=== PATIENT | female | born 1985 | race Caucasian/White ===

== ENCOUNTER → 2017-01-06 | Emergency (ER) | payer SELFPAY ==
[~2017-01-06] MED LIST: CEPHALEXIN MONOHYDRATE 250 MG CAPSULE (FP) ONE; CEPHALEXIN MONOHYDRATE 500 MG CAPSULE (UD) PO ONE; PHENAZOPYRIDINE HCL 100 MG TABLET (FP) ONE; PHENAZOPYRIDINE HCL 100 MG TABLET (FP) PO ONE
[2017-01-06 23:16] VITALS: BP 134/84; PULSE 100; TEMP 97.4; BMI 25.3
--- NOTE | 2017-01-06 23:21 | PDOC ---
History of Present Illness - History of Present Illness Initial Comments: 01/06/17 23:30 Patient is a 31 year old female with no significant medical hx who is presenting to the ED with several days of pain with urination. The patient states that its very uncomfortable for her to empty her bladder. She reports some associated yellow discharge. Denies abdominal pain, nausea, vomiting, or hematuria. The patient states that she's been with her boyfriend for the past two years. Denies chronic medications, past medical hx, and past surgeries. Social Hx: Occasional alcohol and tobacco use. LNMP: 11/26/16 <Jackeline Jacome - Last Filed: 01/06/17 23:30> <Jj Solomon - Last Filed: 01/07/17 00:50> - General Chief Complaint: Urinary Problem Stated Complaint: URINARY PROBLEM Time Seen by Provider: 01/06/17 23:20 Past History <Jackeline Jacome - Last Filed: 01/06/17 23:30> - Past Medical History Suicide Attempt (Hx): No - Reproductive History (#): 1 Para: 0 Cervical CA: No Dysfunctional Uterine Bleeding: No Ectopic : No Endometrial CA: No Polycystic Ovaries: No Therapeutic (s) & number: Yes Tubal Ligation: No Spontaneous : 0 - Immunization History Immunization Up to Date: Yes - Psycho/Social/Smoking Cessation Hx Anxiety: No Suicidal Ideation: No Smoking Status: Yes Smoking History: Never smoked Have you smoked in the past 12 months: No Number of Cigarettes Smoked Daily: 3 Information on smoking cessation initiated: No 'Breaking Loose' booklet given: 05/27/15 Hx Alcohol Use: No Drug/Substance Use Hx: No Substance Use Type: None <Jj Solomon - Last Filed: 01/07/17 00:50> - Past Medical History Allergies/Adverse Reactions: Allergies Allergy/AdvReac Type Severity Reaction Status Date / Time latex Allergy Mild Hives Verified 01/06/17 23:13 No Known Drug Allergies Allergy Verified 01/06/17 23:13 SEAFOOD Allergy Mild Hives Uncoded 01/06/17 23:13 Home Medications: Ambulatory Orders Cephalexin [Keflex] 500 mg PO QID #40 capsule 01/07/17 Phenazopyridine HCl [Pyridium] 200 mg PO TID #9 tablet 03/24/17 Review of Systems - Review of Systems Comments:: 01/06/17 23:33 GENERAL/CONSTITUTIONAL: No fever or chills. No weakness. HEAD, EYES, EARS, NOSE AND THROAT: No change in vision. No ear pain or discharge. No sore throat. CARDIOVASCULAR: No chest pain or shortness of breath. RESPIRATORY: No cough, wheezing, or hemoptysis. GASTROINTESTINAL: No nausea, vomiting, diarrhea or constipation. GENITOURINARY: Dysuria, vaginal discharge. No frequency. MUSCULOSKELETAL: No joint or muscle swelling or pain. No neck or back pain. SKIN: No rash NEUROLOGIC: No headache, vertigo, loss of consciousness, or change in strength/ sensation. <Jackeline Jacome - Last Filed: 01/06/17 23:30> *Physical Exam - Vital Signs Last Vital Signs Temp Pulse Resp BP Pulse Ox 97.4 F L 100 H 14 134/84 100 01/06/17 23:13 01/06/17 23:13 01/06/17 23:13 01/06/17 23:13 01/06/17 23:13 - Physical Exam Comments: 01/06/17 23:34 GENERAL: Awake, alert, and fully oriented, in no acute distress HEAD: No signs of trauma EYES: PERRLA, EOMI, sclera anicteric, conjunctiva clear ENT: Auricles normal inspection, hearing grossly normal, nares patent, oropharynx clear without exudates. Moist mucosa NECK: Normal ROM, supple, no lymphadenopathy, JVD, or masses LUNGS: Breath sounds equal, clear to auscultation bilaterally. No wheezes, and no crackles HEART: Regular rate and rhythm, normal S1 and S2, no murmurs, rubs or gallops ABDOMEN: Soft, nontender, normoactive bowel sounds. No guarding, no rebound. No masses EXTREMITIES: Normal range of motion, no edema. No clubbing or cyanosis. No cords, erythema, or tenderness NEUROLOGICAL: Cranial nerves II through XII grossly intact. Normal speech, normal gait SKIN: Warm, Dry, normal turgor, no rashes or lesions noted. ENDOCRINE: No increased thirst. No abnormal weight change. HEMATOLOGIC/LYMPHATIC: No anemia, easy bleeding, or history of blood clots. ALLERGIC/IMMUNOLOGIC: No hives or skin allergy. <Jackeline Jacome - Last Filed: 01/06/17 23:30> - Vital Signs Last Vital Signs Temp Pulse Resp BP Pulse Ox 97.4 F L 100 H 14 134/84 100 01/06/17 23:13 01/06/17 23:13 01/06/17 23:13 01/06/17 23:13 01/06/17 23:13 <Jj Solomon - Last Filed: 01/07/17 00:50> *DC/Admit/Observation/Transfer - Attestations Scribe Attestion: 01/06/17 23:34 Documentation prepared by Jackeline Jacome, acting as hospitalist medical director for Jj Solomon MD. <Jackeline Jacome - Last Filed: 01/06/17 23:30> - Discharge Dispostion Admit: No - Attestations Physician Attestion: 01/06/17 23:21 I, Dr. Jj Solomon, attest that this document has been prepared under my direction and personally reviewed by me in its entirety. I further attest, that it accurately reflects all work, treatment, procedures and medical decision -making performed by me. <Jj Solomon - Last Filed: 01/07/17 00:50> Diagnosis at time of Disposition: Urinary tract infection Qualifiers: Urinary tract infection type: acute cystitis Hematuria presence: without hematuria Qualified Code(s): N30.00 - Acute cystitis without hematuria - Discharge Dispostion Disposition: HOME Condition at time of disposition: Good - Prescriptions Prescriptions: Cephalexin [Keflex] 500 mg PO QID #40 capsule Phenazopyridine HCl [Pyridium] 200 mg PO TID #9 tablet - Patient Instructions Printed Discharge Instructions: DI for Urinary Tract Infection (UTI) Additional Instructions: Blanca- Sorry this is so uncomfortable. Hopefully you will feel alot better in a day or two. Drink 5 twenty ounce bottles of water daily while taking the antibiotic. Return to us if worse. See your regular doctor next week. Best- Dr. Jj Solomon [PS stop the penicillin- the keflex willl take care of your teeth as well.] - Post Discharge Activity Work/School Note: Back to Work
[2017-01-07] LABS: URINE APPEARANCE CLEAR; URINE BILIRUBIN NEGATIVE (NEGATIVE); URINE BLOOD NEGATIVE (NEGATIVE); URINE COLOR LTYELLOW; URINE GLUCOSE (UA) NEGATIVE (NEGATIVE); URINE KETONE NEGATIVE (NEGATIVE); URINE NITRITE NEGATIVE (NEGATIVE); URINE PROTEIN NEGATIVE (NEGATIVE); URINE UROBILINOGEN NEGATIVE E.U./dl (0.2-1.0)
[2017-01-07 00:03] LABS: URINE LEUK ESTERASE 3+ (NEGATIVE)
[2017-01-07 00:11] LABS: URINE BACTERIA RARE /hpf (NONE SEEN); URINE MUCUS RARE; URINE RBC 5 /hpf (0-3); URINE WBC 92 /hpf (3-5)
== END | disposition home or self-care (01) ==
LOC: JER 22:59
DX: N30.00 Acute cystitis without hematuria (principal)
CPT/HCPCS: 36415; 81003; 81015; 84703; 87086; 87491; 87591; 99281-25

== ENCOUNTER 2017-06-09 05:01 | Emergency (ER) | payer SELFPAY ==
[2017-06-09 06:07] VITALS: BP 116/77; PULSE 82; BMI 24.3
[2017-06-09] MEDS ORDERED: KETOROLAC TROMETHAMINE 30 MG/1 ML VIAL IM ONE (06:26)
[2017-06-09] MEDS ORDERED: CLINDAMYCIN HCL 300 MG CAPSULE PO ONE (06:26)
--- NOTE | 2017-06-09 06:27 | PDOC ---
*Physical Exam - Vital Signs Last Vital Signs Temp Pulse Resp BP Pulse Ox 82 14 116/77 99 06/09/17 05:46 06/09/17 05:46 06/09/17 05:46 06/09/17 05:46 Medical Decision Making - Medical Decision Making 06/09/17 06:26 agree with care from coal deliverer Laith *DC/Admit/Observation/Transfer Diagnosis at time of Disposition: Pain due to dental caries - Prescriptions Prescriptions: Clindamycin [Cleocin -] 300 mg PO Q8H #30 capsule Oxycodone HCl/Acetaminophen [Endocet 7.5-325 mg Tablet] 1 each PO Q4H PRN #24 tablet MDD 6 tabs PRN Reason: Severe Pain Ketorolac Tromethamine [Toradol] 10 mg PO TID PRN #21 tablet PRN Reason: Mild Pain - Patient Instructions Printed Discharge Instructions: DI for Dental Pain Additional Instructions: Take medications as prescribed. Do not drive, drink alcohol, or operate heavy machinery while taking Endocet. Follow up with your dentist. Have fun at [employer]!! Print Language: VINCENTIAN
--- NOTE | 2017-06-09 06:32 | PDOC ---
History of Present Illness - General Chief Complaint: Toothache Stated Complaint: TOOTHACHE Time Seen by Provider: 06/09/17 06:23 History Source: Patient Exam Limitations: No Limitations - History of Present Illness Initial Comments: 06/09/17 06:27 32yo Female patient presents to ED c/o dental pain, which began last night. Patient states she broke her tooth 1 week ago, and has not follow up with dental. She states pain is sudden onset, traveling to side of face, ear and causing headache. She denies fever, cough, congestion, CP, diff breathing or any other complaints at this time. LNMP: May 20. Timing/Duration: getting worse Severity: moderate Modifying Factors: worse with: cold therapy, eating, immobilization, medication , movement, rest, other Associated Symptoms: denies: denies symptoms, chest pain, cough, diaphoresis, fever/chills, headaches, loss of appetite, malaise, nausea/vomiting, rash, seizure, shortness of breath, syncope, weakness, other Past History - Travel Traveled outside of the country in the last 30 days: No Close contact w/someone who was outside of country & ill: No - Past Medical History Allergies/Adverse Reactions: Allergies Allergy/AdvReac Type Severity Reaction Status Date / Time latex Allergy Mild Hives Verified 06/09/17 05:46 No Known Drug Allergies Allergy Verified 06/09/17 05:46 SEAFOOD Allergy Mild Hives Uncoded 06/09/17 05:46 Home Medications: Ambulatory Orders Clindamycin [Cleocin -] 300 mg PO Q8H #30 capsule 06/09/17 Ketorolac Tromethamine [Toradol] 10 mg PO TID PRN #21 tablet 06/09/17 Oxycodone HCl/Acetaminophen [Endocet 7.5-325 mg Tablet] 1 each PO Q4H PRN #24 tablet MDD 6 tabs 06/09/17 Suicide Attempt (Hx): No - Reproductive History (#): 1 Para: 0 Cervical CA: No Dysfunctional Uterine Bleeding: No Ectopic : No Endometrial CA: No Polycystic Ovaries: No Therapeutic (s) & number: Yes Tubal Ligation: No Spontaneous : 0 - Immunization History Immunization Up to Date: Yes - Psycho/Social/Smoking Cessation Hx Anxiety: No Suicidal Ideation: No Smoking Status: Yes Smoking History: Current every day smoker Have you smoked in the past 12 months: No Number of Cigarettes Smoked Daily: 5 Information on smoking cessation initiated: No 'Breaking Loose' booklet given: 05/27/15 Hx Alcohol Use: No Drug/Substance Use Hx: No Substance Use Type: None Review of Systems - Review of Systems Able to Perform ROS?: Yes Is the patient limited Croatian proficient: No HEENTM: Yes: Dental Problems All Other Systems: Reviewed and Negative *Physical Exam - Vital Signs Last Vital Signs Temp Pulse Resp BP Pulse Ox 82 14 116/77 99 06/09/17 05:46 06/09/17 05:46 06/09/17 05:46 06/09/17 05:46 - Physical Exam General Appearance: Yes: Nourished, Appropriately Dressed, Mild Distress. No: Apparent Distress, Moderate Distress, Severe Distress HEENT: positive: EOMI, SHAHRIAR, Normal ENT Inspection, Normal Voice, Symmetrical, TMs Normal, Pharynx Normal, Other (Tooth #20 with broken enamel, decay. No nerve root exposure noted. Mild gum line inflammation.) Neck: positive: Trachea midline, Normal Thyroid, Supple. negative: Lymphadenopathy (R), Lymphadenopathy (L), Rigidity, Tender lateral Respiratory/Chest: positive: Lungs Clear, Normal Breath Sounds. negative: Chest Tender, Respiratory Distress, Accessory Muscle Use, Labored Respiration, Rapid RR, Rhonchi, Stridor, Wheezing Cardiovascular: positive: Regular Rhythm, Regular Rate Extremity: positive: Normal Capillary Refill, Normal Inspection, Normal Range of Motion. 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 NML intact, Fully Oriented, Alert, Normal Mood/ Affect, Normal Response, Motor Strength 5/5 *DC/Admit/Observation/Transfer Diagnosis at time of Disposition: Pain due to dental caries - Discharge Dispostion Disposition: HOME Condition at time of disposition: Stable Admit: No - Prescriptions Prescriptions: Clindamycin [Cleocin -] 300 mg PO Q8H #30 capsule Oxycodone HCl/Acetaminophen [Endocet 7.5-325 mg Tablet] 1 each PO Q4H PRN #24 tablet MDD 6 tabs PRN Reason: Severe Pain Ketorolac Tromethamine [Toradol] 10 mg PO TID PRN #21 tablet PRN Reason: Mild Pain - Patient Instructions Printed Discharge Instructions: DI for Dental Pain Additional Instructions: Take medications as prescribed. Do not drive, drink alcohol, or operate heavy machinery while taking Endocet. Follow up with your dentist. Have fun at [employer]!! Print Language: SOUTH KOREAN
[2017-06-09] MEDS ORDERED: CLINDAMYCIN HCL 150 MG CAPSULE (FP) ONE (07:12)
[2017-06-09] MEDS ORDERED: KETOROLAC TROMETHAMINE 30 MG/1 ML VIAL ONE (07:12)
== END 2017-06-09 07:25 | disposition home or self-care (01) ==
LOC: JER 05:01
PROC: 3E0233Z Introduction of Anti-inflammatory into Muscle, Percutaneous Approach (ICD-10-PCS; principal; 2017-06-09)
DX: K02.9 Dental caries, unspecified (principal)
CPT/HCPCS: 99282-25

== ENCOUNTER 2017-10-12 18:37 | Emergency (ER) | payer BC ==
--- NOTE | 2017-10-12 19:17 | PDOC ---
Rapid Medical Evaluation Time Seen by Provider: 10/12/17 19:17 Medical Evaluation: Allergies Allergy/AdvReac Type Severity Reaction Status Date / Time latex Allergy Mild Hives Verified 06/09/17 05:46 No Known Drug Allergies Allergy Verified 06/09/17 05:46 SEAFOOD Allergy Mild Hives Uncoded 06/09/17 05:46 10/12/17 19:17 I have performed a brief-in person evaluation of this patient. The patient presents with a chief complaint of: sore throat Pertinent physical exam findings: Tonsils erythema I have ordered the following: rapid strep The patient will proceed to the ED for further evaulation.
[2017-10-12 19:20] VITALS: BP 126/78; PULSE 98; TEMP 99.2; BMI 26.0
--- NOTE | 2017-10-12 19:35 | PDOC ---
History of Present Illness - General Chief Complaint: Sore Throat Stated Complaint: PAIN Time Seen by Provider: 10/12/17 19:17 History Source: Patient Exam Limitations: No Limitations - History of Present Illness Initial Comments: 10/12/17 19:31 Patient here with complaints of fevers Tmax 102.4 yesterday, headache, runny nose and sore throat pain. States works for [employer] in multiple people are sick with multiple problems including strep and influenza. Is uncertain as to status, but has some nauseousness and vomited once today. Timing/Duration: unsure, 24 hours Severity: mild, moderate Associated Symptoms: reports: denies symptoms, cough, fever/chills, headaches, loss of appetite, malaise, nausea/vomiting Past History - Travel Traveled outside of the country in the last 30 days: No Close contact w/someone who was outside of country & ill: No - Past Medical History Allergies/Adverse Reactions: Allergies Allergy/AdvReac Type Severity Reaction Status Date / Time latex Allergy Mild Hives Verified 10/12/17 19:17 No Known Drug Allergies Allergy Verified 10/12/17 19:17 SEAFOOD Allergy Mild Hives Uncoded 06/09/17 05:46 Home Medications: Ambulatory Orders Azithromycin [Zithromax -] 250 mg PO UTDICT #6 tab 10/12/17 COPD: No Other medical history: Pt denies - Reproductive History (#): 1 Para: 0 Cervical CA: No Dysfunctional Uterine Bleeding: No Ectopic : No Endometrial CA: No Polycystic Ovaries: No Therapeutic (s) & number: Yes Tubal Ligation: No Spontaneous : 0 - Immunization History Immunization Up to Date: Yes - Suicide/Smoking/Psychosocial Hx Smoking Status: Yes Smoking History: Current every day smoker Have you smoked in the past 12 months: Yes Number of Cigarettes Smoked Daily: 3 Information on smoking cessation initiated: No 'Breaking Loose' booklet given: 05/27/15 Hx Alcohol Use: No Drug/Substance Use Hx: No Substance Use Type: None Review of Systems - Review of Systems Able to Perform ROS?: Yes Is the patient limited Citizen Of [place] proficient: Yes Constitutional: Yes: Symptoms Reported, See HPI, Chills, Fever, Malaise HEENTM: Yes: Symptoms Reported, See HPI, Nose Congestion, Throat Pain, Difficulty Swallowing Respiratory: Yes: Symptoms reported, See HPI, Cough, Shortness of Breath, Wheezing Cardiac (ROS): No: Symptoms Reported ABD/GI: Yes: Symptoms Reported, See HPI, Nausea, Vomiting. No: Constipated, Diarrhea Integumentary: Yes: See HPI. No: Symptoms Reported, Bruising Neurological: Yes: Symptoms reported, See HPI, Headache All Other Systems: Reviewed and Negative *Physical Exam - Vital Signs Last Vital Signs Temp Pulse Resp BP Pulse Ox 99.2 F 98 H 18 126/78 99 10/12/17 19:18 10/12/17 19:18 10/12/17 19:18 10/12/17 19:18 10/12/17 19:18 - Physical Exam General Appearance: Yes: Nourished, Appropriately Dressed, Apparent Distress, Mild Distress, Moderate Distress HEENT: positive: SHAHRIAR (glassy), TMs Normal (congested but landmarks easily visualized), Pharyngeal Erythema (no exudate noted but beefy red), Nasal Congestion, Rhinorrhea, Sinus Tenderness. negative: Pharynx Normal Neck: positive: Supple, Lymphadenopathy (R), Lymphadenopathy (L). negative: Tender Respiratory/Chest: positive: Lungs Clear, Normal Breath Sounds. negative: Rhonchi, Wheezing Gastrointestinal/Abdominal: positive: Normal Bowel Sounds, Soft. 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 Avoid contact with others until fevers and cough resolved as this is very contagious Lots of handwashing and good hygiene Continue [id number] medications for symptomatic relief Tylenol or Motrin for fever and pain Take all of Tamiflu as directed: 1 tab every 12 hours for 5 days Followup with private physician in one to 2 days as needed or if worsening Return to emergency department for worsened symptoms, fevers, dehydration Influenza takes between 5 and 7 days for resolution To not participate in any activity, work, or school until fevers and cough are gone for at least one day - Post Discharge Activity Forms/Work/School Notes: Back to Work
== END 2017-10-12 20:43 | disposition home or self-care (01) ==
LOC: JERFT 18:37
DX: J02.0 Streptococcal pharyngitis (principal); B95.0 Streptococcus, group A, as the cause of diseases classified elsewhere; F17.210 Nicotine dependence, cigarettes, uncomplicated
CPT/HCPCS: 84703; 87070; 87077; 87430; 99281-25

== ENCOUNTER 2018-02-23 07:24 | Day surgery (SDC) | payer BC ==
[2018-02-23] MEDS ORDERED: ACETAMINOPHEN 325 MG TABLET (FP) PO ONE (10:00)
[2018-02-23] MEDS ORDERED: DIPHENHYDRAMINE 50 MG in SODIUM CHLORIDE 50 ML IVPB ONE (10:00)
[2018-02-23] MEDS ORDERED: FERRIC CARBOXYMALTOSE 750 MG in SODIUM CHLORIDE 250 ML IVPB ONE (10:15)
[2018-02-23 17:18] VITALS: BP 124/81; PULSE 85; TEMP 98.2
== END 2018-02-23 18:00 | disposition home or self-care (01) ==
LOC: JONCNONCHE 07:24 → J7W 16:20 → JONCNONCHE 18:00
PROVIDERS: ATTEND Internal Medicine Hematology & Oncology
PROC: 3E033GC Introduction of Other Therapeutic Substance into Peripheral Vein, Percutaneous Approach (ICD-10-PCS; principal; 2018-02-23)
DX: D50.9 Iron deficiency anemia, unspecified (principal); D51.0 Vitamin B12 deficiency anemia due to intrinsic factor deficiency
CPT/HCPCS: 96365; 96375; J1439

== ENCOUNTER 2018-03-02 07:29 | Day surgery (SDC) | payer BC ==
[2018-03-02] MEDS ORDERED: DIPHENHYDRAMINE 50 MG in SODIUM CHLORIDE 50 ML IVPB ONE (12:00)
[2018-03-02] MEDS ORDERED: ACETAMINOPHEN 325 MG TABLET (FP) PO ONE (12:00)
[2018-03-02] MEDS ORDERED: FERRIC CARBOXYMALTOSE 750 MG in SODIUM CHLORIDE 250 ML IVPB ONE (12:30)
[2018-03-02 17:25] VITALS: TEMP 98.2
[2018-03-02 18:43] VITALS: BP 103/65; PULSE 75
== END 2018-03-02 18:44 | disposition home or self-care (01) ==
LOC: JONCNONCHE 07:29 → J7W 16:19 → JONCNONCHE 18:44
PROVIDERS: ATTEND Internal Medicine Hematology & Oncology
PROC: 3E033GC Introduction of Other Therapeutic Substance into Peripheral Vein, Percutaneous Approach (ICD-10-PCS; principal; 2018-03-02)
DX: D50.9 Iron deficiency anemia, unspecified (principal)
CPT/HCPCS: 96365; J1439

== ENCOUNTER 2018-03-06 18:45 | Emergency (ER) | payer BC ==
--- NOTE | 2018-03-06 19:17 | PDOC ---
Rapid Medical Evaluation Time Seen by Provider: 03/06/18 19:17 Medical Evaluation: Allergies Allergy/AdvReac Type Severity Reaction Status Date / Time latex Allergy Mild Hives Verified 10/12/17 19:17 No Known Drug Allergies Allergy Verified 10/12/17 19:17 SEAFOOD Allergy Mild Hives Uncoded 06/09/17 05:46 03/06/18 19:18 Healthy 33 year old female with about 2 weeks of small abscess after shaving pubic hair, is concerned because continues to drain pus daily. No fevers/chills or other systemic symptoms. To for further evaluation.
[2018-03-06 19:20] VITALS: BP 118/68; PULSE 72; TEMP 97.9; BMI 27.3
--- NOTE | 2018-03-06 21:29 | PDOC ---
History of Present Illness - General Chief Complaint: Wound Stated Complaint: REDNESS TO AFFECTED AREA Time Seen by Provider: 03/06/18 19:17 - History of Present Illness Initial Comments: 33-year-old healthy female free of any medical issues presents for evaluation of a painful nodule on the left side of her pubic area after shaving about 2 weeks ago. She states the he has been draining on its own she comes for further evaluation and treatment options. 03/06/18 21:25 Past History - Past Medical History Allergies/Adverse Reactions: Allergies Allergy/AdvReac Type Severity Reaction Status Date / Time latex Allergy Mild Hives Verified 03/06/18 19:18 No Known Drug Allergies Allergy Verified 03/06/18 19:18 SEAFOOD Allergy Mild Hives Uncoded 03/06/18 19:18 Home Medications: Ambulatory Orders Iron,Carbonyl [Iron Chews] 15 mg PO DAILY 03/06/18 Anemia: Yes (fe ++ IV treatments) COPD: No - Reproductive History (#): 1 Para: 0 Cervical CA: No Dysfunctional Uterine Bleeding: No Ectopic : No Endometrial CA: No Polycystic Ovaries: No Therapeutic (s) & number: Yes Tubal Ligation: No Spontaneous : 0 - Immunization History Immunization Up to Date: Yes - Suicide/Smoking/Psychosocial Hx Smoking Status: Yes Smoking History: Current every day smoker Have you smoked in the past 12 months: Yes Number of Cigarettes Smoked Daily: 3 Information on smoking cessation initiated: No 'Breaking Loose' booklet given: 05/27/15 Hx Alcohol Use: No Drug/Substance Use Hx: No Substance Use Type: None Review of Systems - Review of Systems Comments:: GENERAL/CONSTITUTIONAL: [No fever or chills. No weakness. No weight change.] HEAD, EYES, EARS, NOSE AND THROAT: [No change in vision. No ear pain or discharge. No sore throat.] CARDIOVASCULAR: [No chest pain or shortness of breath.] RESPIRATORY: [No cough, wheezing, or hemoptysis.] GASTROINTESTINAL: [No nausea, vomiting, diarrhea or constipation. No rectal bleeding.] GENITOURINARY: [No dysuria, frequency, or change in urination.] MUSCULOSKELETAL: [No joint or muscle swelling or pain. No neck or back pain.] SKIN AND BREASTS: [No rash or easy bruising. Tender painful area about the left mons pubis.] NEUROLOGIC: [No headache, vertigo, loss of consciousness, or loss of sensation.] PSYCHIATRIC: [No depression or anxiety.] ENDOCRINE: [No increased thirst. No abnormal weight change.] HEMATOLOGIC/LYMPHATIC: [No anemia, easy bleeding, or history of blood clots.] ALLERGIC/IMMUNOLOGIC: [No hives or skin allergy. No latex allergy.] 03/06/18 21:26 *Physical Exam - Vital Signs Last Vital Signs Temp Pulse Resp BP Pulse Ox 97.9 F 72 16 118/68 100 03/06/18 19:19 03/06/18 19:19 03/06/18 19:19 03/06/18 19:19 03/06/18 19:19 - Physical Exam Comments: There is a small subcentimeter firm tender area about the left mons pubis but normal surrounding skin color and temperature mild induration no focal fluctuance or sensitivity. 03/06/18 21:26 Moderate Sedation - Procedure Monitoring Vital Signs: Vital Signs Temp Pulse Resp BP Pulse Ox 97.9 F 72 16 118/68 100 03/06/18 19:19 03/06/18 19:19 03/06/18 19:19 03/06/18 19:19 03/06/18 19:19 Medical Decision Making - Medical Decision Making Likely a resolving folliculitis or superficial abscess there is nothing fluctuant to drain I will have her follow-up with her process operator. 03/06/18 21:26 *DC/Admit/Observation/Transfer Diagnosis at time of Disposition: Folliculitis - Discharge Dispostion Disposition: HOME Condition at time of disposition: Stable Decision to Admit order: No - Referrals Referrals: Henri Schmitt MD [Staff Physician] - - Patient Instructions Printed Discharge Instructions: Folliculitis, DI for Folliculitis Additional Instructions: Follow-up with her process operator 1-2 days for further evaluation and treatment options. In the meantime if her symptoms worsen or go unresolved prior to follow -up return to the emergency room. He may treat this with warm compresses multiple times a day if area becomes increasingly tender and painful or starts to drain come back to the emergency room for further evaluation and treatment and possible incision and drainage. - Post Discharge Activity
== END 2018-03-06 21:32 | disposition home or self-care (01) ==
LOC: JERFT 18:45
DX: L73.8 Other specified follicular disorders (principal); D50.8 Other iron deficiency anemias; F17.210 Nicotine dependence, cigarettes, uncomplicated
CPT/HCPCS: 99281-25

== ENCOUNTER 2018-08-03 22:29 | Emergency (ER) | payer BC ==
[2018-08-03 22:33] VITALS: BP 138/92; PULSE 96; TEMP 97.7; BMI 27.3
--- NOTE | 2018-08-03 23:49 | PDOC ---
History of Present Illness - General History Source: Patient Exam Limitations: No Limitations - History of Present Illness Initial Comments: 08/03/18 23:53 The patient is a 33 year old female with a significant past medical history of fibroids who presents to the ED with 2 days of vaginal bleeding. Patient reports light vaginal bleeding that started yesterday. She states her symptoms progressively worsened tonight and her bleeding got heavier and she developed large blood clots. Patient also reports lower abdominal cramping and lightheadedness associated with present symptoms. Patient states she typically gets heavy periods that are irregular, but states tonight is worst than her typical periods. Porfirio fever or chills. Denies nausea, vomiting, or diarrhea. Denies any other symptoms. <Torey Norman - Last Filed: 08/03/18 23:53> <Kristel Vieyra - Last Filed: 08/04/18 01:49> - General Chief Complaint: Vaginal Bleeding Stated Complaint: VAGINAL BLEEDING Past History <Torey Norman - Last Filed: 08/03/18 23:53> - Past Medical History Anemia: Yes (fe ++ IV treatments) COPD: No Other medical history: FIBROIDS - Reproductive History (#): 1 Para: 0 Cervical CA: No Dysfunctional Uterine Bleeding: No Ectopic : No Endometrial CA: No Polycystic Ovaries: No Therapeutic (s) & number: Yes Tubal Ligation: No Spontaneous : 0 - Immunization History Immunization Up to Date: Yes - Suicide/Smoking/Psychosocial Hx Smoking Status: Yes Smoking History: Never smoked Have you smoked in the past 12 months: Yes Number of Cigarettes Smoked Daily: 3 Information on smoking cessation initiated: No 'Breaking Loose' booklet given: 05/27/15 Hx Alcohol Use: No Drug/Substance Use Hx: No Substance Use Type: None <Kristel Vieyra - Last Filed: 08/04/18 01:49> - Past Medical History Allergies/Adverse Reactions: Allergies Allergy/AdvReac Type Severity Reaction Status Date / Time latex Allergy Mild Hives Verified 08/03/18 22:33 No Known Drug Allergies Allergy Verified 08/03/18 22:33 SEAFOOD Allergy Mild Hives Uncoded 08/03/18 22:33 Home Medications: Ambulatory Orders Iron,Carbonyl [Iron Chews] 15 mg PO DAILY 03/06/18 Amoxicillin/Potassium Clav [Augmentin 500-125 Tablet] 1 each PO BID #10 tablet 06/06/18 Hydrocodone/Acetaminophen [Vicodin 5-300 mg Tablet] 1 each PO Q8H PRN #12 tablet MDD 3 06/06/18 Review of Systems - Review of Systems Constitutional: No: Chills, Diaphoresis HEENTM: No: Eye Pain Respiratory: No: Cough, Orthopnea ABD/GI: No: See HPI : No: Burning, Dysuria Musculoskeletal: No: Back Pain, Gout Integumentary: No: Bruising, Change in Color Neurological: No: Headache, Numbness Hematologic/Lymphatic: Yes: Anemia All Other Systems: Reviewed and Negative <Kristel Vieyra - Last Filed: 08/04/18 01:49> *Physical Exam - Vital Signs Last Vital Signs Temp Pulse Resp BP Pulse Ox 97.7 F 96 H 18 138/92 100 08/03/18 22:30 08/03/18 22:30 08/03/18 22:30 08/03/18 22:30 08/03/18 22:30 - Physical Exam Comments: 08/03/18 23:53 GENERAL: Awake, alert, and fully oriented, in no acute distress HEAD: No signs of trauma EYES: PERRLA, EOMI, sclera anicteric, conjunctiva clear ENT: Auricles normal inspection, hearing grossly normal, nares patent, oropharynx clear without exudates. Moist mucosa NECK: Normal ROM, supple, no lymphadenopathy, JVD, or masses LUNGS: Breath sounds equal, clear to auscultation bilaterally. No wheezes, and no crackles HEART: Regular rate and rhythm, normal S1 and S2, no murmurs, rubs or gallops ABDOMEN: Soft, nontender, normoactive bowel sounds. No guarding, no rebound. No masses PELVIC: + there is pooling in the vaginal vault. Os is closed. Palpable posterior fibroid. EXTREMITIES: Normal range of motion, no edema. No clubbing or cyanosis. No cords, erythema, or tenderness NEUROLOGICAL: Cranial nerves II through XII grossly intact. Normal speech, normal gait SKIN: Warm, Dry, normal turgor, no rashes or lesions noted. <Torey Norman - Last Filed: 08/03/18 23:53> - Vital Signs Last Vital Signs Temp Pulse Resp BP Pulse Ox 97.7 F 96 H 18 138/92 100 08/03/18 22:30 08/03/18 22:30 08/03/18 22:30 08/03/18 22:30 08/03/18 22:30 <Kristel Vieyra - Last Filed: 08/04/18 01:49> ED Treatment Course - LABORATORY CBC & Chemistry Diagram: 08/04/18 00:50 08/04/18 00:50 <Kristel Vieyra - Last Filed: 08/04/18 01:49> Medical Decision Making - Medical Decision Making 08/03/18 23:42 33 yo F with h/o fibroids here with c/o vaginal bleeding. states has h/o heavy periods. usually regular, last 3 - 4 days, but very heavy. today started bleeding, had clots. started 1 hr ago. denies ab pain no n/v no cp no sob. follows with dr. polanco who states she will be scheduled for a myomectomy. differential anemia, dysfunctional bleeding. and/ or ectopic. plan labs had recet tvus 1 month ago. ucg <Kristel Vieyra - Last Filed: 08/04/18 01:49> *DC/Admit/Observation/Transfer - Attestations Scribe Attestion: 08/03/18 23:53 Documentation prepared by Torey Norman, acting as coroner/medical examiner for Kristel Vieyra MD. <Torey Norman - Last Filed: 08/03/18 23:53> - Discharge Dispostion Decision to Admit order: No <Kristel Vieyra - Last Filed: 08/04/18 01:49> Diagnosis at time of Disposition: Vaginal bleeding - Referrals Referrals: Deion Nielsen [Primary Care Provider] - Ayaan Polanco MD [Staff Physician] - - Patient Instructions Printed Discharge Instructions: DI for Vaginal Bleeding, Uterine Fibroids Additional Instructions: you should follow up with dr. falk, call tomorrow to schedule. return for feeling dizzy, worsening pain or any concerns. you can take ibuprofen 400 mg every 8 hrs as needed for pain. - Post Discharge Activity
[2018-08-04 01:40] LABS: BASO % 0.8 % (0-2.0); HEMATOCRIT 38.8 % (32.4-45.2); HEMOGLOBIN 12.9 GM/dL (10.7-15.3); MCHC 33.2 g/dl (32.0-36.0); MEAN CELL VOLUME 87.4 fl (80-96); MEAN PLT VOLUME 8.6 fl (7.5-11.1); MONO % 4.4 % (3.8-10.2); NEUT % 74.8 % (42.8-82.8); PLATELET COUNT 392 K/MM3 (134-434); RBC 4.44 M/mm3 (3.60-5.2); WHITE BLOOD COUNT 10.4 K/mm3 (4.0-10.0)
[2018-08-04 02:05] LABS: URINE APPEARANCE CLEAR; URINE BILIRUBIN NEGATIVE (<2.0 mg/dL); URINE COLOR LTYELLOW; URINE GLUCOSE (UA) NEGATIVE (NEGATIVE); URINE KETONE NEGATIVE (NEGATIVE); URINE LEUK ESTERASE NEGATIVE (NEGATIVE); URINE NITRITE NEGATIVE (NEGATIVE); URINE PROTEIN NEGATIVE (NEGATIVE); URINE UROBILINOGEN NEGATIVE mg/dL (0.2-1.0)
[2018-08-04 02:07] LABS: HCG,QUALITATIVE URINE Negative
[2018-08-04 02:22] LABS: ALBUMIN 3.8 g/dl (3.4-5.0); ALK PHOS 64 U/L (45-117); ANION GAP 6 MMOL/L (8-16); BILIRUBIN,TOTAL 0.3 mg/dL (0.2-1); BLOOD UREA NITROGEN 14 mg/dL (7-18); CALCIUM 9.4 mg/dL (8.5-10.1); CHLORIDE 106 mmol/L (98-107); CO2 28 mmol/L (21-32); CREATININE 0.9 mg/dL (0.55-1.3); GLUCOSE,RANDOM 99 mg/dL (74-106); POTASSIUM 4.5 mmol/L (3.5-5.1); SGOT/AST 13 U/L (15-37); SGPT/ALT 16 U/L (13-61); SODIUM 140 mmol/L (136-145); TOT PROT 7.8 g/dl (6.4-8.2)
== END 2018-08-04 03:24 | disposition home or self-care (01) ==
LOC: JER 22:29
DX: D25.9 Leiomyoma of uterus, unspecified (principal); D50.9 Iron deficiency anemia, unspecified
CPT/HCPCS: 36415; 80053; 81003; 84702; 84703; 85025; 99282-25

== ENCOUNTER 2018-10-03 05:09 | Inpatient (IN) | payer BC ==
[2018-09-28 17:53] VITALS: BMI 26.4
--- NOTE | 2018-10-03 07:06 | HP ---
Past Medical History - Primary Care Physician PCP:: Ayaan Yang - Admission Chief Complaint: menometrorrhagia, fibroid uterus, anemia, infertility History of Present Illness: 33 yo f with x of irregular , heavy menses with severe dysmenorrhia and anemia with large fibroid uterus admitted for abdominal myomectomy with chromotubation and allnecessary procedures , aware risks of myomectomy, hemorrhage, infection, anesthesia rsks, post op complications, infection, infertility,possible hysterecomy discussed with patient. History Source: Patient Limitations to Obtaining History: No Limitations - Past Medical History Heme/Onc: Yes: Anemia - Past Surgical History Hx Myomectomy: No Hx Transabdominal Cerclage: No - Smoking History Smoking history: Current every day smoker Have you smoked in the past 12 months: Yes Aproximately how many cigarettes per day: 5 - Alcohol/Substance Use Hx Alcohol Use: Yes (occas) - Social History History of Recent Travel: No Home Medications - Allergies Allergies/Adverse Reactions: Allergies Allergy/AdvReac Type Severity Reaction Status Date / Time latex Allergy Mild "itchy and Verified 09/28/18 17:53 hives" No Known Drug Allergies Allergy Verified 09/28/18 17:53 SEAFOOD Allergy Mild "airway Uncoded 09/28/18 17:53 closes up" - Home Medications Home Medications: Ambulatory Orders Iron 18 mg PO BID 09/28/18 Naproxen Sodium [Aleve] 220 mg PO PRN PRN 09/28/18 Review of Systems - Review of Systems Constitutional: reports: Malaise, Weakness Eyes: reports: No Symptoms HENT: reports: No Symptoms Cardiovascular: reports: No Symptoms Respiratory: reports: No Symptoms Gastrointestinal: reports: Abdominal Pain, Bloating Genitourinary: reports: Menses, Pain, Vaginal Bleeding Breasts: reports: No Symptoms Reported Musculoskeletal: reports: No Symptoms Integumentary: reports: No Symptoms Neurological: reports: No Symptoms Endocrine: reports: No Symptoms Hematology/Lymphatic: reports: No Symptoms Psychiatric: reports: No Symptoms Pain Intensity: 6 Physical Exam-BLOCK CUBER Constitutional: Yes: Well Nourished, No Distress, Calm Eyes: Yes: WNL, Conjunctiva Clear, EOM Intact HENT: Yes: WNL, Atraumatic, Normocephalic Neck: Yes: WNL, Supple, Trachea Midline Cardiovascular: Yes: WNL, Regular Rate and Rhythm Respiratory: Yes: WNL, Regular, CTA Bilaterally Gastrointestinal: Yes: WNL ...Rectal Exam: Yes: WNL Renal/: Yes: WNL Pelvis: Yes: WNL External Genitalia: Yes: Normal Vaginal Exam: Yes: Normal Cervix: Yes: Normal Uterus: Yes: Enlarged, Firm, Lumpy, Mass, Tender Adnexa: Not Palpable: Left, Right Breast(s): Yes: WNL Musculoskeletal: Yes: WNL Extremities: Yes: WNL Edema: No Integumentary: Yes: WNL Neurological: Yes: WNL, Alert, Oriented ...Motor Strength: WNL Psychiatric: Yes: WNL, Alert, Oriented Problem List - Problem (1) Menometrorrhagia Code(s): N92.1 - EXCESSIVE AND FREQUENT MENSTRUATION WITH IRREGULAR CYCLE (2) Dysmenorrhea Code(s): N94.6 - DYSMENORRHEA, UNSPECIFIED (3) Intramural and submucous leiomyoma of uterus Code(s): D25.1 - INTRAMURAL LEIOMYOMA OF UTERUS; D25.0 - SUBMUCOUS LEIOMYOMA OF UTERUS (4) Infertility Code(s): [id number] - Assessment/Plan abdominal myomectomy, chromotubation and all necessary procedures
[2018-10-03] MEDS ORDERED: VASOPRESSIN 20 UNITS/ML VIAL IV ONE (07:52)
[2018-10-03] MEDS ORDERED: DEXAMETHASONE SOD PHOSPHATE/PF 10 MG/ML SDV ONE (08:59)
[2018-10-03] MEDS ORDERED: ROPIVACAINE HCL 0.5% 30ML VIAL ONE (09:00)
[2018-10-03] MEDS ORDERED: DESFLURANE GAS 240 ML BOTTLE IH ONE (09:52)
[2018-10-03] MEDS ORDERED: MIDAZOLAM HCL 2 MG/2 ML SINGLE DOSE VIAL ONE (09:57)
[2018-10-03] MEDS ORDERED: ACETAMINOPHEN 325 MG TABLET (FP) ONE (10:01)
[2018-10-03] MEDS ORDERED: IBUPROFEN 400 MG TABLET (FP) PO ONE (10:01)
[2018-10-03] MEDS ORDERED: ROCURONIUM BROMIDE 50 MG/5 ML VIAL ONE ×3 (10:19→12:45)
[2018-10-03] MEDS ORDERED: PROPOFOL 20 ML ONE (10:19)
[2018-10-03] MEDS ORDERED: fentaNYL CITRATE 250 MCG/5 ML VIAL ONE ×2 (10:20→13:04)
[2018-10-03] MEDS ORDERED: ceFAZolin 2 GRAM PREMIX BAG IVPB ONE (10:35)
[2018-10-03] MEDS ORDERED: ceFAZolin SODIUM 1 GM VIAL ONE ×4 (10:41→15:11)
[2018-10-03] MEDS ORDERED: KETOROLAC TROMETHAMINE 30 MG/1 ML VIAL ONE (10:42)
[2018-10-03] MEDS ORDERED: DEXAMETHASONE SOD PHOSPHATE 4 MG/1 ML VIAL ONE (10:42)
[2018-10-03] MEDS ORDERED: SODIUM CHLORIDE 0.9% P/F 10 ML VIAL IJ ONE (12:38)
[2018-10-03] MEDS ORDERED: ceFAZolin SODIUM 1 GM VIAL IVPB ONE (12:41)
[2018-10-03] MEDS ORDERED: GLYCOPYRROLATE 0.2 MG/1 ML VIAL ONE ×2 (13:05)
[2018-10-03] MEDS ORDERED: NEOSTIGMINE METHYLSULFATE 0.5 MG/ML - 10 ML MDV ONE (13:05)
[2018-10-03] MEDS: HYDROmorphone HCl 2 MG/ML VIAL ONE ×4 (13:35→14:30)
[2018-10-03] MEDS ORDERED: PROMETHAZINE HCL 25 MG/1 ML VIAL IVPUSH PRN (13:39)
[2018-10-03] MEDS ORDERED: DEXAMETHASONE SOD PHOSPHATE 4 MG/1 ML VIAL IVPUSH PRN (13:39)
[2018-10-03] MEDS ORDERED: IBUPROFEN 800 MG/8 ML IJ IVPB PRN (13:44)
[2018-10-03] MEDS ORDERED: IBUPROFEN 600 MG TABLET (FP) PO PRN (13:44)
[2018-10-03] MEDS ORDERED: ONDANSETRON 4 MG/2 ML VIAL IVPUSH PRN (13:44)
[2018-10-03] MEDS ORDERED: HYDROmorphone *PCA* 10MG/50ML DISP.SYRIN PCA SCH (13:45)
[2018-10-03] MEDS: ELECTROLYTE-148 SOLN 1,000 ML IV SCH (15:09)
[2018-10-03] MEDS: CEFAZOLIN 2 GM/D5W 2 GM/50 ML ML IVPB SCH ×2 (15:15→20:59)
[2018-10-03] MEDS: LACTATED RINGERS SOLUTION 1,000 ML IV SCH (18:45)
[2018-10-03] MEDS: oxyCODONE HCL 5 MG TABLET PO PRN (21:18)
[2018-10-04] MEDS: LACTATED RINGERS SOLUTION 1,000 ML IV SCH ×2 (01:05→18:08)
[2018-10-04] MEDS: oxyCODONE HCL 5 MG TABLET PO PRN (01:47)
[2018-10-04] MEDS: ONDANSETRON 4 MG/2 ML VIAL IVPUSH PRN ×3 (01:47→10:33)
[2018-10-04] MEDS: PROMETHAZINE HCL 25 MG/1 ML VIAL IVPB PRN (03:32)
[2018-10-04 06:51] LABS: HEMATOCRIT 27.1 % (32.4-45.2); HEMOGLOBIN 9.4 GM/dL (10.7-15.3); MCH 27.3 pg (25.7-33.7); MCHC 34.6 g/dl (32.0-36.0); PLATELET COUNT 354 K/MM3 (134-434); RBC 3.43 M/mm3 (3.60-5.2); RDW 14.3 % (11.6-15.6)
[2018-10-04 07:41] LABS: ANION GAP 9 MMOL/L (8-16); BLOOD UREA NITROGEN 8 mg/dL (7-18); CHLORIDE 103 mmol/L (98-107); CO2 25 mmol/L (21-32); CREATININE 0.7 mg/dL (0.55-1.3); GLUCOSE,RANDOM 99 mg/dL (74-106); POTASSIUM 3.9 mmol/L (3.5-5.1); SODIUM 137 mmol/L (136-145)
--- NOTE | 2018-10-04 07:51 | OP ---
DATE OF OPERATION: 10/03/2018 PREOPERATIVE DIAGNOSIS: Menometrorrhagia, dysmenorrhea, pelvic pain, and fibroid uterus. POSTOPERATIVE DIAGNOSIS: Menometrorrhagia, dysmenorrhea, pelvic pain, and fibroid uterus. PROCEDURE: Abdominal myomectomy and chromotubation. SURGEON: Ayaan Yang MD NETWORK SUPPORT ADMINISTRATOR: Artie Damico MD ANESTHESIA: General. ANESTHESIOLOGIST: George Joe MD ESTIMATED BLOOD LOSS: 300 mL. OPERATION: The patient was taken to the operating room, had adequate general anesthesia in dorsal lithotomy position. Examination under anesthesia revealed external genitalia to be normal. Vagina was normal. Cervix was clean, no gross lesion. Uterus was enlarged, approximately 14 weeks size, anteverted. Adnexa, no masses were palpable. Then, with a weighted speculum in the vagina, anterior lip of the cervix was grasped with a single-tooth tenaculum. Cervix was slightly dilated. Then, HUMI catheter was inserted intothe uterine cavity and inflated. Vanessa was inserted, and the patient was placed in dorsal supine position. A Pfannenstiel abdominal skin incision was made. Abdominal wall was cut layer by layer, until peritoneum was exposed and incised. Upon entering the abdominal cavity, bowels were packed away, upper abdomen was checked, was normal. There was a large uterus, which was incarcerated into the pelvic area. Both ovaries appeared to be normal. There was a large fibroid at the fundal area. There was a smaller fibroid at the posterior cervical area. Then, fundal area of the uterus was injected with vasopressin, and then, with a cautery, serosa was cauterized, and then, the capsule of myoma was entered and undermined, and fibroid was dissected bluntly and with cautery and Metzenbaum scissors, and fibroid was resected from the fundal part of the uterus. During the process, endometrium was entered. At this time, the endometrial cavity was repaired with 3-0 Vicryl continuous sutures, and then, uterine muscles were brought together with interrupted suture of 0 Vicryl in 2 layers. Then, serosa was repaired with baseball 2-0 Vicryl continuous suture. Then, most of the uterus was consistent with adenomyosis, and the cervical myoma was low into the cervical area, very difficult to access. Therefore, attempt was not made to remove the cervical fibroid. Chromotubation was done. Both tubes were patent. No other active bleeding was seen. Pelvic cavity was several times irrigated. All the lap pad, sponge, and instrument counts were correct. Peritoneum was closed with 0 Vicryl continuous suture. Muscles were brought together with interrupted suture of 0 Vicryl. Fascia was closed with 0 Vicryl continuous suture, subcutaneous fat with interrupted suture of 0 Vicryl, and the skin was closed with 4-0 Biosyn subcuticular continuous suture. Patient tolerated the procedure well, left the OR in good condition. Richard [id number]
--- NOTE | 2018-10-04 08:17 | PN ---
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
[2018-10-04] MEDS ORDERED: BISACODYL 5 MG TABLET.DR (FP) PO PRN (10:02)
[2018-10-04] MEDS ORDERED: oxyCODONE HCL 5 MG TABLET PO PRN (10:04)
[2018-10-04] MEDS ORDERED: ACETAMINOPHEN 325 MG TABLET (FP) PO PRN (10:08)
--- NOTE | 2018-10-04 10:11 | PN ---
Progress Note (short form) - Note Progress Note: POD 1 DOING WELL, HAS MILD LOW ABDOMINAL DISCOMFORT, PLAZA CLEAR URINE, NO ACTIVE VAGINAL BLEEDING CBC, BMP 10/04/18 06:30 10/04/18 06:30 Last Vital Signs Temp Pulse Resp BP Pulse Ox 99.4 F 95 H 18 119/70 98 10/04/18 06:00 10/04/18 09:58 10/04/18 09:58 10/04/18 09:58 10/04/18 09:00 ABDOMEN SOFT, NO DISTENSION, NO CVA MILD INCISIONAL TENDERNESS INCISION DRY, CLEAN NO CALF TENDERNESS , NO EDEMA IMPRESSION pod 1 AFEBRILE, DOING WELL PLAN AMBULATE, ADVANCE DIET, PAIN MANAGEMENT Problem List - Problems (1) Menometrorrhagia Code(s): N92.1 - EXCESSIVE AND FREQUENT MENSTRUATION WITH IRREGULAR CYCLE (2) Dysmenorrhea Code(s): N94.6 - DYSMENORRHEA, UNSPECIFIED (3) Intramural and submucous leiomyoma of uterus Code(s): D25.1 - INTRAMURAL LEIOMYOMA OF UTERUS; D25.0 - SUBMUCOUS LEIOMYOMA OF UTERUS (4) Infertility Code(s): [id number] -
--- NOTE | 2018-10-04 17:37 | PATH ---
Surgical Pathology Report Patient Name: JERSON BENTON Med. Rec. #: [id number] /Age/Gender: 1985 (Age: 33) / F Account: [id number] Location: [address] [place] [address]/[facility] Taken: 10/03/2018 Received: 10/03/2018 Reported: 10/04/2018 Physicians: Ayaan Yang M.D. Specimen(s) Received FIBROID Clinical History Fibroid uterus, excessive and frequent menstruation Final Diagnosis FIBROID, MYOMECTOMY: ADENOMYOSIS. Electronically Signed Anna Barnett M.D. Gross Description Received in formalin labeled "fibroid," is a 42 g aggregate of 2 goode-pink, irregular portions of tissue measuring 6.3 x 3.5 x 2.0 cm and 6.8 x 2.8 x 2.8 cm. Sectioning reveals goode-pink fibrous tissue. Hoop Maker Helper Machine sections are submitted in 5 cassettes as follows: 1-2-smaller portion of tissue; 3-5-larger portion of tissue. /10/03/2018 [facility]10/03/2018
[2018-10-04 18:30] LABS: URINE APPEARANCE CLEAR; URINE BILIRUBIN NEGATIVE (<2.0 mg/dL); URINE COLOR LTYELLOW; URINE GLUCOSE (UA) NEGATIVE (NEGATIVE); URINE KETONE NEGATIVE (NEGATIVE); URINE LEUK ESTERASE 3+ (NEGATIVE); URINE NITRITE NEGATIVE (NEGATIVE); URINE PROTEIN 1+ (NEGATIVE); URINE UROBILINOGEN NEGATIVE mg/dL (0.2-1.0)
[2018-10-04 18:31] LABS: EPI CELLS RARE /HPF (FEW); URINE MUCUS RARE
[2018-10-04] MEDS: ELECTROLYTE-148 SOLN 1,000 ML IV SCH (20:28)
[2018-10-05] MEDS: LACTATED RINGERS SOLUTION 1,000 ML IV SCH ×2 (02:55→14:31)
[2018-10-05] MEDS: ONDANSETRON 4 MG/2 ML VIAL IVPUSH PRN ×2 (03:59→15:55)
--- NOTE | 2018-10-05 09:18 | PN ---
Progress Note (short form) - Note Progress Note: ANESTHESIOLOGY POST-OP CHECK 33F s/p abdominal myomectomy under general anesthesia, POD #1. C/o dizziness and N/V. Pain 8/10 and tolerable. N/V alleviated with meds. 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 D/C'd yesterday Vital Signs Temperature 99.5 F 10/05/18 08:49 Pulse Rate 114 H 10/05/18 08:49 Respiratory Rate 20 10/05/18 08:49 Blood Pressure 132/82 10/05/18 08:49 O2 Sat by Pulse Oximetry (%) 96 10/04/18 21:00 Active Medications Acetaminophen (Tylenol -) 650 mg PO Q6H PRN PRN Reason: PAIN LEVEL 1-5 Bisacodyl (Dulcolax -) 10 mg PO DAILY PRN PRN Reason: CONSTIPATION Dexamethasone Sodium Phosphate (Decadron Injection -) 4 mg IVPUSH ONCE PRN PRN Reason: NAUSEA AND/OR VOMITING Last Admin: 10/05/18 08:10 Dose: 4 mg Fentanyl (Sublimaze Injection -) 50 mcg IVPUSH [id number] PRN PRN Reason: PAIN-PACU ORDER X 4 DOSES ONLY Lactated Ringer's (Lactated Ringers Solution) 1,000 mls @ 75 mls/hr IV [facility] Last Admin: 10/05/18 02:55 Dose: 75 mls/hr Parenteral Electrolytes (Plasma-Lyte 148 -) 1,000 mls @ 125 mls/hr IV [facility] Last Admin: 10/04/18 20:28 Dose: Not Given Ibuprofen (Motrin -) 600 mg PO Q6H PRN PRN Reason: FEVER Last Admin: 10/04/18 20:27 Dose: 600 mg Ibuprofen (Caldolor Injection -) 800 mg IVPB Q6H PRN PRN Reason: Fever - If PO not effective. Ondansetron HCl (Zofran Injection) 4 mg IVPUSH Q4H PRN PRN Reason: NAUSEA AND/OR VOMITING Last Admin: 10/05/18 03:59 Dose: 4 mg Ondansetron HCl (Zofran Injection) 4 mg IVPUSH Q6H PRN PRN Reason: NAUSEA Oxycodone HCl (Roxicodone -) 5 mg PO Q4H PRN PRN Reason: PAIN LEVEL 1-5 Last Admin: 10/03/18 21:18 Dose: 5 mg Oxycodone HCl (Roxicodone -) 10 mg PO Q6H PRN PRN Reason: PAIN LEVEL 6-10 Promethazine HCl (Phenergan Injection -) 12.5 mg IVPUSH Q6H PRN PRN Reason: NAUSEA-FOR RESCUE AFTER 15 MIN Last Admin: 10/05/18 04:46 Dose: 12.5 mg Promethazine HCl (Phenergan Injection -) 12.5 mg IVPB Q6H PRN PRN Reason: NAUSEA AND/OR VOMITING Last Admin: 10/04/18 03:32 Dose: 12.5 mg Simethicone (Mylicon -) 80 mg PO Q4H PRN PRN Reason: GAS Gen: Awake, alert, NAD No apparent anesthesia complications. 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
[2018-10-05] MEDS: ELECTROLYTE-148 SOLN 1,000 ML IV SCH (14:32)
[2018-10-05] MEDS: DEXTROSE 5%-LACTATED RINGERS 1,000 ML IV SCH (15:36)
[2018-10-05] MEDS: PANTOPRAZOLE SODIUM 80 MG in SODIUM CHLORIDE 100 ML IVPB SCH (15:59)
[2018-10-05 16:32] LABS: BASO % 0.3 % (0-2.0); HEMATOCRIT 26.4 % (32.4-45.2); HEMOGLOBIN 8.9 GM/dL (10.7-15.3); LYMPH % 3.8 % (8-40); MCH 26.8 pg (25.7-33.7); MCHC 33.9 g/dl (32.0-36.0); MEAN CELL VOLUME 78.9 fl (80-96); MEAN PLT VOLUME 9.2 fl (7.5-11.1); MONO % 3.3 % (3.8-10.2); NEUT % 92.6 % (42.8-82.8); PLATELET COUNT 358 K/MM3 (134-434); RBC 3.34 M/mm3 (3.60-5.2); RDW 14.2 % (11.6-15.6); WHITE BLOOD COUNT 18.9 K/mm3 (4.0-10.0)
[2018-10-05 16:53] LABS: ALBUMIN 2.8 g/dl (3.4-5.0); ALK PHOS 56 U/L (45-117); ANION GAP 8 MMOL/L (8-16); BILIRUBIN,TOTAL 0.3 mg/dL (0.2-1); BLOOD UREA NITROGEN 5 mg/dL (7-18); CALCIUM 8.7 mg/dL (8.5-10.1); CHLORIDE 104 mmol/L (98-107); CO2 25 mmol/L (21-32); CREATININE 0.6 mg/dL (0.55-1.3); GLUCOSE,RANDOM 101 mg/dL (74-106); SGOT/AST 65 U/L (15-37); SGPT/ALT 18 U/L (13-61); SODIUM 138 mmol/L (136-145); TOT PROT 6.6 g/dl (6.4-8.2)
[2018-10-05 17:02] LABS: ANISOCYTOSIS 2+; MACROCYTOSIS 2+; OVALOCYTE 1+
[2018-10-05 17:03] LABS: PLATELET ESTIMATE ADEQUATE
[2018-10-05] MEDS: CLINDAMYCIN 900 MG PREMIX IVPB 900 MG/50 ML BAG IVPB SCH (18:20)
--- NOTE | 2018-10-05 18:23 | PN ---
Progress Note (short form) - Note Progress Note: was doing well ,till this afternoon ,has nausea , vomited twice, no diarrhea, passing small amount of gas CBC, BMP 10/05/18 15:45 10/05/18 15:45 Last Vital Signs Temp Pulse Resp BP Pulse Ox 99.5 F 114 H 20 132/82 96 10/05/18 08:49 10/05/18 08:49 10/05/18 08:49 10/05/18 08:49 10/05/18 09:00 abdomen soft, no distension, no rebound or guarding BS present no vaginal bleeding, no calf tenderness impression low grade temp, elevated wbc , tachy cardia, r/o infection inview of extensive myomectomy , will start on iv antibiotics after blood culture done nauesa , possible related to narcotic, post anesthesia , gastritis will give zofran, protonix observation, iv hydration Problem List - Problems (1) Menometrorrhagia Code(s): N92.1 - EXCESSIVE AND FREQUENT MENSTRUATION WITH IRREGULAR CYCLE (2) Dysmenorrhea Code(s): N94.6 - DYSMENORRHEA, UNSPECIFIED (3) Intramural and submucous leiomyoma of uterus Code(s): D25.1 - INTRAMURAL LEIOMYOMA OF UTERUS; D25.0 - SUBMUCOUS LEIOMYOMA OF UTERUS (4) Infertility Code(s): [id number] -
[2018-10-05] MEDS ORDERED: PT OWN MED DRAWER 7, Y5N ONE (18:49)
[2018-10-05] MEDS: GENTAMICIN 80 MG PREMIXED IVPB 80 MG/100 ML BAG IVPB SCH (18:52)
[2018-10-05] MEDS: PROMETHAZINE HCL 25 MG/1 ML VIAL IVPB PRN (23:52)
[2018-10-06] MEDS ORDERED: PT OWN MED DRAWER 7, Y5N ONE ×4 (01:03→18:13)
[2018-10-06] MEDS: GENTAMICIN 80 MG PREMIXED IVPB 80 MG/100 ML BAG IVPB SCH ×3 (01:10→18:32)
[2018-10-06] MEDS: CLINDAMYCIN 900 MG PREMIX IVPB 900 MG/50 ML BAG IVPB SCH ×3 (01:11→18:22)
[2018-10-06] MEDS: PANTOPRAZOLE SODIUM 80 MG in SODIUM CHLORIDE 100 ML IVPB SCH ×4 (01:15→13:25)
[2018-10-06] MEDS: DEXTROSE 5%-LACTATED RINGERS 1,000 ML IV SCH ×3 (08:18→16:22)
[2018-10-06 08:22] LABS: BASO % 0.4 % (0-2.0); EOS % 0.1 % (0-4.5); HEMATOCRIT 27.9 % (32.4-45.2); HEMOGLOBIN 8.9 GM/dL (10.7-15.3); LYMPH % 6.2 % (8-40); MCH 25.1 pg (25.7-33.7); MCHC 31.8 g/dl (32.0-36.0); MEAN PLT VOLUME 8.5 fl (7.5-11.1); MONO % 8.8 % (3.8-10.2); NEUT % 84.5 % (42.8-82.8); PLATELET COUNT 353 K/MM3 (134-434); RBC 3.53 M/mm3 (3.60-5.2); RDW 14.1 % (11.6-15.6); WHITE BLOOD COUNT 15.4 K/mm3 (4.0-10.0)
[2018-10-06 09:08] LABS: ANION GAP 9 MMOL/L (8-16); BLOOD UREA NITROGEN 7 mg/dL (7-18); CALCIUM 8.8 mg/dL (8.5-10.1); CHLORIDE 103 mmol/L (98-107); CO2 26 mmol/L (21-32); CREATININE 0.6 mg/dL (0.55-1.3); GLUCOSE,RANDOM 109 mg/dL (74-106); SODIUM 138 mmol/L (136-145)
[2018-10-06] MEDS: SIMETHICONE 80 MG TAB.CHEW (FP) PO PRN ×2 (09:39→15:02)
[2018-10-06] MEDS: ONDANSETRON 4 MG/2 ML VIAL IVPUSH PRN (09:39)
--- NOTE | 2018-10-06 10:46 | PN ---
Progress Note (short form) - Note Progress Note: pod 3 , still has nausea , but better than yesterday, one vomited twice last night , has no pain, afebrile, does not appear toxic CBC, BMP 10/06/18 07:30 10/06/18 07:30 Last Vital Signs Temp Pulse Resp BP Pulse Ox 99.2 F 91 H 20 130/78 98 10/06/18 08:54 10/06/18 08:54 10/06/18 08:54 10/06/18 08:54 10/05/18 21:00 abdomen soft, no distension, non tender , mild incisional tenderness incision dry, clean no vaginal; bleeding or discharge urine 10,000 colony count impression , today doing better , WBC decreased , afebrile plan cont iv antibiotics , antiemetic meds , iv hydration revaluate , Problem List - Problems (1) Menometrorrhagia Code(s): N92.1 - EXCESSIVE AND FREQUENT MENSTRUATION WITH IRREGULAR CYCLE (2) Dysmenorrhea Code(s): N94.6 - DYSMENORRHEA, UNSPECIFIED (3) Intramural and submucous leiomyoma of uterus Code(s): D25.1 - INTRAMURAL LEIOMYOMA OF UTERUS; D25.0 - SUBMUCOUS LEIOMYOMA OF UTERUS (4) Infertility Code(s): [id number] -
[2018-10-06] MEDS ORDERED: BISACODYL 10 MG SUPP.RECT RC PRN (14:10)
[2018-10-06] MEDS: ONDANSETRON 4 MG/2 ML VIAL IVPB PRN (16:22)
[2018-10-06] MEDS: LACTATED RINGERS SOLUTION 1,000 ML IV SCH (16:24)
[2018-10-06] MEDS: ELECTROLYTE-148 SOLN 1,000 ML IV SCH (16:25)
--- NOTE | 2018-10-06 17:29 | CON.GI ---
Consult Consult Specialty:: GI: For Dr. Vinson who resumes coverage 10/07 Referred by:: Dr. Arriola Reason for Consultation:: nausea / vomiting - History of Present Illness Chief Complaint: Nausea / vomiting History of Present Illness: 33F w/ h/o menorrhagia who underwent fibroidectomy Wednesday 10/03, now with persistent nausea and vomiting over the last 2 days. AXR today questioned possible small bowel obstruction vs. ileus. She was using BUSINESS ASSISTANT pump post op. She denies any GI symptomatology prior to procedure. She has not had a bowel movement since admission. She denies melena, rectal bleeding, change in bowel habits prior to admission. She was given suppository laxative without result today. - History Source History Provided By: Patient, Family Member (mother present at bedside) - Past Medical History Reproductive: Yes: Fibroids (with menorrhagia) ...LMP: 09/26/18 ...: No Heme/Onc: Yes: Anemia - Past Surgical History Additional Surgical History: Liposuction, breast augmentation, fibroidectomy - Alcohol/Substance Use Hx Alcohol Use: Yes (occasional) History of Substance Use: reports: None - Smoking History Smoking history: Current every day smoker Have you smoked in the past 12 months: Yes Aproximately how many cigarettes per day: 5 - Social History Usual Living Arrangement: With Parent Occupation: Works for [employer] of : [employer] [employer] History of Recent Travel: No Home Medications - Allergies Allergies/Adverse Reactions: Allergies Allergy/AdvReac Type Severity Reaction Status Date / Time latex Allergy Mild "itchy and Verified 10/03/18 08:43 hives" No Known Drug Allergies Allergy Verified 10/03/18 08:43 SEAFOOD Allergy Mild "airway Uncoded 10/03/18 08:43 closes up" - Home Medications Home Medications: Ambulatory Orders Iron 18 mg PO BID 09/28/18 Naproxen Sodium [Aleve] 220 mg PO PRN PRN 09/28/18 Ibuprofen [Motrin -] 600 mg PO QID #28 tablet 10/04/18 Family Disease History - Family Disease History Family Disease History: Other: Father (Alive, healthy), Mother (Alive, HTN), Brother (1, healthy) Other Family History: No children, no family h/o colon cancer. Review of Systems - Review of Systems Constitutional: denies: Chills, Fever Cardiovascular: denies: Chest Pain Respiratory: denies: SOB Gastrointestinal: reports: Abdominal Pain, Nausea, Vomiting (bilious vomiting) Physical Exam-GI Vital Signs: Vital Signs Temperature 99.2 F 10/06/18 15:21 Pulse Rate 99 H 10/06/18 15:21 Respiratory Rate 20 10/06/18 15:21 Blood Pressure 139/83 10/06/18 15:21 O2 Sat by Pulse Oximetry (%) 98 10/06/18 09:00 Constitutional: Yes: Calm Eyes: No: Sclera Icterus Cardiovascular: Yes: Tachycardia. No: Murmur Respiratory: Yes: CTA Bilaterally Gastrointestinal Inspection: Yes: Distention (midly protuberant), Scars (fresh horizontal surgical scar in pelvis. mild TTP. no discharge or induration), Other (decorative umbilical ring scar) ...Auscultate: Yes: Hypoactive Bowel Sounds ...Palpate: Yes: Tenderness (TTP mid, upper abdomen) ...Percussion: Yes: Tympanitic (mild tympany, mid abdomen) Edema: No (No LE edema) Neurological: Yes: Alert, Oriented Labs: CBC, BMP 10/06/18 07:30 10/06/18 07:30 Hepatic Panel Total Bilirubin 0.3 mg/dL (0.2-1) 10/05/18 15:45 AST 65 U/L (15-37) H 10/05/18 15:45 ALT 18 U/L (13-61) 10/05/18 15:45 Alkaline Phosphatase 56 U/L (45-117) 10/05/18 15:45 Albumin 2.8 g/dl (3.4-5.0) L 10/05/18 15:45 Problem List - Problems (1) Vomiting Assessment/Plan: Bilious vomiting post op: post op / opiod induced ileus vs. SBO: 18Fr. Ross sump NGT placed at bedside through right nare. While placing, copious bilious vomiting occurred. Air chin auscualated in LUQ and NGT tethered to the nose at 50cm guilherme. It was left on med wall suction. Patient tolerated procedure well. Advise: CXR ordered to confirm NGT position NGT to low wall suction CT scan of the abdomen/pelvis Consider surgical evaluation Avoid opiate analgesia Discussed Case with Dr. Arriola Code(s): R11.10 - VOMITING, UNSPECIFIED
[2018-10-06] MEDS: DEXTROSE 5%-0.45% SALINE 1,000 ML IV SCH (19:18)
[2018-10-07] MEDS: GENTAMICIN 80 MG PREMIXED IVPB 80 MG/100 ML BAG IVPB SCH (01:40)
[2018-10-07] MEDS: CLINDAMYCIN 900 MG PREMIX IVPB 900 MG/50 ML BAG IVPB SCH (01:40)
[2018-10-07 07:53] LABS: BASO % 0.3 % (0-2.0); EOS % 1.5 % (0-4.5); HEMOGLOBIN 8.7 GM/dL (10.7-15.3); LYMPH % 12.3 % (8-40); MCH 25.7 pg (25.7-33.7); MCHC 32.4 g/dl (32.0-36.0); MEAN CELL VOLUME 79.2 fl (80-96); MEAN PLT VOLUME 8.2 fl (7.5-11.1); MONO % 11.5 % (3.8-10.2); NEUT % 74.4 % (42.8-82.8); PLATELET COUNT 381 K/MM3 (134-434); RBC 3.41 M/mm3 (3.60-5.2); RDW 14.5 % (11.6-15.6); WHITE BLOOD COUNT 8.4 K/mm3 (4.0-10.0)
[2018-10-07 08:23] LABS: ALBUMIN 2.6 g/dl (3.4-5.0); ALK PHOS 47 U/L (45-117); ANION GAP 8 MMOL/L (8-16); BILIRUBIN,TOTAL 0.5 mg/dL (0.2-1); BLOOD UREA NITROGEN 5 mg/dL (7-18); CALCIUM 8.6 mg/dL (8.5-10.1); CHLORIDE 103 mmol/L (98-107); CO2 26 mmol/L (21-32); CREATININE 0.6 mg/dL (0.55-1.3); GLUCOSE,RANDOM 115 mg/dL (74-106); POTASSIUM 3.6 mmol/L (3.5-5.1); SGOT/AST 26 U/L (15-37); SGPT/ALT 16 U/L (13-61); SODIUM 137 mmol/L (136-145); TOT PROT 6.5 g/dl (6.4-8.2)
--- NOTE | 2018-10-07 16:06 | PN ---
GI Progress Note Subjective: GI Note: CT scan reveals significant small bowel distension and Blanca tells me that she vomited up a large amount of the CT contrast. There is no transition point until the cecum so cannot distinguish between SBO and ileus. She had a very small amount of stool pass last night but none today. She does not want to eat as she is afraid she will vomit again - Objective Vital Signs: Vital Signs Temperature 98.4 F 10/07/18 06:00 Pulse Rate 87 10/07/18 06:00 Respiratory Rate 18 10/07/18 06:00 Blood Pressure 134/81 10/07/18 06:00 O2 Sat by Pulse Oximetry (%) 98 10/07/18 09:00 Laboratory Tests 10/07/18 07:15 WBC 8.4 Hgb 8.7 L Constitutional: No Distress Gastrointestinal Inspection: Yes: Distention ...Auscultate: Yes: Hypoactive Bowel Sounds ...Palpate: Yes: Soft, Other (perincisional tenderness ( as would be expected)) Labs: CBC, BMP 10/07/18 07:15 10/07/18 07:15 Problem List - Problems (1) Ileus following gastrointestinal surgery Assessment/Plan: Suspect ileus rather than SBO so will leave NG clamped overnight. Encouraged patient to ambulate as much as she can. Code(s): K91.30 - POSTPROC INTESTINAL OBST, UNSP TO PARTIAL VERSUS COMPLETE (2) Small bowel obstruction Code(s): K56.609 - UNSP INTESTNL OBST, UNSP TO PARTIAL VERSUS COMPLETE OBST (3) Vomiting Code(s): R11.10 - VOMITING, UNSPECIFIED (4) Abdominal pain in female patient Code(s): R10.9 - UNSPECIFIED ABDOMINAL PAIN
--- NOTE | 2018-10-07 21:46 | PN ---
Progress Note (SOAP) - Subjective History of Present Illness: Patient without complaints. NG tube in place, now clamped. Last emesis was after PO contrast. Reports passing flatus, no recent BM. Had 3 cups of water within the past hour. Scant VB. Good pain control - Current Medications Current Medications: Active Medications Acetaminophen (Tylenol -) 650 mg PO Q6H PRN PRN Reason: PAIN LEVEL 1-5 Bisacodyl (Dulcolax -) 10 mg PO DAILY PRN PRN Reason: CONSTIPATION Last Admin: 10/06/18 11:04 Dose: 10 mg Bisacodyl (Dulcolax Suppository -) 10 mg RC PRN PRN PRN Reason: CONSTIPATION Last Admin: 10/06/18 15:02 Dose: 10 mg Dexamethasone Sodium Phosphate (Decadron Injection -) 4 mg IVPUSH ONCE PRN PRN Reason: NAUSEA AND/OR VOMITING Last Admin: 10/05/18 08:10 Dose: 4 mg Dextrose/Sodium Chloride (D5-1/2ns -) 1,000 mls @ 125 mls/hr IV ASDIR SHERICE Last Admin: 10/06/18 19:18 Dose: 125 mls/hr Ibuprofen (Motrin -) 600 mg PO Q6H PRN PRN Reason: FEVER Last Admin: 10/04/18 20:27 Dose: 600 mg Ibuprofen (Caldolor Injection -) 800 mg IVPB Q6H PRN PRN Reason: Fever - If PO not effective. Ondansetron HCl (Zofran Injection) 8 mg IVPB Q6H PRN PRN Reason: NAUSEA Last Admin: 10/06/18 16:22 Dose: 8 mg Simethicone (Mylicon -) 80 mg PO Q4H PRN PRN Reason: GAS Last Admin: 10/06/18 15:02 Dose: 80 mg - Objective Vital Signs: Vital Signs Temperature 98.6 F 10/07/18 20:45 Pulse Rate 89 10/07/18 20:45 Respiratory Rate 19 10/07/18 20:45 Blood Pressure 117/81 10/07/18 20:45 O2 Sat by Pulse Oximetry (%) 98 10/07/18 09:00 Constitutional: Yes: No Distress, Calm HENT: Yes: WNL Neck: Yes: WNL Cardiovascular: Yes: Regular Rate and Rhythm Respiratory: Yes: Regular, CTA Bilaterally Gastrointestinal: Yes: Soft, Hypoactive Bowel Sounds Musculoskeletal: Yes: WNL Extremities: Yes: WNL Peripheral Pulses WNL: No Edema: No Wound/Incision: Yes: Clean/Dry, Well Approximated, Sutures Intact Neurological: Yes: Alert, Oriented ...Motor Strength: Yes: WNL Psychiatric: Yes: Alert, Oriented Labs Lab Results: CBC, BMP 10/07/18 07:15 10/07/18 07:15 Assessment/Plan 33 yo POD #4 s/p myomectomy, with postop ileus 1. Appreciate GI input, will continue to follow recommendations 2. Encouarged incentive spirometer 3. Adequate pain control 4. WBC improved, afebrile, on antibiotics 5. Encouraged ambulation 6. Will continue to monitor
--- NOTE | 2018-10-08 07:50 | PN ---
Progress Note (SOAP) - Subjective History of Present Illness: No acute events overnight. NG tube in place, now clamped. good pain control BM this AM, tolerated water overnight Denies nausea or vomiting, reports diminished appetite. - Current Medications Current Medications: Active Medications Acetaminophen (Tylenol -) 650 mg PO Q6H PRN PRN Reason: PAIN LEVEL 1-5 Bisacodyl (Dulcolax -) 10 mg PO DAILY PRN PRN Reason: CONSTIPATION Last Admin: 10/06/18 11:04 Dose: 10 mg Bisacodyl (Dulcolax Suppository -) 10 mg RC PRN PRN PRN Reason: CONSTIPATION Last Admin: 10/06/18 15:02 Dose: 10 mg Dexamethasone Sodium Phosphate (Decadron Injection -) 4 mg IVPUSH ONCE PRN PRN Reason: NAUSEA AND/OR VOMITING Last Admin: 10/05/18 08:10 Dose: 4 mg Dextrose/Sodium Chloride (D5-1/2ns -) 1,000 mls @ 125 mls/hr IV ASDIR SHERICE Last Admin: 10/06/18 19:18 Dose: 125 mls/hr Ibuprofen (Motrin -) 600 mg PO Q6H PRN PRN Reason: FEVER Last Admin: 10/04/18 20:27 Dose: 600 mg Ibuprofen (Caldolor Injection -) 800 mg IVPB Q6H PRN PRN Reason: Fever - If PO not effective. Ondansetron HCl (Zofran Injection) 8 mg IVPB Q6H PRN PRN Reason: NAUSEA Last Admin: 10/06/18 16:22 Dose: 8 mg Simethicone (Mylicon -) 80 mg PO Q4H PRN PRN Reason: GAS Last Admin: 10/06/18 15:02 Dose: 80 mg - Objective Vital Signs: Vital Signs Temperature 98.7 F 10/08/18 05:39 Pulse Rate 80 10/08/18 05:39 Respiratory Rate 18 10/08/18 05:39 Blood Pressure 120/66 10/08/18 05:39 O2 Sat by Pulse Oximetry (%) 98 10/07/18 21:00 Constitutional: Yes: Well Nourished, No Distress, Calm Cardiovascular: Yes: Regular Rate and Rhythm Respiratory: Yes: Regular, CTA Bilaterally Gastrointestinal: Yes: Normal Bowel Sounds, Soft, Tenderness (mild incisional) Musculoskeletal: Yes: WNL Extremities: Yes: WNL Peripheral Pulses WNL: Yes Edema: No Wound/Incision: Yes: Clean/Dry, Well Approximated, Sutures Intact, Steri Strips Neurological: Yes: WNL ...Motor Strength: Yes: WNL Psychiatric: Yes: Alert, Oriented Labs Lab Results: CBC, BMP 10/07/18 07:15 10/07/18 07:15 Assessment/Plan 33 yo POD #5 s/p myomectomy, with postop ileus 1. Appreciate GI input, will continue to follow recommendations 2. No signs of postoperative infection, WBC trending downward, afebrile 3. Encouraged ambulation, incentive spirometer 4. Discharge planning pending return of normal GI function and adequate pain control.
--- NOTE | 2018-10-08 11:14 | PN ---
GI Progress Note Subjective: GI NOte: Was ambulating in hallway expressing that she feels much better and would like NG removed. No nausea or vomiting. Had another small BM last night . - Objective Vital Signs: Vital Signs Temperature 97.8 F 10/08/18 09:15 Pulse Rate 106 H 10/08/18 09:15 Respiratory Rate 18 10/08/18 09:15 Blood Pressure 130/80 10/08/18 09:15 O2 Sat by Pulse Oximetry (%) 98 10/08/18 09:15 Constitutional: Calm Gastrointestinal Inspection: Yes: Distention (less distended) ...Auscultate: Yes: Hypoactive Bowel Sounds (but better than yesterday,) ...Palpate: Yes: Soft, Other (nontender) Labs: CBC, BMP 10/07/18 07:15 10/07/18 07:15 Assessment/Plan Resolving ileus NG removed Trial of clear liquids Problem List - Problems (1) Ileus following gastrointestinal surgery Assessment/Plan: Resolving ileus rather than SBO. NG removed. Will try clear liquids. Encouraged patient to ambulate as much as she can. Code(s): K91.30 - POSTPROC INTESTINAL OBST, UNSP TO PARTIAL VERSUS COMPLETE (2) Small bowel obstruction Code(s): K56.609 - UNSP INTESTNL OBST, UNSP TO PARTIAL VERSUS COMPLETE OBST (3) Vomiting Code(s): R11.10 - VOMITING, UNSPECIFIED (4) Abdominal pain in female patient Code(s): R10.9 - UNSPECIFIED ABDOMINAL PAIN
[2018-10-09] MEDS: ONDANSETRON 4 MG/2 ML VIAL IVPB PRN (05:58)
[2018-10-09] MEDS: DEXTROSE 5%-0.45% SALINE 1,000 ML IV SCH ×2 (06:01→23:13)
[2018-10-09] MEDS: PANTOPRAZOLE 40 MG TABLET (FP) PO SCH (09:34)
[2018-10-09] MEDS ORDERED: METOCLOPRAMIDE HCL INJECTION 10 MG/2 ML VIAL IVPUSH PRN (17:30)
--- NOTE | 2018-10-09 17:38 | PN ---
GI Progress Note Subjective: GI NOte: Still feels bloated and afraid to yet but has not vomited and wants to try food from home. No BM today. FUA looks more like ileus than SBO today - Objective Vital Signs: Vital Signs Temperature 98.7 F 10/09/18 06:00 Pulse Rate 87 10/09/18 06:00 Respiratory Rate 18 10/09/18 06:00 Blood Pressure 114/84 10/09/18 06:00 O2 Sat by Pulse Oximetry (%) 98 10/08/18 21:00 Laboratory Tests 10/07/18 07:15 WBC 8.4 Hgb 8.7 L Hct 27.0 L Constitutional: Anxious Gastrointestinal Inspection: Yes: Distention (mild) ...Auscultate: Yes: Hypoactive Bowel Sounds ...Palpate: Yes: Soft, Other (nontender) Labs: CBC, BMP 10/07/18 07:15 10/07/18 07:15 Assessment/Plan Resolving ileus Encouraged to do clear liquids tonight Will give Miralax Reglan and try soft diet in the AM. If tolerated then can D/C Problem List - Problems (1) Ileus following gastrointestinal surgery Code(s): K91.30 - POSTPROC INTESTINAL OBST, UNSP TO PARTIAL VERSUS COMPLETE (2) Small bowel obstruction Code(s): K56.609 - UNSP INTESTNL OBST, UNSP TO PARTIAL VERSUS COMPLETE OBST (3) Vomiting Code(s): R11.10 - VOMITING, UNSPECIFIED (4) Abdominal pain in female patient Code(s): R10.9 - UNSPECIFIED ABDOMINAL PAIN
[2018-10-09] MEDS: POLYETHYLENE GLYCOL 3350 119 GM BTL PO SCH (21:31)
[2018-10-10] MEDS: POLYETHYLENE GLYCOL 3350 119 GM BTL PO SCH ×3 (05:55→21:33)
[2018-10-10] MEDS: PANTOPRAZOLE 40 MG TABLET (FP) PO SCH (10:09)
[2018-10-10] MEDS: DEXTROSE 5%-0.45% SALINE 1,000 ML IV SCH (10:09)
--- NOTE | 2018-10-10 10:23 | PN ---
GI Progress Note Subjective: GI NOte: Vomited this AM. NO BM. Did not attempt soft breakfast. Radiologist read the last FUA as cannot exclude partial SBO. Discussed the case with Dr Yang who will consult a general surgeon - Objective Vital Signs: Vital Signs Temperature 98.1 F 10/10/18 06:00 Pulse Rate 74 10/10/18 06:00 Respiratory Rate 20 10/10/18 06:00 Blood Pressure 112/64 10/10/18 06:00 O2 Sat by Pulse Oximetry (%) 96 10/09/18 21:00 CBC, BMP 10/07/18 07:15 10/07/18 07:15 Constitutional: Anxious Gastrointestinal Inspection: Yes: Distention (mild) ...Auscultate: Yes: Normoactive Bowel Sounds ...Palpate: Yes: Soft, Other (nontender) Labs: CBC, BMP 10/07/18 07:15 10/07/18 07:15 Assessment/Plan SBO vs ileus Repeat FUA Encouraged to try a soft diet Continue Miralax and Reglan General surgery consult Problem List - Problems (1) Ileus following gastrointestinal surgery Code(s): K91.30 - POSTPROC INTESTINAL OBST, UNSP TO PARTIAL VERSUS COMPLETE (2) Small bowel obstruction Code(s): K56.609 - UNSP INTESTNL OBST, UNSP TO PARTIAL VERSUS COMPLETE OBST (3) Vomiting Code(s): R11.10 - VOMITING, UNSPECIFIED (4) Abdominal pain in female patient Code(s): R10.9 - UNSPECIFIED ABDOMINAL PAIN
[2018-10-10 11:00] LABS: BASO % 0.6 % (0-2.0); EOS % 1.8 % (0-4.5); HEMATOCRIT 27.4 % (32.4-45.2); HEMOGLOBIN 9.4 GM/dL (10.7-15.3); LYMPH % 15.6 % (8-40); MCH 26.5 pg (25.7-33.7); MCHC 34.3 g/dl (32.0-36.0); MEAN CELL VOLUME 77.1 fl (80-96); MEAN PLT VOLUME 7.8 fl (7.5-11.1); MONO % 7.5 % (3.8-10.2); NEUT % 74.5 % (42.8-82.8); PLATELET COUNT 562 K/MM3 (134-434); RBC 3.55 M/mm3 (3.60-5.2); RDW 14.9 % (11.6-15.6); WHITE BLOOD COUNT 8.8 K/mm3 (4.0-10.0)
[2018-10-10 11:15] LABS: INR 1.16 (0.83-1.09); PROTHROMBIN TIME (PATIENT) 13.7 SEC (9.7-13.0)
[2018-10-10 11:29] LABS: ALK PHOS 76 U/L (45-117); ANION GAP 8 MMOL/L (8-16); BILIRUBIN,TOTAL 0.6 mg/dL (0.2-1); BLOOD UREA NITROGEN 5 mg/dL (7-18); CALCIUM 8.6 mg/dL (8.5-10.1); CHLORIDE 104 mmol/L (98-107); CO2 27 mmol/L (21-32); CREATININE 0.7 mg/dL (0.55-1.3); GLUCOSE,RANDOM 106 mg/dL (74-106); POTASSIUM 3.9 mmol/L (3.5-5.1); SGOT/AST 53 U/L (15-37); SGPT/ALT 67 U/L (13-61); SODIUM 139 mmol/L (136-145)
--- NOTE | 2018-10-10 12:49 | PN ---
Progress Note (short form) - Note Progress Note: pod 7 s/p abdominal myomectomy , post op illeus , r/o partial small bowel obstruction passed gas yesterday, not passing today, has no appetite Last Vital Signs Temp Pulse Resp BP Pulse Ox 98.1 F 74 20 112/64 96 10/10/18 06:00 10/10/18 06:00 10/10/18 06:00 10/10/18 06:00 10/09/18 21:00 Last Vital Signs Temp Pulse Resp BP Pulse Ox 98.1 F 74 20 112/64 96 10/10/18 06:00 10/10/18 06:00 10/10/18 06:00 10/10/18 06:00 10/09/18 21:00 CBC, BMP 10/10/18 10:50 10/10/18 10:50 abdomen soft, mild distension, no rebound or guarding , BS hypoactive incision dry.clean, healing well, no vaginal bleeding or discharge no calf tenderness pod 7 , r/o partial small bowel obstruction, , gi consult appritated will ask for surgical consult cont ambulation Problem List - Problems (1) Menometrorrhagia Code(s): N92.1 - EXCESSIVE AND FREQUENT MENSTRUATION WITH IRREGULAR CYCLE (2) Dysmenorrhea Code(s): N94.6 - DYSMENORRHEA, UNSPECIFIED (3) Intramural and submucous leiomyoma of uterus Code(s): D25.1 - INTRAMURAL LEIOMYOMA OF UTERUS; D25.0 - SUBMUCOUS LEIOMYOMA OF UTERUS (4) Infertility Code(s): [id number] -
[2018-10-10] MEDS: ONDANSETRON 4 MG/2 ML VIAL IVPB PRN (14:16)
[2018-10-11] MEDS: POLYETHYLENE GLYCOL 3350 119 GM BTL PO SCH ×4 (06:23→21:33)
--- NOTE | 2018-10-11 10:42 | PN ---
GI Progress Note Subjective: GI NOte: When I came up to see Blanca she was attempting some soft food that her mother brought in. NO vomiting overnight and she did finally have a good BM. I told her however that he FUA looks like mechanical SBO today. Surgical consultation is pending - Objective Vital Signs: Vital Signs Temperature 98.4 F 10/10/18 20:28 Pulse Rate 77 10/10/18 20:28 Respiratory Rate 20 10/10/18 20:28 Blood Pressure 135/79 10/10/18 20:28 O2 Sat by Pulse Oximetry (%) 96 10/10/18 21:00 Laboratory Tests 10/05/18 10/07/18 10/10/18 15:45 07:15 10:50 WBC 8.8 Hgb 9.4 L Potassium Total Bilirubin AST 65 H 26 ALT 18 16 Alkaline Phosphatase 56 C-Reactive Protein 10/10/18 10/11/18 10:50 07:30 WBC Hgb Potassium 3.9 Total Bilirubin 0.6 AST 53 H ALT 67 H Alkaline Phosphatase 76 C-Reactive Protein 1.5 H Constitutional: Calm ...Auscultate: Yes: Hyperactive Bowel Sounds ...Palpate: Yes: Soft, Other (nontender) Labs: CBC, BMP 10/10/18 10:50 10/10/18 10:50 INR, PTT INR 1.16 (0.83-1.09) H 10/10/18 10:50 Assessment/Plan Partial SBO Repeat FUA in AM Await general surgery consult Reinsert NG is vomiting ensues Problem List - Problems (1) Ileus following gastrointestinal surgery Assessment/Plan: FUA and bowel sounds are consistent with partial SBO. Await surgical consultation. If vomiting ensues will have NG reinserted. Code(s): K91.30 - POSTPROC INTESTINAL OBST, UNSP TO PARTIAL VERSUS COMPLETE (2) Small bowel obstruction Code(s): K56.609 - UNSP INTESTNL OBST, UNSP TO PARTIAL VERSUS COMPLETE OBST (3) Vomiting Code(s): R11.10 - VOMITING, UNSPECIFIED (4) Abdominal pain in female patient Code(s): R10.9 - UNSPECIFIED ABDOMINAL PAIN
[2018-10-11] MEDS: PANTOPRAZOLE 40 MG TABLET (FP) PO SCH (10:48)
--- NOTE | 2018-10-11 11:55 | PN ---
Progress Note (short form) - Note Progress Note: states had BM last night , tolerated diet , no n/v this am CBC, BMP 10/10/18 10:50 10/10/18 10:50 Last Vital Signs Temp Pulse Resp BP Pulse Ox 98.4 F 77 20 135/79 96 10/10/18 20:28 10/10/18 20:28 10/10/18 20:28 10/10/18 20:28 10/10/18 21:00 abdomen soft, mild distension , tympanic , no rebound incision dry clean FUA , possible partial SBO plan surgical consult ambulate . Problem List - Problems (1) Menometrorrhagia Code(s): N92.1 - EXCESSIVE AND FREQUENT MENSTRUATION WITH IRREGULAR CYCLE (2) Dysmenorrhea Code(s): N94.6 - DYSMENORRHEA, UNSPECIFIED (3) Intramural and submucous leiomyoma of uterus Code(s): D25.1 - INTRAMURAL LEIOMYOMA OF UTERUS; D25.0 - SUBMUCOUS LEIOMYOMA OF UTERUS (4) Infertility Code(s): [id number] -
[2018-10-11] MEDS: DEXTROSE 5%-0.45% SALINE 1,000 ML IV SCH ×2 (18:34→21:33)
[2018-10-12] MEDS: POLYETHYLENE GLYCOL 3350 119 GM BTL PO SCH ×3 (06:24→21:16)
[2018-10-12] MEDS: PANTOPRAZOLE 40 MG TABLET (FP) PO SCH (09:17)
[2018-10-12] MEDS: DEXTROSE 5%-0.45% SALINE 1,000 ML IV SCH (09:17)
--- NOTE | 2018-10-12 09:50 | CONSULT ---
Consult Consult Specialty:: Surgery Reason for Consultation:: Ileus versus bowel obstruction s/p myomectomy - History of Present Illness History of Present Illness: 33 female s/p myomectomy 10/03/18 Developed nausea/vomiting afterwards Multiple AXRs and a CT A/P demonstrated ileus versus small bowel obstruction; no transition point Given laxatives Treated with NG tube- removed previously Seen by GI Had several BMs yesterday/today Tolerated some diet Currently minimal pain No further nausea/vomiting - History Source History Provided By: Patient Limitations to Obtaining History: No Limitations - Past Medical History ...LMP: 09/26/18 ...: No - Past Surgical History Additional Surgical History: Liposuction, breast augmentation, fibroidectomy . Myomectomy 10/03/18 - Alcohol/Substance Use Hx Alcohol Use: Yes (occasional) History of Substance Use: reports: None - Smoking History Smoking history: Current every day smoker Have you smoked in the past 12 months: Yes Aproximately how many cigarettes per day: 5 - Social History Usual Living Arrangement: With Parent Occupation: Works for [employer] History of Recent Travel: No Home Medications - Allergies Allergies/Adverse Reactions: Allergies Allergy/AdvReac Type Severity Reaction Status Date / Time latex Allergy Mild "itchy and Verified 10/03/18 08:43 hives" No Known Drug Allergies Allergy Verified 10/03/18 08:43 SEAFOOD Allergy Mild "airway Uncoded 10/03/18 08:43 closes up" - Home Medications Home Medications: Ambulatory Orders Iron 18 mg PO BID 09/28/18 Naproxen Sodium [Aleve] 220 mg PO PRN PRN 09/28/18 Ibuprofen [Motrin -] 600 mg PO QID #28 tablet 10/04/18 Family Disease History - Family Disease History Family Disease History: Other: Father (Alive, healthy), Mother (Alive, HTN), Brother (1, healthy) Other Family History: No children, no family h/o colon cancer. Review of Systems - Review of Systems Constitutional: denies: Chills, Fever Neck: reports: No Symptoms Cardiovascular: reports: No Symptoms Respiratory: reports: No Symptoms Gastrointestinal: reports: Constipation, Nausea, Vomiting. denies: Abdominal Pain Neurological: reports: No Symptoms Pain Intensity: 2 Physical Exam Vital Signs: Vital Signs Temperature 98.3 F 10/12/18 06:31 Pulse Rate 72 10/12/18 06:31 Respiratory Rate 20 10/12/18 06:31 Blood Pressure 109/62 10/12/18 06:31 O2 Sat by Pulse Oximetry (%) 97 10/11/18 21:00 Constitutional: Yes: Calm HENT: Yes: WNL Neck: Yes: WNL Cardiovascular: Yes: Regular Rate and Rhythm Respiratory: Yes: CTA Bilaterally Gastrointestinal: Yes: Soft. No: Distention, Tenderness, Tenderness, Rebound Neurological: Yes: Alert, Oriented Labs: CBC, BMP 10/10/18 10:50 10/10/18 10:50 Imaging - Results X-ray: Report Reviewed, Image Reviewed Cat Scan: Report Reviewed, Image Reviewed Problem List - Problems (1) Ileus following gastrointestinal surgery Code(s): K91.30 - POSTPROC INTESTINAL OBST, UNSP TO PARTIAL VERSUS COMPLETE (2) Small bowel obstruction Code(s): K56.609 - UNSP INTESTNL OBST, UNSP TO PARTIAL VERSUS COMPLETE OBST Assessment/Plan Ileus versus small bowel obstruction s/p myomectomy 10/03/18 Tolerating some diet PO Had several BMs Continue soft diet Consider enema Serial abdominal exams If continues to tolerate diet, can discharge home Follow up in office If develops recurrent nausea/vomiting/bloating, would repeat CT A/P with PO gastrograffin [phone]
--- NOTE | 2018-10-12 12:27 | PN ---
GI Progress Note Subjective: For Dr. Vinson No acute events No abdominal pain States feeling well Had BM yesterday - Objective Vital Signs: Vital Signs Temperature 98.3 F 10/12/18 06:31 Pulse Rate 72 10/12/18 06:31 Respiratory Rate 20 10/12/18 06:31 Blood Pressure 109/62 10/12/18 06:31 O2 Sat by Pulse Oximetry (%) 95 10/12/18 09:00 Constitutional: Calm Eyes: No: Sclera Icterus Cardiovascular: Yes: Regular Rate and Rhythm Respiratory: Yes: CTA Bilaterally Gastrointestinal Inspection: No: Distention ...Auscultate: Yes: Normoactive Bowel Sounds ...Palpate: Yes: Soft. No: Tenderness ...Percussion: Yes: Tympanitic (Improved from previous exams) Edema: No (No LE edema) Labs: CBC, BMP 10/10/18 10:50 10/10/18 10:50 INR, PTT INR 1.16 (0.83-1.09) H 10/10/18 10:50 Problem List - Problems (1) Vomiting Assessment/Plan: Seen by surgery Clinically much improved: ? prolonged ileus vs. SBO secondary to inflammatory changes following myomectomy. On diet now. If unable to tolerate, NPO, IV hydration, surgical follow-up Code(s): R11.10 - VOMITING, UNSPECIFIED
--- NOTE | 2018-10-12 17:50 | PN ---
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, feeling well, tolerating diet CBC, BMP 10/10/18 10:50 10/10/18 10:50 Last Vital Signs Temp Pulse Resp BP Pulse Ox 98.3 F 72 20 109/62 95 10/12/18 06:31 10/12/18 06:31 10/12/18 06:31 10/12/18 06:31 10/12/18 09:00 abdomen soft, no distension, BS present incision dry, healing well impression had bm, passing gas plan regular diet, if tolorate regular diet , d/c home in am Problem List - Problems (1) Menometrorrhagia Code(s): N92.1 - EXCESSIVE AND FREQUENT MENSTRUATION WITH IRREGULAR CYCLE (2) Dysmenorrhea Code(s): N94.6 - DYSMENORRHEA, UNSPECIFIED (3) Intramural and submucous leiomyoma of uterus Code(s): D25.1 - INTRAMURAL LEIOMYOMA OF UTERUS; D25.0 - SUBMUCOUS LEIOMYOMA OF UTERUS (4) Infertility Code(s): [id number] -
[2018-10-13] MEDS: POLYETHYLENE GLYCOL 3350 119 GM BTL PO SCH (06:09)
--- NOTE | 2018-10-13 07:59 | PN ---
Progress Note (short form) - Note Progress Note: no c/o passing gas , able to tolera regular diet, no N?V Last Vital Signs Temp Pulse Resp BP Pulse Ox 98.2 F 75 75 H CBC, BMP 10/10/18 10:50 10/10/18 10:50 CBC, BMP 10/10/18 10:50 10/10/18 10:50 ab 108/60 95 10/13/18 05:55 10/13/18 05:55 10/13/18 05:55 10/13/18 05:55 10/12/18 21:00 abdomen soft, no distension, no cva normal BS no calf pain no vaginal bleeding plan d/c home, with instruction, follow up office1 week Problem List - Problems (1) Menometrorrhagia Code(s): N92.1 - EXCESSIVE AND FREQUENT MENSTRUATION WITH IRREGULAR CYCLE (2) Dysmenorrhea Code(s): N94.6 - DYSMENORRHEA, UNSPECIFIED (3) Intramural and submucous leiomyoma of uterus Code(s): D25.1 - INTRAMURAL LEIOMYOMA OF UTERUS; D25.0 - SUBMUCOUS LEIOMYOMA OF UTERUS (4) Infertility Code(s): [id number] -
--- NOTE | 2018-10-13 08:02 | DS ---
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 Vital Signs: Vital Signs Temperature 98.2 F 10/13/18 05:55 Pulse Rate 75 10/13/18 05:55 Respiratory Rate 75 H 10/13/18 05:55 Blood Pressure 108/60 10/13/18 05:55 O2 Sat by Pulse Oximetry (%) 95 10/12/18 21:00 Constitutional: Yes: Well Nourished, No Distress, Calm Eyes: Yes: WNL, Conjunctiva Clear, EOM Intact HENT: Yes: WNL, Atraumatic, Normocephalic Neck: Yes: WNL, Supple, Trachea Midline Cardiovascular: Yes: WNL, Regular Rate and Rhythm Respiratory: Yes: WNL, Regular, CTA Bilaterally Gastrointestinal: Yes: WNL ...Rectal Exam: Yes: WNL Renal/: Yes: WNL Breast(s): Yes: WNL Musculoskeletal: Yes: WNL Extremities: Yes: WNL Edema: No Integumentary: Yes: WNL Wound/Incision: Yes: Clean/Dry, Well Approximated, Sutures Intact Neurological: Yes: WNL, Alert, Oriented ...Motor Strength: WNL Psychiatric: Yes: WNL, Alert, Oriented Labs: CBC, BMP 10/10/18 10:50 10/10/18 10:50 Discharge Summary Reason For Visit: FIBROIDS UTERUS, EXCESSIVE AND FREQUENT MENSTRUAL Current Active Problems Dysmenorrhea (Acute) Ileus following gastrointestinal surgery (Acute) Infertility (Acute) Intramural and submucous leiomyoma of uterus (Acute) Menometrorrhagia (Acute) Small bowel obstruction (Acute) Vomiting (Acute) Procedures: Principal: abdominal myomectomy Other Procedures: chromotubation Hospital Course: post op illius, possible partial bowel obstruction, resolved spontaneously Condition: Good - Instructions Diet, Activity, Other Instructions: regular diet , no intercourse , follow up office 2 weeks. if nausea, vomitting , call MD Referrals: Ayaan Yang MD [Staff Physician] - - Home Medications Comprehensive Discharge Medication List: Ambulatory Orders Iron 18 mg PO BID 09/28/18 Naproxen Sodium [Aleve] 220 mg PO PRN PRN 09/28/18 Ibuprofen [Motrin -] 600 mg PO QID #28 tablet 10/04/18
[2018-10-13 09:05] VITALS: BP 121/73; PULSE 82; TEMP 97.9
--- NOTE | 2018-10-13 09:51 | PN ---
Progress Note (short form) - Note Progress Note: 33yo F s/p open myomectomy with subsequent ileus vs partial sbo. Pt seen and examined at bedside. Pt state that abd pain has resolved, denies n/v, fever, chills. Pt tolerating PO soft diet. Pt had BM yesterday and passing flatus. Last Vital Signs Temp Pulse Resp BP Pulse Ox 97.9 F 82 96 H 121/73 98 10/13/18 09:04 10/13/18 09:04 10/13/18 09:04 10/13/18 09:04 10/13/18 08:56 CBC, BMP 10/10/18 10:50 10/10/18 10:50 PE: Gen: A&O x3 Resp: breathing comfortably Abd: soft, nontender, nondistended, incision is clean with no erythema or discharge. Ext: no edema <Nguyễn Powell - Last Filed: 10/13/18 09:46> - Note Progress Note: Agree Continue diet as tolerated Follow up in office in 1-2 weeks <Chetan Cisneros - Last Filed: 10/13/18 18:34> Problem List - Problems (1) Ileus following gastrointestinal surgery Assessment/Plan: Plan -pt appears to be doing well and ileus is resolved, is cleared from surgery for discharge. -please follow up with Dr. Cisneros as outpatient [phone] Please contact surgery team if any changes. Code(s): K91.30 - POSTPROC INTESTINAL OBST, UNSP TO PARTIAL VERSUS COMPLETE <Nguyễn Powell - Last Filed: 10/13/18 09:46> - Problems (1) Ileus following gastrointestinal surgery Code(s): K91.30 - POSTPROC INTESTINAL OBST, UNSP TO PARTIAL VERSUS COMPLETE (2) Small bowel obstruction Code(s): K56.609 - UNSP INTESTNL OBST, UNSP TO PARTIAL VERSUS COMPLETE OBST <Chetan Cisneros - Last Filed: 10/13/18 18:34>
[2018-10-13] MEDS: PANTOPRAZOLE 40 MG TABLET (FP) PO SCH (09:59)
== END 2018-10-13 14:25 | disposition home or self-care (01) | DRG 742 ==
LOC: JSAMEDAYSX 05:09 → J6S 15:40
PROVIDERS: ADMIT Obstetrics & Gynecology; ATTEND Obstetrics & Gynecology
PROC: 3E1P38Z Irrigation of Female Reproductive using Irrigating Substance, Percutaneous Approach (ICD-10-PCS; 2018-10-03)
PROC: 0UB90ZZ Excision of Uterus, Open Approach (ICD-10-PCS; principal; 2018-10-03 09:00)
DX: D25.9 Leiomyoma of uterus, unspecified (principal); K91.30 Postprocedural intestinal obstruction, unspecified as to partial versus complete; N92.1 Excessive and frequent menstruation with irregular cycle; D64.9 Anemia, unspecified; N97.9 Female infertility, unspecified; F17.210 Nicotine dependence, cigarettes, uncomplicated; N94.6 Dysmenorrhea, unspecified; D25.0 Submucous leiomyoma of uterus; Y83.8 Other surgical procedures as the cause of abnormal reaction of the patient, or of later complication, without mention of misadventure at the time of the procedure; R11.10 Vomiting, unspecified; R10.9 Unspecified abdominal pain
CPT/HCPCS: 36415; 71045-TC-FY; 74018-TC-FY; 74019-TC-FY; 74021-TC-FY; 74177-TC; 80048; 80053; 81003; 81015; 84703; 85025; 85027; 85610; 86140; 86850; 86900; 86901; 87081; 87086; 88305-TC; 94010; 94760

== ENCOUNTER 2018-11-03 09:21 | Emergency (ER) | payer BC ==
--- NOTE | 2018-11-03 09:53 | PDOC ---
History of Present Illness - General Stated Complaint: WEAKNESS, DIZZY Time Seen by Provider: 11/03/18 09:40 History Source: Patient Exam Limitations: No Limitations - History of Present Illness Initial Comments: 11/03/18 09:42 [id number] with h/o menometrorrhagia now s/p open myomectomy with subsequent ileus VS partial SBO (admitted in September here at [facility]) who p/w weakness, dizziness, malaise, decreased appetite, nausea, NBNB vomiting x2, watery diarrhea x2, and head-to-toe body aches worsening for the past ~5 days. 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 She has not eaten anything in the past 2 days, has not drank many fluids. Denies taking any medication for her symptoms this morning. Past History - Past Medical History Allergies/Adverse Reactions: Allergies Allergy/AdvReac Type Severity Reaction Status Date / Time latex Allergy Mild "itchy and Verified 11/03/18 09:45 hives" No Known Drug Allergies Allergy Verified 11/03/18 09:45 SEAFOOD Allergy Mild "airway Uncoded 11/03/18 09:45 closes up" Home Medications: Ambulatory Orders traMADol HCL [Ultram -] 50 mg PO BID PRN 4 Days #8 tablet MDD 2 tabs 11/03/18 Anemia: Yes Asthma: No Cancer: No Cardiac Disorders: No CVA: No COPD: No CHF: No Dementia: No Diabetes: No GI Disorders: No Disorders: No HTN: No Hypercholesterolemia: No Liver Disease: No Seizures: No Thyroid Disease: No - Reproductive History (#): 1 Para: 0 Cervical CA: No Dysfunctional Uterine Bleeding: No Ectopic : No Endometrial CA: No Polycystic Ovaries: No Therapeutic (s) & number: Yes Tubal Ligation: No Spontaneous : 0 - Immunization History Immunization Up to Date: Yes - Suicide/Smoking/Psychosocial Hx Smoking Status: Yes Smoking History: Current every day smoker Have you smoked in the past 12 months: Yes Number of Cigarettes Smoked Daily: 5 'Breaking Loose' booklet given: 09/28/18 Hx Alcohol Use: Yes (occasional) Drug/Substance Use Hx: No Substance Use Type: Alcohol Hx Substance Use Treatment: No Review of Systems - Review of Systems Able to Perform ROS?: Yes Comments:: 11/03/18 09:55 GEN: malaise, generalized weakness, no fever, chills, or weight change HEENT: no ear pain, sore throat, vision change, or eye pain CV: lightheadedness, no chest pain, palpitations, syncope, or edema RESP: no cough, wheezing, or SOB GI: no abdominal discomfort, nausea, vomiting, diarrhea, no constipation, or white/black/bloody stool : no dysuria, hematuria, incontinence, retention, or discharge MSK: no neck/back pain, muscle weakness/pain, or joint swelling/pain NEURO: no headache, seizure, vertigo, numbness, tingling, or focal weakness PSYCH: no substance use, no behavior change SKIN: no jaundice, no rash ROS otherwise negative except as noted in HPI *Physical Exam - Physical Exam Comments: 11/03/18 10:02 GENERAL: tired but nontoxic-appearing, normal skin color/no pallor, A/Ox4, no distress, answers questions appropriately HEENT: PERRLA, EOMI, moist mucous membranes NECK/BACK: no midline ttp, no spinal stepoff or deformity, no hematoma, full ROM , neck supple CARDIOVASCULAR: regular rate/rhythm, normal S1S2, no MGR, strong peripheral pulses, capillary refill <2 seconds, extremities wwp, no edema LUNGS/RESPIRATORY: no respiratory distress, CTAB GI/ABDOMEN: symmetric [id number], normoactive BS, soft, mild RLQ ttp, no peritoneal signs, no midline pulsatile masses : no CVA tenderness EXTREMITIES: no muscle atrophy, no acute deformity SKIN: LTCS scar healing very well CDI, skin otherwise warm and dry, no pallor, no jaundice, no rash, no bruising, no skin breakdown, no cuts, no lesions NEUROLOGICAL: GCS 15, CN II-XII grossly intact, 5/5 strength proximally and distally, no facial droop ED Treatment Course - LABORATORY CBC & Chemistry Diagram: 11/03/18 10:01 11/03/18 10:01 Medical Decision Making - Medical Decision Making Adult female Pt p/w RLQ pain. Initial Vital Signs Temp Pulse Resp BP Pulse Ox 97.5 F L 90 20 128/75 100 11/03/18 09:42 11/03/18 09:42 11/03/18 09:42 11/03/18 09:42 11/03/18 09:42 Exam: As noted in Physical Exam section. DDX IBNLT: influenza, viral syndrome, PNA, UTI/pyelonephritis, postop seroma vs abscess, renal colic, ovarian torsion, ovarian cyst/rupture, ectopic , PID, TOA, endometritis, salpingitis, oophoritis, Kdzn-Hend-Wxfhkv syndrome (if involving liver capsule ACS, AAA/AD, malignancy, hernia, cholecystitis, pancreatitis, gastritis, PUD, appendicitis, diverticulitis wwo abscess or perforation, colitis, regional ileitis (Crohns disease), SBO, bowel ischemia, bowel perforation, constipation, musculoskeletal, primary dysmenorrhea, endometriosis, fibroids, etc. W/U ordered: Labs as noted below TX ordered: IVF, Katerina Spoke with Dr. Yang to let him know the patient is in the ED. Will update him later with any abnormal results. Laboratory Tests 11/03/18 11/03/18 11/03/18 10:01 10:01 10:01 WBC 12.1 H RBC 4.17 Hgb 9.7 L Hct 29.7 L MCV 71.2 L MCH 23.4 L D MCHC 32.8 RDW 18.0 H Plt Count 366 D MPV 8.1 Absolute Neuts (auto) 10.4 H Neutrophils % 86.1 H Lymphocytes % 6.5 L D Monocytes % 6.6 Eosinophils % 0.4 Basophils % 0.4 Nucleated RBC % 0 Sodium 138 Potassium 3.8 Chloride 105 Carbon Dioxide 27 Anion Gap 5 L BUN 7 Creatinine 0.7 Creat Clearance w eGFR > 60 Random Glucose 84 Calcium 9.1 Total Bilirubin 0.3 AST 14 L ALT 14 Alkaline Phosphatase 79 Total Protein 7.8 Albumin 3.7 Urine Color Urine Appearance Urine pH Ur Specific [place] Urine Protein Urine Glucose (UA) Urine Ketones Urine Blood Urine Nitrite Urine Bilirubin Urine Urobilinogen Ur Leukocyte Esterase Urine WBC (Auto) Urine RBC (Auto) Ur Epithelial Cells Urine Mucus Urine Yeast Urine HCG, Qual Influenza A (Rapid) Negative Influenza B (Rapid) Negative 11/03/18 10:18 WBC RBC Hgb Hct MCV MCH MCHC RDW Plt Count MPV Absolute Neuts (auto) Neutrophils % Lymphocytes % Monocytes % Eosinophils % Basophils % Nucleated RBC % Sodium Potassium Chloride Carbon Dioxide Anion Gap BUN Creatinine Creat Clearance w eGFR Random Glucose Calcium Total Bilirubin AST ALT Alkaline Phosphatase Total Protein Albumin Urine Color Yellow Urine Appearance Slcloudy Urine pH 8.0 Ur Specific [place] 1.014 Urine Protein 1+ H Urine Glucose (UA) Negative Urine Ketones Negative Urine Blood 3+ H Urine Nitrite Negative Urine Bilirubin Negative Urine Urobilinogen Negative Ur Leukocyte Esterase Negative Urine WBC (Auto) 22 Urine RBC (Auto) 323 Ur Epithelial Cells Rare Urine Mucus Rare Urine Yeast Few Urine HCG, Qual Negative Influenza A (Rapid) Influenza B (Rapid) 11/03/18 11:29 Patient still painful, still feels ill, RLQ ttp. I have placed order for CT A/P with IV contrast. CT/ABDOMEN PELVIS CT WITH CONTR HISTORY PROVIDED: Abdominal pain. Sequential axial images were obtained from the domes of the diaphragms through the symphysis pubis following the administration of intravenous contrast material. The lung bases are clear. The patient is S/P bilateral breast implants. The liver, spleen, pancreas, adrenal glands and kidneys demonstrate no significant abnormalities. Small gallstones are identified within the gallbladder. There is no evidence of intra-abdominal or retroperitoneal lymphadenopathy or fluid collections. There is no evidence of pneumoperitoneum, bowel obstruction or intra-abdominal abscess. There is no CT evidence of acute appendicitis or diverticulitis. Examination of the pelvis demonstrates an enlarged uterus with heterogeneous masses consistent with leiomyomata. Cystic changes are noted within the right adnexa. There is a moderate amount of free fluid within the cul -de-sac. This appearance suggests recent ovarian cyst rupture. Clinical correlation is advised. There is no evidence of acute bony pathology. IMPRESSION : 1. Cholelithiasis. 2. Enlarged fibroid uterus. 3. Cystic changes right ovary. 4. Free pelvic fluid suggesting recent ovarian cyst rupture. 5. No additional evidence of acute pathology within the abdomen or pelvis. Please see above discussion. 11/03/18 14:39 Patient still feeling generally weak, lightheaded, nauseated. I have placed an order for 2nd liter NS, 4 mg Zofran IVPUSH. Patient will be ED Obs'ed as she does not feel she will be able to manage at home at this time. Vital Signs Temperature 98.2 F 11/03/18 15:23 Pulse Rate 89 11/03/18 15:23 Respiratory Rate 18 11/03/18 15:23 Blood Pressure 119/79 11/03/18 15:23 O2 Sat by Pulse Oximetry (%) 100 11/03/18 15:23 11/03/18 15:53 At the time of evaluation by Travis malin, the patient was complaining of increased pain and also was crying. Call is placed to Dr. Yang to discuss plan for admission. 11/03/18 16:53 I have spoken with Dr. Meza; will see her in clinic on Tuesday, on board with dispo plan. The patient is given PO tramadol, E-Rx sent for Tramadol. Vital Signs Temperature 98.2 F 11/03/18 16:59 Pulse Rate 72 11/03/18 16:59 Respiratory Rate 16 11/03/18 16:59 Blood Pressure 114/76 11/03/18 16:59 O2 Sat by Pulse Oximetry (%) 100 11/03/18 16:59 This patient has gotten significant relief of symptoms while in the ED. On last reassessment, vitals are wnl, pain is reasonably controlled, and exam is benign. Workup is not concerning for emergency-level pathology at this time. This patient is appropriate for discharge with close outpatient follow up. They are comfortable with this plan and will follow up with RF TEST TECHNICIAN on Tuesday. Specific return precautions are discussed and they will come back to the ER if necessary. *DC/Admit/Observation/Transfer Diagnosis at time of Disposition: Lightheaded, Generalized weakness, Ruptured ovarian cyst Vomiting Qualifiers: Vomiting type: unspecified Vomiting Intractability: non-intractable Nausea presence: with nausea Qualified Code(s): R11.2 - Nausea with vomiting, unspecified - Discharge Dispostion Disposition: HOME Condition at time of disposition: Stable Decision to Admit order: No - Prescriptions Prescriptions: traMADol HCL [Ultram -] 50 mg PO BID PRN 4 Days #8 tablet MDD 2 tabs PRN Reason: Pain - Referrals Referrals: Ayaan Yang MD [Staff Physician] - - Patient Instructions Printed Discharge Instructions: DI for Vomiting -- Adult Additional Instructions: You were seen in the ER for vomiting, lightheadedness, generalized weakness, and a few weeks of abdominal pain since your surgery. We did an exam, labs, and imaging studies. Your white blood cell count was a bit elevated and your pain persisted after IV Tylenol, so we decided to do a CT scan. The scan showed some ovarian cysts and some fluid in the pelvis, which probably represents a ruptured ovarian cyst (which is very common). After our assessment, we do not believe you are having a medical emergency at this time, and we believe you are safe to go home. Take Tylenol 1,000 mg once every 6 hours as needed. If you need additional pain medication beyond this, take the tramadol prescription pain medication that we are sending to your pharmacy. Please follow up with your RF TEST TECHNICIAN doctor or one of his partners on Tuesday. Call their clinic early on Tuesday, tell them you were seen in the ER, and tell them you need a follow-up. If you have any new or worsening symptoms, especially worsening pain , inability to keep down liquids, or other concerning symptoms, please come back to the ER at any time (24 hours a day). If you are having severe or life threatening symptoms, or symptoms that make it unsafe to drive or have someone drive you, please call 911. - Post Discharge Activity
[2018-11-03 09:54] VITALS: BMI 24.9
[2018-11-03] MEDS ORDERED: SODIUM CHLORIDE 0.9% 500 ML INFUS.BAG IV ONE ×2 (09:54→14:35)
[2018-11-03] MEDS ORDERED: ACETAMINOPHEN 1000 MG/100 ML VIAL (NON FORMULARY) IVPB ONE (09:54)
[2018-11-03] MEDS ORDERED: ACETAMINOPHEN INJECTION 100 ML IVPB ONE (10:20)
[2018-11-03 10:32] LABS: BASO % 0.4 % (0-2.0); EOS % 0.4 % (0-4.5); HEMATOCRIT 29.7 % (32.4-45.2); HEMOGLOBIN 9.7 GM/dL (10.7-15.3); LYMPH % 6.5 % (8-40); MCH 23.4 pg (25.7-33.7); MCHC 32.8 g/dl (32.0-36.0); MEAN CELL VOLUME 71.2 fl (80-96); MEAN PLT VOLUME 8.1 fl (7.5-11.1); MONO % 6.6 % (3.8-10.2); NEUT % 86.1 % (42.8-82.8); PLATELET COUNT 366 K/MM3 (134-434); RBC 4.17 M/mm3 (3.60-5.2); WHITE BLOOD COUNT 12.1 K/mm3 (4.0-10.0)
[2018-11-03 10:36] LABS: HCG,QUALITATIVE URINE Negative
[2018-11-03 11:00] LABS: URINE APPEARANCE SLCLOUDY; URINE BILIRUBIN NEGATIVE (<2.0 mg/dL); URINE COLOR YELLOW; URINE GLUCOSE (UA) NEGATIVE (NEGATIVE); URINE KETONE NEGATIVE (NEGATIVE); URINE LEUK ESTERASE NEGATIVE (NEGATIVE); URINE NITRITE NEGATIVE (NEGATIVE); URINE PROTEIN 1+ (NEGATIVE); URINE UROBILINOGEN NEGATIVE mg/dL (0.2-1.0)
[2018-11-03 11:01] LABS: ALBUMIN 3.7 g/dl (3.4-5.0); ALK PHOS 79 U/L (45-117); ANION GAP 5 MMOL/L (8-16); BILIRUBIN,TOTAL 0.3 mg/dL (0.2-1); BLOOD UREA NITROGEN 7 mg/dL (7-18); CALCIUM 9.1 mg/dL (8.5-10.1); CHLORIDE 105 mmol/L (98-107); CO2 27 mmol/L (21-32); CREATININE 0.7 mg/dL (0.55-1.3); GLUCOSE,RANDOM 84 mg/dL (74-106); POTASSIUM 3.8 mmol/L (3.5-5.1); SGOT/AST 14 U/L (15-37); SGPT/ALT 14 U/L (13-61); SODIUM 138 mmol/L (136-145); TOT PROT 7.8 g/dl (6.4-8.2)
[2018-11-03 11:04] LABS: EPI CELLS RARE /HPF (FEW); URINE MUCUS RARE; YEAST FEW
--- NOTE | 2018-11-03 13:26 | PDOC ---
Attending Attestation - Medical Decision Making 11/03/18 16:05 Dr. Matias was paged at this time. 11/03/18 16:30 Dr. Yang paged a second time. 11/03/18 16:41 Dr. Meza returned the call and spoke to Dr. Calvin. Documentation prepared by Albina Carcamo, acting as chief medical technologist for Jason Dawkins MD <Albina Carcamo - Last Filed: 11/03/18 16:41> - Resident Resident Name: Heather Calvin - ED Attending Attestation I have performed the following: I have examined & evaluated the patient, The case was reviewed & discussed with the resident, I agree w/resident's findings & plan, Exceptions are as noted - HPI HPI: 11/03/18 13:22 33yo F hx fibroids s/p mymectomy 09/2018 c/b partial SBO presents to the ED with 1 week of weakness, lightheadness, anorexia, nausea, vomiting and diarrhea. This morning, pt was noted to be pale per her coworker prompting them to call 911. Pt denies fevers, but admits to chills. States she has been eating and drinking less for 5 days as she hasn't felt up to eating. No treatments tried. Pt has not seen her PMD. Denies abd pain, distention, constipation. Denies room spinning dizziness, focal weakness/numbness, stiff neck, CP/SOB, LE edema, urinary frequency dysuria, urgency. - Physicial Exam PE: 11/03/18 13:27 agree with resident exam - Medical Decision Making 11/03/18 13:27 33yo F with recent myomectomy presents to the ED with weakness, N/V/D, chills. Vitals wnl. Exam with suprapubic ttp, otherwise pt is non toxic appearing. Plan for labs, UA, UPT, CTAP, symptom control, IVF, reassess. 11/03/18 17:48 Work up revealing of ruptured ovarian cyst with moderate free fluid in cul de sac. 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 I answered all of the patient's questions. The patient was satisfied with the care received and felt comfortable with the discharge plan and treatment plan. The patient will call their primary care physician within 24 hours to arrange follow-up and will return to the Emergency Department with any new, persistent or worsening symptoms. <Jason Dawkins - Last Filed: 11/03/18 17:52>
[2018-11-03] MEDS ORDERED: ONDANSETRON 4 MG/2 ML VIAL IVPUSH ONE (14:35)
[2018-11-03] MEDS ORDERED: ONDANSETRON 4 MG/2 ML VIAL ONE (14:39)
[2018-11-03 15:24] VITALS: TEMP 98.2
--- NOTE | 2018-11-03 15:32 | PN ---
Teaching Attending Note Name of Resident: Saray Toure ATTENDING PHYSICIAN STATEMENT I saw and evaluated the patient. I reviewed the resident's note and discussed the case with the resident. I agree with the resident's findings and plan as documented. SUBJECTIVE: Patient is a 33yo Female with Pmhx of fibroids s/p mymectomy 09/2018 presents to the ED with 1 week of weakness, lightheadness, anorexia, nausea, vomiting and diarrhea. OBJECTIVE: Vital Signs Temperature 98.2 F 11/03/18 15:23 Pulse Rate 89 11/03/18 15:23 Respiratory Rate 18 11/03/18 15:23 Blood Pressure 119/79 11/03/18 15:23 O2 Sat by Pulse Oximetry (%) 100 11/03/18 15:23 GENERAL: A/Ox4, no distress, answers questions appropriately HEENT: PERRLA, EOMI, moist mucous membranes NECK/BACK: no hematoma, full ROM, neck supple CARDIOVASCULAR: RRR, normal S1S2, no edema LUNGS/RESPIRATORY: no respiratory distress, CTAB GI/ABDOMEN: positive BS, soft, no midline pulsatile masses EXTREMITIES: no muscle atrophy, no acute deformity SKIN: warm and dry, no pallor, no jaundice, no rash. NEUROLOGICAL: CN II-XII grossly intact, 5/5 strength upper and lower CBCD WBC 12.1 K/mm3 (4.0-10.0) H 11/03/18 10:01 RBC 4.17 M/mm3 (3.60-5.2) 11/03/18 10:01 Hgb 9.7 GM/dL (10.7-15.3) L 11/03/18 10:01 Hct 29.7 % (32.4-45.2) L 11/03/18 10:01 MCV 71.2 fl (80-96) L 11/03/18 10:01 MCHC 32.8 g/dl (32.0-36.0) 11/03/18 10:01 RDW 18.0 % (11.6-15.6) H 11/03/18 10:01 Plt Count 366 K/MM3 (134-434) D 11/03/18 10:01 MPV 8.1 fl (7.5-11.1) 11/03/18 10:01 CMP Sodium 138 mmol/L (136-145) 11/03/18 10:01 Potassium 3.8 mmol/L (3.5-5.1) 11/03/18 10:01 Chloride 105 mmol/L (98-107) 11/03/18 10:01 Carbon Dioxide 27 mmol/L (21-32) 11/03/18 10:01 Anion Gap 5 MMOL/L (8-16) L 11/03/18 10:01 BUN 7 mg/dL (7-18) 11/03/18 10:01 Creatinine 0.7 mg/dL (0.55-1.3) 11/03/18 10:01 Creat Clearance w eGFR > 60 (>60) 11/03/18 10:01 Random Glucose 84 mg/dL (74-106) 11/03/18 10:01 Calcium 9.1 mg/dL (8.5-10.1) 11/03/18 10:01 Total Bilirubin 0.3 mg/dL (0.2-1) 11/03/18 10:01 AST 14 U/L (15-37) L 11/03/18 10:01 ALT 14 U/L (13-61) 11/03/18 10:01 Alkaline Phosphatase 79 U/L (45-117) 11/03/18 10:01 Total Protein 7.8 g/dl (6.4-8.2) 11/03/18 10:01 Albumin 3.7 g/dl (3.4-5.0) 11/03/18 10:01 Home Medications Medication Instructions Recorded NK [No Known Home Medication] 11/03/18 ASSESSMENT AND PLAN:
[2018-11-03] MEDS ORDERED: traMADol HCL 50 MG TABLET PO ONE (16:52)
[2018-11-03] MEDS ORDERED: traMADol HCL 50 MG TABLET ONE (16:54)
[2018-11-03 17:02] VITALS: BP 114/76; PULSE 72
== END 2018-11-03 17:04 | disposition home or self-care (01) ==
LOC: JER 09:21
PROC: 3E0337Z Introduction of Electrolytic and Water Balance Substance into Peripheral Vein, Percutaneous Approach (ICD-10-PCS; principal; 2018-11-03)
PROC: 3E0337Z Introduction of Electrolytic and Water Balance Substance into Peripheral Vein, Percutaneous Approach (ICD-10-PCS; 2018-11-03)
PROC: 3E033NZ Introduction of Analgesics, Hypnotics, Sedatives into Peripheral Vein, Percutaneous Approach (ICD-10-PCS; 2018-11-03)
PROC: 3E033GC Introduction of Other Therapeutic Substance into Peripheral Vein, Percutaneous Approach (ICD-10-PCS; 2018-11-03)
DX: N83.209 Unspecified ovarian cyst, unspecified side (principal); R53.1 Weakness; R42 Dizziness and giddiness; F17.210 Nicotine dependence, cigarettes, uncomplicated
CPT/HCPCS: 36415; 74177-TC; 80053; 81003; 81015; 84703; 85025; 87086; 87804; 99284-25; J0131

== ENCOUNTER 2018-11-04 18:02 | Observation (INO) | payer BC ==
--- NOTE | 2018-11-04 18:15 | PDOC ---
History of Present Illness - General Chief Complaint: Pain, Acute Stated Complaint: PAIN-POST SURGERY Time Seen by Provider: 11/04/18 18:15 - History of Present Illness Initial Comments: 11/04/18 18:22 Ms. Mccarthy is a 33 yo female w/ pmh of fibroids s/p myomectomy 09/2018 w/ resultant partial SBO who presents for evaluation pain. Patient was evaluated yesterday w/ complaints of 1 week of weakness, lightheaded feeling, anorexia, N/ V/D and found to have ruptured ovarian cyst w/ moderate fluid in cul de sac. Patient pain significantly improved following tramadol and CAKE INSPECTOR evaluating on Tuesday. Patient represents today as she began to have increased nausea and dizziness after arriving home last night and had an additional episode of vomiting today (NBNB). Pain has also continued. Is currently menstruating. The patient denies chest pain, shortness of breath, headache and dizziness. Denies fever, chills, diarrhea and constipation. Denies dysuria, frequency, urgency and hematuria. Past History - Past Medical History Allergies/Adverse Reactions: Allergies Allergy/AdvReac Type Severity Reaction Status Date / Time latex Allergy Mild "itchy and Verified 11/03/18 09:45 hives" No Known Drug Allergies Allergy Verified 11/03/18 09:45 SEAFOOD Allergy Mild "airway Uncoded 11/03/18 09:45 closes up" Home Medications: Ambulatory Orders traMADol HCL [Ultram -] 50 mg PO BID PRN 4 Days #8 tablet MDD 2 tabs 11/03/18 Anemia: Yes Asthma: No Cancer: No Cardiac Disorders: No CVA: No COPD: No CHF: No Dementia: No Diabetes: No GI Disorders: No Disorders: No HTN: No Hypercholesterolemia: No Liver Disease: No Seizures: No Thyroid Disease: No - Reproductive History (#): 1 Para: 0 Cervical CA: No Dysfunctional Uterine Bleeding: No Ectopic : No Endometrial CA: No Polycystic Ovaries: No Therapeutic (s) & number: Yes Tubal Ligation: No Spontaneous : 0 - Immunization History Immunization Up to Date: Yes - Suicide/Smoking/Psychosocial Hx Smoking Status: Yes Smoking History: Never smoked Have you smoked in the past 12 months: Yes Number of Cigarettes Smoked Daily: 5 'Breaking Loose' booklet given: 09/28/18 Hx Alcohol Use: No Drug/Substance Use Hx: No Substance Use Type: Alcohol Hx Substance Use Treatment: No Review of Systems - Review of Systems Comments:: 11/04/18 18:49 GENERAL/CONSTITUTIONAL: No fever or chills. No weakness. HEAD, EYES, EARS, NOSE AND THROAT: No change in vision. No ear pain or discharge. No sore throat. CARDIOVASCULAR: No chest pain or shortness of breath RESPIRATORY: No cough, wheezing, or hemoptysis. GASTROINTESTINAL: +RLQ abdominal pain. N/V as described. GENITOURINARY: No dysuria, frequency, or change in urination. MUSCULOSKELETAL: No joint or muscle swelling or pain. No neck or back pain. SKIN: No rash NEUROLOGIC: No headache, vertigo, loss of consciousness, or change in strength/ sensation. ENDOCRINE: No increased thirst. No abnormal weight change HEMATOLOGIC/LYMPHATIC: No anemia, easy bleeding, or history of blood clots. ALLERGIC/IMMUNOLOGIC: No hives or skin allergy. *Physical Exam - Vital Signs Last Vital Signs Temp Pulse Resp BP Pulse Ox 97.0 F L 100 H 15 145/94 100 11/04/18 18:05 11/04/18 18:05 11/04/18 18:05 11/04/18 18:05 11/04/18 18:05 - Physical Exam Comments: 11/04/18 18:52 GENERAL: Awake, alert, and fully oriented, in no acute distress HEAD: No signs of trauma, normocephalic, atraumatic EYES: PERRLA, EOMI, sclera anicteric, conjunctiva clear ENT: Auricles normal inspection, hearing grossly normal, nares patent, oropharynx clear without exudates. Moist mucosa NECK: Normal ROM, supple, no lymphadenopathy, JVD, or masses LUNGS: No distress, speaks full sentences, clear to auscultation bilaterally HEART: Regular rate and rhythm, normal S1 and S2, no murmurs, rubs or gallops, peripheral pulses normal and equal bilaterally. ABDOMEN: +RLQ TTP. Soft, normoactive bowel sounds. No guarding, no rebound. No masses EXTREMITIES: Normal inspection, Normal range of motion, no edema. No clubbing or cyanosis. NEUROLOGICAL: Cranial nerves II through XII grossly intact. Normal speech, normal gait, no focal sensorimotor deficits SKIN: Warm, Dry, normal turgor, no rashes or lesions noted. Moderate Sedation - Procedure Monitoring Vital Signs: Procedure Monitoring Vital Signs Temperature 97.0 F L 11/04/18 18:05 Pulse Rate 100 H 11/04/18 18:05 Respiratory Rate 15 11/04/18 18:05 Blood Pressure 145/94 11/04/18 18:05 O2 Sat by Pulse Oximetry (%) 100 11/04/18 18:05 ED Treatment Course - LABORATORY CBC & Chemistry Diagram: 11/04/18 19:41 11/04/18 19:41 Medical Decision Making - Medical Decision Making 11/04/18 22:09 Ms. Mccarthy is a 33 yo female w/ pmh as described who presents for evaluation of continued RLQ pain. Patient repeat workup started with basic CBC/CMP/Lactic acid. Results concerning for decreased hemoglobin and elevated white count as below. Given patient's continued pain, right sided abdominal US and TVUS ordered for further evaluation. US significant for small to moderate amount of free fluid noted w/in the posterior cul-de-sac in pelvis - unable to visualize right and left ovary. Again seen is cholelithiasis w/out findings concerning for cholecystitis. Given non-specific workup however Decreased in Hgb from 9.7 to 8.8, decision made to contact LOAD OUT PERSON. 11/04/18 22:20 Discussed with covering LOAD OUT PERSON (Dr. Meza) who recommend repeating CT scan for further evaluation. If scan is negative and pain is controlled recommend outpatient follow-up. If CAKE INSPECTOR problem identified they will admit. Patient agrees with this plan. 11/04/18 23:[address] read. Patient signed out to Dr. Franks for further evaluation. 11/04/18 23:54 Patient unable to tolerate CT scan and experiencing nausea/vomiting during jitney driver session. Patient returned to room; given fluids/zofran. 11/05/18 00:05 Discussed with LOAD OUT PERSON who recommend admission to hospitalist for serial abdominal exams w/ LOAD OUT PERSON evaluation. Hospitalist paged for further evaluation. Patient signed out to Dr. Santo for further evaluation. Laboratory Results - last 24 hr 11/04/18 11/04/18 11/04/18 19:41 19:41 19:41 WBC 14.5 H RBC 3.78 Hgb 8.8 L Hct 26.9 L MCV 71.2 L MCH 23.2 L MCHC 32.6 RDW 18.2 H Plt Count 374 MPV 8.0 Absolute Neuts (auto) 12.0 H Neutrophils % 82.8 Lymphocytes % 9.9 D Monocytes % 5.9 Eosinophils % 1.0 D Basophils % 0.4 Nucleated RBC % 0 Sodium 138 Potassium 3.9 Chloride 105 Carbon Dioxide 25 Anion Gap 8 BUN 7 Creatinine 0.7 Creat Clearance w eGFR > 60 Random Glucose 95 Lactic Acid 0.9 Calcium 8.8 Total Bilirubin 0.3 AST 8 L ALT 13 Alkaline Phosphatase 71 Total Protein 7.4 Albumin 3.4 *DC/Admit/Observation/Transfer Diagnosis at time of Disposition: Pelvic pain - Discharge Dispostion Decision to Admit order: Yes - Referrals - Patient Instructions - Post Discharge Activity
--- NOTE | 2018-11-04 18:17 | PDOC ---
Attending Attestation - HPI HPI: 11/04/18 19:39 The patient is a 33 year old female with a significant past medical history of fibroids, anemia and partial SBO who presents to the emergency department with increased right lower quadrant pain for 2 days. The patient reports that she recently had surgery related to her complaint. She states that she was seen yesterday for similar pain by which she had a CT scan which showed that she had a ruptured cyst. The patient states that she was given pain medication with no significant relief. She describes her pain as a 10/10 in severity.She endorses some associated nausea, vomiting, chills, diaphoresis and lightheadedness. The patient states that she is currently on her menstrual period but, states that her pain does not feel like her usual period. She denies any other symptoms or complaints. - Physicial Exam PE: 11/04/18 19:39 GENERAL: The patient is in no acute distress. HEAD: Normal with no signs of trauma. EYES: PERRLA, EOMI, sclera anicteric, conjunctiva clear. ENT: Ears normal, nares patent, oropharynx clear without exudates. Moist mucous membranes. NECK: Normal range of motion, supple without lymphadenopathy, JVD, or masses. LUNGS: Breath sounds equal, clear to auscultation bilaterally. No wheezes, and no crackles. HEART:Regular rate and rhythm, normal S1 and S2 without murmur, rub or gallop. ABDOMEN: (+)LLQ tenderness. Soft,normoactive bowel sounds. No guarding, no rebound. No masses palpable. EXTREMITIES: Normal range of motion, no edema. No clubbing or cyanosis. No erythema, or tenderness. NEUROLOGICAL: Cranial nerves II through XII grossly intact. Normal speech. No focal neurological deficits. MUSCULOSKELETAL: Back non-tender to palpation, no CVA tenderness SKIN: Warm, Dry, normal turgor, no rashes or lesions noted. Documentation prepared by Myrna Arvizu, acting as director medical surgical for Leigh Ann Landa MD. <Myrna Arvizu - Last Filed: 11/04/18 19:38> - Resident Resident Name: Semaj Nettles - ED Attending Attestation I have performed the following: I have examined & evaluated the patient, The case was reviewed & discussed with the resident, I agree w/resident's findings & plan, Exceptions are as noted - Medical Decision Making 11/04/18 18:20 Ms Mccarthy is a 33 yo F h/o menometrorrhagia s/p open myomectomy, ileus VS partial SBO, s/p recent presentation to the ER for abdominal pain, CT demonstrated fluid around the right ovary consistent with ruptured cyst Pt returns to the ER. Pt felt better after getting tramadol. She noted more pain today She states that she took Tramadol but it didn't help No vomiting Tolerated a sandwich No fevers 11/04/18 20:38 Laboratory Tests 11/03/18 11/04/18 10:01 19:41 WBC 12.1 H 14.5 H Hgb 9.7 L 8.8 L Hct 29.7 L 26.9 L Plt Count 366 D 374 11/04/18 21:00 Laboratory Tests 11/04/18 11/04/18 19:41 19:41 Sodium 138 Potassium 3.9 Chloride 105 Carbon Dioxide 25 BUN 7 Creatinine 0.7 Random Glucose 95 Lactic Acid 0.9 11/04/18 22:36 US- cholelithiasis, initial presentation Neither ovary visualized on this examination Call placed to dean covering Dr. Yang Recommends repeat CT 11/04/18 23:[address] Pt US demonstrates moderate fluid in the posterior cul de sac Neither ovary can be visualized This raises the possibility that there is right ovarian torsion? vs hemorrhagic cyst rupture (pt has a 1 point drop in hgb) Call placed to OB May be more prudent to place this patient on observation for serial abdominal examinations, repeat Hgb and repeat US The OB requests that we admit to hospitalist with dean consult 11/05/18 00:[address] Beck He is requesting that dean come to the bedside to see this patient <Leigh Ann Landa - Last Filed: 11/05/18 00:40> *DC/Admit/Observation/Transfer - Discharge Dispostion Decision to Admit order: Yes <Leigh Ann Landa - Last Filed: 11/05/18 00:40> Diagnosis at time of Disposition: Pelvic pain, Ruptured ovarian cyst - Discharge Dispostion Condition at time of disposition: Stable
[2018-11-04] MEDS ORDERED: ACETAMINOPHEN 1000 MG/100 ML VIAL (NON FORMULARY) IVPB ONE (18:54)
[2018-11-04] MEDS ORDERED: SODIUM CHLORIDE 1,000 ML IV STA ×2 (18:54→23:52)
[2018-11-04] MEDS ORDERED: ONDANSETRON 4 MG/2 ML VIAL IVPUSH ONE ×2 (18:54→23:52)
[2018-11-04] MEDS ORDERED: ACETAMINOPHEN INJECTION 100 ML IVPB ONE (19:24)
[2018-11-04 20:07] LABS: BASO % 0.4 % (0-2.0); HEMATOCRIT 26.9 % (32.4-45.2); HEMOGLOBIN 8.8 GM/dL (10.7-15.3); LYMPH % 9.9 % (8-40); MCH 23.2 pg (25.7-33.7); MCHC 32.6 g/dl (32.0-36.0); MEAN CELL VOLUME 71.2 fl (80-96); MONO % 5.9 % (3.8-10.2); NEUT % 82.8 % (42.8-82.8); PLATELET COUNT 374 K/MM3 (134-434); RBC 3.78 M/mm3 (3.60-5.2); RDW 18.2 % (11.6-15.6); WHITE BLOOD COUNT 14.5 K/mm3 (4.0-10.0)
[2018-11-04 20:29] LABS: ALBUMIN 3.4 g/dl (3.4-5.0); ALK PHOS 71 U/L (45-117); ANION GAP 8 MMOL/L (8-16); BILIRUBIN,TOTAL 0.3 mg/dL (0.2-1); BLOOD UREA NITROGEN 7 mg/dL (7-18); CALCIUM 8.8 mg/dL (8.5-10.1); CHLORIDE 105 mmol/L (98-107); CO2 25 mmol/L (21-32); CREATININE 0.7 mg/dL (0.55-1.3); GLUCOSE,RANDOM 95 mg/dL (74-106); POTASSIUM 3.9 mmol/L (3.5-5.1); SGOT/AST 8 U/L (15-37); SGPT/ALT 13 U/L (13-61); SODIUM 138 mmol/L (136-145); TOT PROT 7.4 g/dl (6.4-8.2)
[2018-11-04] MEDS ORDERED: ONDANSETRON 4 MG/2 ML VIAL ONE (21:01)
[2018-11-05] MEDS ORDERED: ONDANSETRON 4 MG/2 ML VIAL ONE (00:12)
--- NOTE | 2018-11-05 00:37 | PDOC ---
*Physical Exam - Vital Signs Last Vital Signs Temp Pulse Resp BP Pulse Ox 97.0 F L 100 H 15 145/94 100 11/04/18 18:05 11/04/18 18:05 11/04/18 18:05 11/04/18 18:05 11/04/18 18:05 ED Treatment Course - LABORATORY CBC & Chemistry Diagram: 11/04/18 19:41 11/04/18 19:41 - ADDITIONAL ORDERS Additional order review: Laboratory Results 11/04/18 11/04/18 19:41 19:41 Sodium 138 Potassium 3.9 Chloride 105 Carbon Dioxide 25 Anion Gap 8 BUN 7 Creatinine 0.7 Creat Clearance w eGFR > 60 Random Glucose 95 Lactic Acid 0.9 Calcium 8.8 Total Bilirubin 0.3 AST 8 L ALT 13 Alkaline Phosphatase 71 Total Protein 7.4 Albumin 3.4 11/04/18 19:41 RBC 3.78 MCV 71.2 L MCHC 32.6 RDW 18.2 H MPV 8.0 Neutrophils % 82.8 Lymphocytes % 9.9 D Monocytes % 5.9 Eosinophils % 1.0 D Basophils % 0.4 - Medications Given in the ED: ED Medications Discontinued Medications Generic Name Dose Route Start Last Admin Trade Name Freq PRN Reason Stop Dose Admin Acetaminophen 1,000 mg 11/04/18 18:54 11/04/18 19:49 Ofirmev Injection - IVPB 11/04/18 18:55 1,000 mg ONCE ONE Administration Sodium Chloride 1,000 mls @ 1,000 mls/hr 11/04/18 18:54 11/04/18 19:49 Normal Saline - IV 11/04/18 19:53 1,000 mls/hr ASDIR STA Administration Ondansetron HCl 4 mg 11/04/18 18:54 11/04/18 21:08 Zofran Injection IVPUSH 11/04/18 18:55 4 mg ONCE ONE Administration Medical Decision Making - Medical Decision Making 11/05/18 00:36 Patient signed out by Dr. Nettles (Resident) and under the care of Dr. Landa (Attending) Reassed @ bedside No TTP w/stethescope test *DC/Admit/Observation/Transfer Diagnosis at time of Disposition: Pelvic pain - Referrals - Patient Instructions - Post Discharge Activity
[2018-11-05 04:22] VITALS: BMI 27.6
[2018-11-05] MEDS ORDERED: ACETAMINOPHEN 1000 MG/100 ML VIAL (NON FORMULARY) IVPB PRN (06:55)
[2018-11-05] MEDS: oxyCODONE HCL 5 MG TABLET PO PRN ×2 (07:08→17:27)
--- NOTE | 2018-11-05 08:59 | PN ---
Progress Note (SOAP) - Current Medications Current Medications: Active Medications Acetaminophen (Ofirmev Injection -) 1,000 mg IVPB Q6H PRN PRN Reason: PAIN LEVEL 4 - 6 Oxycodone HCl (Roxicodone -) 5 mg PO Q6H PRN PRN Reason: PAIN LEVEL 7 - 10 Last Admin: 11/05/18 07:08 Dose: 5 mg Polyethylene Glycol (Miralax (For Daily Use) -) 17 gm PO DAILY SHERICE - Objective Vital Signs: Vital Signs Temperature 97.9 F 11/05/18 03:55 Pulse Rate 65 11/05/18 03:55 Respiratory Rate 18 11/05/18 03:55 Blood Pressure 96/47 L 11/05/18 03:55 O2 Sat by Pulse Oximetry (%) 99 11/05/18 03:55 Labs Lab Results: CBC, BMP 11/04/18 19:41 11/04/18 19:41
--- NOTE | 2018-11-05 09:00 | HP ---
Admitting History and Physical - Admission History of Present Illness: 33 yo HD #1 admitted for observation for abdominal pain and drop in H/H; postop ~ 1 month s/p abdominal myomectomy complicated by ileus / SBO Patient reports pain started in the RLQ approximately 7 days ago. 3 days ago was in severe pain, ambulance was called and she was brought to the ED for evaluation. She underwent a CT and ultrasound and was told she had a ruptured ovarian cyst. She was given pain medication and was discharged home. She reports continued pain without improvement with PO meds. She reports no BM since Tuesday or Tuesday last week (approximately 4-5 days ago) and has had decreased PO intake secondary to decreased appetite. She is tolerating fluids without issue. She also reports starting her menses 2 days ago. She has a history of severely painful and heavy menses, which resulted in her having surgery. This is her first menses since the surgery. On presentation to the ED, repeat ultrasound could not visualize the ovaries secondary to gas; and she did not tolerate PO contrast for repeat CT. The decision was made to admit her for evaluation of abdominal pain History Source: Patient Limitations to Obtaining History: No Limitations - Past Medical History Cardiovascular: No: HTN Pulmonary: No: Asthma ...LMP: 11/03/18 Heme/Onc: Yes: Anemia - Past Surgical History Additional Past Surgical History: Breast augmentation Liposuction Abdominal myomectomy 09/2018 - Smoking History Smoking history: Never smoked Have you smoked in the past 12 months: Yes Aproximately how many cigarettes per day: 5 - Alcohol/Substance Use Hx Alcohol Use: No History of Substance Use: reports: None - Social History Occupation: Works for [employer] History of Recent Travel: No Home Medications - Allergies Allergies/Adverse Reactions: Allergies Allergy/AdvReac Type Severity Reaction Status Date / Time latex Allergy Mild "itchy and Verified 11/03/18 09:45 hives" No Known Drug Allergies Allergy Verified 11/03/18 09:45 SEAFOOD Allergy Mild "airway Uncoded 11/03/18 09:45 closes up" - Home Medications Home Medications: Ambulatory Orders traMADol HCL [Ultram -] 50 mg PO BID PRN 4 Days #8 tablet MDD 2 tabs 11/03/18 Family Disease History - Family Disease History Family Disease History: Other: Father (Alive, healthy), Mother (Alive, HTN), Brother (1, healthy) Physical Examination Vital Signs: Vital Signs Temperature 97.9 F 11/05/18 03:55 Pulse Rate 65 11/05/18 03:55 Respiratory Rate 18 11/05/18 03:55 Blood Pressure 96/47 L 11/05/18 03:55 O2 Sat by Pulse Oximetry (%) 99 11/05/18 03:55 Labs: CBC, BMP 11/04/18 19:41 11/04/18 19:41 Assessment/Plan 33 yo s/p myomectomy complicated by SBO, presenting with RLQ pain, mild drop in H/H, admitted for evaluation 1. 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 Anemia - 1 point drop between Tuesday and today May be secondary to menses Will repeat CBC today Will monitor for additional causes of bleeding 3. Advance diet as tolerated
[2018-11-05 10:28] LABS: BASO % 0.4 % (0-2.0); EOS % 1.9 % (0-4.5); HEMATOCRIT 25.7 % (32.4-45.2); HEMOGLOBIN 8.4 GM/dL (10.7-15.3); LYMPH % 14.6 % (8-40); MCH 23.4 pg (25.7-33.7); MCHC 32.9 g/dl (32.0-36.0); MEAN PLT VOLUME 7.7 fl (7.5-11.1); MONO % 6.6 % (3.8-10.2); NEUT % 76.5 % (42.8-82.8); PLATELET COUNT 334 K/MM3 (134-434); RBC 3.62 M/mm3 (3.60-5.2); RDW 17.4 % (11.6-15.6); WHITE BLOOD COUNT 9.8 K/mm3 (4.0-10.0)
[2018-11-05] MEDS: POLYETHYLENE GLYCOL 3350 119 GM BTL PO SCH (10:52)
[2018-11-05] MEDS ORDERED: ACETAMINOPHEN 325 MG TABLET (FP) PO PRN (17:26)
[2018-11-05] MEDS ORDERED: SODIUM CHLORIDE 500 ML IV ONE (17:30)
[2018-11-05] MEDS: IBUPROFEN 600 MG TABLET (FP) PO PRN (21:40)
[2018-11-06] MEDS ORDERED: PT OWN MED DRAWER 7, Y5N ONE (06:49)
[2018-11-06 07:38] LABS: BASO % 0.7 % (0-2.0); EOS % 3.6 % (0-4.5); HEMATOCRIT 23.9 % (32.4-45.2); HEMOGLOBIN 7.9 GM/dL (10.7-15.3); LYMPH % 23.6 % (8-40); MCH 23.5 pg (25.7-33.7); MEAN CELL VOLUME 71.2 fl (80-96); MEAN PLT VOLUME 8.5 fl (7.5-11.1); NEUT % 64.1 % (42.8-82.8); PLATELET COUNT 348 K/MM3 (134-434); RBC 3.36 M/mm3 (3.60-5.2); RDW 17.6 % (11.6-15.6); WHITE BLOOD COUNT 6.4 K/mm3 (4.0-10.0)
[2018-11-06] MEDS: POLYETHYLENE GLYCOL 3350 119 GM BTL PO SCH (09:54)
[2018-11-06] MEDS: oxyCODONE HCL 5 MG TABLET PO PRN (12:28)
[2018-11-06] MEDS ORDERED: BISACODYL 5 MG TABLET.DR (FP) PO PRN (12:44)
[2018-11-06] MEDS ORDERED: LEUPROLIDE ACETATE 7.5 MG KIT IM ONE (14:48)
[2018-11-06 15:37] VITALS: BP 126/80; PULSE 88; TEMP 98.2
[2018-11-06] MEDS: IBUPROFEN 600 MG TABLET (FP) PO PRN (15:38)
[2018-11-06 17:27] LABS: BASO % 0.5 % (0-2.0); EOS % 2.4 % (0-4.5); HEMATOCRIT 25.4 % (32.4-45.2); HEMOGLOBIN 8.3 GM/dL (10.7-15.3); LYMPH % 21.7 % (8-40); MCH 23.1 pg (25.7-33.7); MCHC 32.7 g/dl (32.0-36.0); MEAN CELL VOLUME 70.8 fl (80-96); MEAN PLT VOLUME 8.3 fl (7.5-11.1); MONO % 6.2 % (3.8-10.2); NEUT % 69.2 % (42.8-82.8); PLATELET COUNT 428 K/MM3 (134-434); RBC 3.59 M/mm3 (3.60-5.2); RDW 17.9 % (11.6-15.6); WHITE BLOOD COUNT 7.3 K/mm3 (4.0-10.0)
--- NOTE | 2018-11-06 17:46 | PN ---
Progress Note (short form) - Note Progress Note: states she feels much better , has her periods , bleeding has decreased , no dizziness , passing gas , had BM CBC, BMP 11/06/18 16:20 11/04/18 19:41 Last Vital Signs Temp Pulse Resp BP Pulse Ox 98.2 F 88 18 126/80 100 11/06/18 15:36 11/06/18 15:36 11/06/18 15:36 11/06/18 15:36 11/06/18 10:00 abdomen soft , no distension, no rebound, no cva , BS are present and normal scar well healed vagina minimal dark blood impression adenomyosis, fibroid uterus anemia asymptomatic now plan advised lupron rba discussed iron, vit follow up in office 2 weeks pain management cont iron, vit
== END 2018-11-06 18:00 | disposition home or self-care (01) ==
LOC: JER 18:02 → JERBED 23:58 → J5S 11-05 02:49
PROVIDERS: ADMIT Obstetrics & Gynecology; ATTEND Obstetrics & Gynecology
PROC: 3E0337Z Introduction of Electrolytic and Water Balance Substance into Peripheral Vein, Percutaneous Approach (ICD-10-PCS; principal; 2018-11-04)
PROC: 3E033NZ Introduction of Analgesics, Hypnotics, Sedatives into Peripheral Vein, Percutaneous Approach (ICD-10-PCS; 2018-11-04)
PROC: 3E033GC Introduction of Other Therapeutic Substance into Peripheral Vein, Percutaneous Approach (ICD-10-PCS; 2018-11-04)
PROC: 3E023GC Introduction of Other Therapeutic Substance into Muscle, Percutaneous Approach (ICD-10-PCS; 2018-11-04)
DX: R10.2 Pelvic and perineal pain (principal); D64.9 Anemia, unspecified; Z91.013 Allergy to seafood; N83.299 Other ovarian cyst, unspecified side
CPT/HCPCS: 36415; 74177-TC; 76705-TC; 76830-TC; 76856-TC; 80053; 83605; 85025; 99283-25; G0378; J0131; J7030

== ENCOUNTER 2018-11-14 16:11 | Emergency (ER) | payer BC ==
[2018-11-14 16:25] VITALS: BP 126/74; PULSE 98; TEMP 98.1; BMI 26.0
--- NOTE | 2018-11-14 17:03 | PDOC ---
History of Present Illness - General Chief Complaint: Vaginal Bleeding Stated Complaint: Bleeding Time Seen by Provider: 11/14/18 16:54 History Source: Patient Past History - Past Medical History Allergies/Adverse Reactions: Allergies Allergy/AdvReac Type Severity Reaction Status Date / Time latex Allergy Mild "itchy and Verified 11/14/18 16:21 hives" No Known Drug Allergies Allergy Verified 11/14/18 16:21 SEAFOOD Allergy Mild "airway Uncoded 11/14/18 16:21 closes up" Home Medications: Ambulatory Orders traMADol HCL [Ultram -] 50 mg PO BID PRN 4 Days #8 tablet MDD 2 tabs 11/03/18 Ferrous Sulfate/Vit C/FA [Folitab 500 Caplet -] 1 each PO DAILY #30 tablet.er Oxycodone HCl/Acetaminophen [Percocet 5-325 mg Tablet] 1 tab PO Q6H PRN #20 tablet MDD 4 11/06/18 Anemia: Yes Asthma: No Cancer: No Cardiac Disorders: No CVA: No COPD: No CHF: No Dementia: No Diabetes: No GI Disorders: No Disorders: No HTN: No Hypercholesterolemia: No Liver Disease: No Seizures: No Thyroid Disease: No Other medical history: UTERINE FIBROIDS - Reproductive History (#): 1 Para: 0 Cervical CA: No Dysfunctional Uterine Bleeding: No Ectopic : No Endometrial CA: No Polycystic Ovaries: No Therapeutic (s) & number: Yes Tubal Ligation: No Spontaneous : 0 - Immunization History Immunization Up to Date: Yes - Suicide/Smoking/Psychosocial Hx Smoking Status: Yes Smoking History: Current every day smoker Have you smoked in the past 12 months: Yes Number of Cigarettes Smoked Daily: 4 Information on smoking cessation initiated: No 'Breaking Loose' booklet given: 09/28/18 Hx Alcohol Use: No Drug/Substance Use Hx: No Substance Use Type: Alcohol Hx Substance Use Treatment: No Review of Systems - Review of Systems Constitutional: Yes: Weakness ABD/GI: No: Nausea, Vomiting, Abdominal cramping : No: Dysuria *Physical Exam - Vital Signs Last Vital Signs Temp Pulse Resp BP Pulse Ox 98.1 F 98 H 16 126/74 100 11/14/18 16:21 11/14/18 16:21 11/14/18 16:21 11/14/18 16:21 11/14/18 16:21 - Physical Exam General Appearance: Yes: Appropriately Dressed. No: Apparent Distress HEENT: positive: Normal Voice Respiratory/Chest: negative: Respiratory Distress Gastrointestinal/Abdominal: positive: Soft. negative: Tender Integumentary: positive: Dry, Warm Neurologic: positive: Fully Oriented, Alert, Normal Mood/Affect Moderate Sedation - Procedure Monitoring Vital Signs: Procedure Monitoring Vital Signs Temperature 98.1 F 11/14/18 16:21 Pulse Rate 98 H 11/14/18 16:21 Respiratory Rate 16 11/14/18 16:21 Blood Pressure 126/74 11/14/18 16:21 O2 Sat by Pulse Oximetry (%) 100 11/14/18 16:21 ED Treatment Course - LABORATORY CBC & Chemistry Diagram: 11/14/18 17:26 11/14/18 17:26 Medical Decision Making - Medical Decision Making 11/14/18 17:00 33-year-old female, p/w vaginal bleeding. 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 Found to have drop in hemoglobin from ~9 to ~ 8. No transfusion. States while admitted was given one dose of Lupron by Dr. Ynag and states when she was discharged 11/06, bleeding resolved, but started bleeding again several days ago, now using 7 pads/hr per patient. No abdominal pain at this time. Reports generalized fatigue for several weeks now and admits that she was prescribed iron pills but never took them. See exam Menorrhagia w/ continued fatigue H/o fibroids, s/p recent abd myomectomy No h/o transfusions Non-complaint w/ iron pills Stable and well ángel here -labs pending 11/14/18 19:09 Signed out to RENETTA Johns pending CBC. If stable, dc to start taking her iron pills and f/u with her WAXING MACHINE OPERATOR *DC/Admit/Observation/Transfer Diagnosis at time of Disposition: Fibroids Menorrhagia Qualifiers: Menorrahagia type: with irregular cycle Qualified Code(s): N92.1 - Excessive and frequent menstruation with irregular cycle - Referrals - Patient Instructions - Post Discharge Activity
[2018-11-14 17:56] LABS: INR 0.97 (0.83-1.09); PROTHROMBIN TIME (PATIENT) 11.5 SEC (9.7-13.0)
[2018-11-14 18:14] LABS: ALBUMIN 3.7 g/dl (3.4-5.0); ALK PHOS 66 U/L (45-117); ANION GAP 6 MMOL/L (8-16); BILIRUBIN,TOTAL 0.2 mg/dL (0.2-1); BLOOD UREA NITROGEN 12 mg/dL (7-18); CALCIUM 8.7 mg/dL (8.5-10.1); CHLORIDE 105 mmol/L (98-107); CO2 27 mmol/L (21-32); CREATININE 0.7 mg/dL (0.55-1.3); GLUCOSE,RANDOM 104 mg/dL (74-106); POTASSIUM 4.1 mmol/L (3.5-5.1); SGOT/AST 9 U/L (15-37); SGPT/ALT 14 U/L (13-61); SODIUM 138 mmol/L (136-145); TOT PROT 7.8 g/dl (6.4-8.2)
[2018-11-14 19:17] LABS: BASO % 0.5 % (0-2.0); EOS % 1.9 % (0-4.5); HEMATOCRIT 27.1 % (32.4-45.2); HEMOGLOBIN 8.8 GM/dL (10.7-15.3); MCH 22.6 pg (25.7-33.7); MCHC 32.6 g/dl (32.0-36.0); MEAN CELL VOLUME 69.2 fl (80-96); MONO % 6.4 % (3.8-10.2); NEUT % 67.2 % (42.8-82.8); PLATELET COUNT 666 K/MM3 (134-434); RBC 3.91 M/mm3 (3.60-5.2); RDW 18.8 % (11.6-15.6); WHITE BLOOD COUNT 8.1 K/mm3 (4.0-10.0)
--- NOTE | 2018-11-14 19:46 | PDOC ---
*Physical Exam - Vital Signs Last Vital Signs Temp Pulse Resp BP Pulse Ox 98.1 F 98 H 16 126/74 100 11/14/18 16:21 11/14/18 16:21 11/14/18 16:21 11/14/18 16:21 11/14/18 16:21 ED Treatment Course - LABORATORY CBC & Chemistry Diagram: 11/14/18 17:26 11/14/18 17:26 - ADDITIONAL ORDERS Additional order review: Laboratory Results 11/14/18 11/14/18 17:26 17:26 PT with INR 11.50 INR 0.97 Sodium 138 Potassium 4.1 Chloride 105 Carbon Dioxide 27 Anion Gap 6 L BUN 12 Creatinine 0.7 Creat Clearance w eGFR > 60 Random Glucose 104 Calcium 8.7 Total Bilirubin 0.2 AST 9 L ALT 14 Alkaline Phosphatase 66 Total Protein 7.8 Albumin 3.7 11/14/18 17:26 RBC 3.91 MCV 69.2 L MCHC 32.6 RDW 18.8 H MPV 8.0 Neutrophils % 67.2 Lymphocytes % 24.0 Monocytes % 6.4 Eosinophils % 1.9 Basophils % 0.5 - RADIOLOGY Radiology Studies Ordered: Category Date Time Status TRANSVAGINAL ULTRASOUND US [US] Stat Ultrasound 11/14/18 19:30 Ordered Medical Decision Making - Medical Decision Making 11/14/18 21:[address] aleman covering dr. Arriola. recommends sprintec as per direction 4 pills/ 4 days--> 3 pills for the next 3 days --> 2 pills for the next 2 days then 1 pill daily until pack finishes, patient to follow up with Dr. arriola tomorrow at noon. *DC/Admit/Observation/Transfer Diagnosis at time of Disposition: Fibroids Menorrhagia Qualifiers: Menorrahagia type: with irregular cycle Qualified Code(s): N92.1 - Excessive and frequent menstruation with irregular cycle - Discharge Dispostion Disposition: HOME - Prescriptions Prescriptions: Norgestimate-Ethinyl Estradiol [Sprintec 28 Day Tablet] 1 each PO DAILY #28 tablet - Referrals - Patient Instructions Printed Discharge Instructions: DI for Vaginal Bleeding Additional Instructions: return to the ER if you are soaking 2 pads per hour,abdominal pain or any worsening symptoms. use sprintec as directed. follow upwith Dr. arriola tomorrow at 12 noon - Post Discharge Activity Forms/Work/School Notes: Back to Work
--- NOTE | 2018-11-14 19:55 | PDOC ---
*Physical Exam - Vital Signs Last Vital Signs Temp Pulse Resp BP Pulse Ox 98.1 F 98 H 16 126/74 100 11/14/18 16:21 11/14/18 16:21 11/14/18 16:21 11/14/18 16:21 11/14/18 16:21 ED Treatment Course - LABORATORY CBC & Chemistry Diagram: 11/14/18 17:26 11/14/18 17:26 - ADDITIONAL ORDERS Additional order review: Laboratory Results 11/14/18 11/14/18 17:26 17:26 PT with INR 11.50 INR 0.97 Sodium 138 Potassium 4.1 Chloride 105 Carbon Dioxide 27 Anion Gap 6 L BUN 12 Creatinine 0.7 Creat Clearance w eGFR > 60 Random Glucose 104 Calcium 8.7 Total Bilirubin 0.2 AST 9 L ALT 14 Alkaline Phosphatase 66 Total Protein 7.8 Albumin 3.7 11/14/18 17:26 RBC 3.91 MCV 69.2 L MCHC 32.6 RDW 18.8 H MPV 8.0 Neutrophils % 67.2 Lymphocytes % 24.0 Monocytes % 6.4 Eosinophils % 1.9 Basophils % 0.5 Medical Decision Making - Medical Decision Making 11/14/18 19:55 Patient seen by the advanced practice provider under my direct supervision. Ancillary testing reviewed as necessary. I agree with plan as outlined by the advanced practice provider. *DC/Admit/Observation/Transfer Diagnosis at time of Disposition: Fibroids Menorrhagia Qualifiers: Menorrahagia type: with irregular cycle Qualified Code(s): N92.1 - Excessive and frequent menstruation with irregular cycle - Referrals - Patient Instructions - Post Discharge Activity
== END 2018-11-14 21:40 | disposition home or self-care (01) ==
LOC: JER 16:11
DX: D25.9 Leiomyoma of uterus, unspecified (principal); N92.1 Excessive and frequent menstruation with irregular cycle
CPT/HCPCS: 36415; 76830-TC; 80053; 85025; 85610; 86850; 86900; 86901; 99282-25

== ENCOUNTER 2019-06-12 17:26 | Emergency (ER) | payer BC ==
[2019-06-12 17:31] VITALS: BMI 25.4
--- NOTE | 2019-06-12 17:31 | PDOC ---
Rapid Medical Evaluation Chief Complaint: Nausea/Vomiting Time Seen by Provider: 06/12/19 17:29 Medical Evaluation: Allergies Allergy/AdvReac Type Severity Reaction Status Date / Time latex Allergy Mild "itchy and Verified 11/14/18 16:21 hives" No Known Drug Allergies Allergy Verified 11/14/18 16:21 SEAFOOD Allergy Mild "airway Uncoded 11/14/18 16:21 closes up" 06/12/19 17:29 Pt presents for vomiting since yesterday. Denies fevers, diarrhea. No recent travel. Pt with lower abdominal pain, however she states she is on her menstrual and this pain is normal for her Exam: TTP LLQ Orders: lab, IV insert, urine Pt to proceed to the ER for further evaluation Discharge Disposition - Diagnosis Vomiting Qualifiers: Vomiting type: unspecified Vomiting Intractability: unspecified Nausea presence : unspecified Qualified Code(s): R11.10 - Vomiting, unspecified - Referrals - Patient Instructions - Post Discharge Activity
--- NOTE | 2019-06-12 17:57 | PDOC ---
History of Present Illness - General Chief Complaint: Nausea/Vomiting Stated Complaint: VOMITING Time Seen by Provider: 06/12/19 17:29 Past History - Past Medical History Allergies/Adverse Reactions: Allergies Allergy/AdvReac Type Severity Reaction Status Date / Time latex Allergy Mild "itchy and Verified 06/12/19 17:31 hives" No Known Drug Allergies Allergy Verified 06/12/19 17:31 SEAFOOD Allergy Mild "airway Uncoded 06/12/19 17:31 closes up" Home Medications: Ambulatory Orders Ferrous Sulfate/Vit C/FA [Folitab 500 Caplet -] 1 each PO DAILY #30 tablet.er Norgestimate-Ethinyl Estradiol [Sprintec 28 Day Tablet] 1 each PO DAILY #28 tablet 11/14/18 Anemia: Yes Asthma: No Cancer: No Cardiac Disorders: No CVA: No COPD: No CHF: No Dementia: No Diabetes: No GI Disorders: No Disorders: No HTN: No Hypercholesterolemia: No Liver Disease: No Seizures: No Thyroid Disease: No - Reproductive History (#): 1 Para: 0 Cervical CA: No Dysfunctional Uterine Bleeding: No Ectopic : No Endometrial CA: No Polycystic Ovaries: No Therapeutic (s) & number: Yes Tubal Ligation: No Spontaneous : 0 - Immunization History Immunization Up to Date: Yes - Suicide/Smoking/Psychosocial Hx Smoking Status: Yes Smoking History: Current every day smoker Have you smoked in the past 12 months: Yes Number of Cigarettes Smoked Daily: 3 Information on smoking cessation initiated: No 'Breaking Loose' booklet given: 09/28/18 Hx Alcohol Use: No Drug/Substance Use Hx: No Substance Use Type: Alcohol Hx Substance Use Treatment: No Review of Systems - Review of Systems Able to Perform ROS?: Yes Constitutional: Yes: Weakness HEENTM: No: Symptoms Reported, See HPI, Eye Pain, Blurred Vision, Tearing, Recent change in vision, Double Vision, Cataracts, Ear Pain, Ocular Prothesis, Ear Discharge, Nose Pain, Nose Congestion, Tinnitus, Nose Bleeding, Hearing Loss , Throat Pain, Throat Swelling, Mouth Pain, Dental Problems, Difficulty Swallowing, Mouth Swelling, Other Respiratory: Yes: SOB with Exertion Cardiac (ROS): Yes: Chest Tightness ABD/GI: Yes: Nausea, Vomiting : Yes: Other (vaginal bleeding,pelvic discomfort) Musculoskeletal: No: Symptoms Reported, See HPI, Back Pain, Gout, Joint Pain, Joint Swelling, Muscle Pain, Muscle Weakness, Neck Pain, Joint Stiffness, Other Integumentary: No: See HPI, Bruising, Change in Color, Dryness, Erythema, Flushing, Lesions, Lumps, Pallor, Pruritus, Rash, Sweating, Other Neurological: Yes: Dizziness (she felt dizzy yesterday) *Physical Exam - Vital Signs Last Vital Signs Temp Pulse Resp BP Pulse Ox 98 F 98 H 18 133/80 99 06/12/19 17:28 06/12/19 17:28 06/12/19 17:28 06/12/19 17:28 06/12/19 17:28 - Physical Exam General Appearance: Yes: Nourished HEENT: positive: Normal Voice Neck: positive: Supple Respiratory/Chest: positive: Lungs Clear, Normal Breath Sounds Cardiovascular: positive: Regular Rhythm, Regular Rate Female Pelvic Exam: positive: adnexal tenderness (mild left pelvic pain), vaginal bleeding Gastrointestinal/Abdominal: positive: Normal Bowel Sounds, Flat, Soft Musculoskeletal: positive: Normal Inspection Extremity: positive: Normal Inspection, Normal Range of Motion Integumentary: positive: Normal Color, Warm Neurologic: positive: Fully Oriented, Alert, Motor Strength 5/5 ED Treatment Course - LABORATORY CBC & Chemistry Diagram: 06/12/19 17:46 06/12/19 17:46 Medical Decision Making - Medical Decision Making 06/12/19 18:42 34-year-old male female presents with complaints of 2 days of nausea and vomiting Review of systems includes positive intermittent exertional dyspnea for several months, she was dizzy yesterday. She has heavy menstrual periods and chronic anemia Past surgical history September 2018 she had a myomectomy for fibroids, Prior cosmetic surgery 06/12/19 23:43 negative test UA negative. No sign of anemia. There is a slight leukocytosis Benign abdominal exam. Ultrasound shows a fibroid uterus but there was no evidence of torsion or suspicious masses Patient has not been vomiting during her observation. Impression pelvic pain Patient already has an appointment with her key person for follow-up. She was encouraged to return for any persistent symptoms and I discussed the signs and symptoms of appendicitis and she was told to return for any rt sided abd pain or further nausea and vomiting 06/13/19 02:03 *DC/Admit/Observation/Transfer Diagnosis at time of Disposition: Vaginal bleeding, Fibroids, Pelvic pain Nausea and vomiting Qualifiers: Vomiting type: unspecified Vomiting Intractability: non-intractable Qualified Code(s): R11.2 - Nausea with vomiting, unspecified - Discharge Dispostion Disposition: HOME Condition at time of disposition: Stable - Referrals - Patient Instructions Printed Discharge Instructions: DI for Uterine Fibroids, DI for Nausea -- Adult , DI for Vomiting -- Adult, DI for Pelvic Pain Additional Instructions: please follow up with your key person return for any persistent or worsening symptoms - Post Discharge Activity
[2019-06-12 18:00] LABS: BASO % 1.2 % (0-2.0); EOS % 1.5 % (0-4.5); HEMATOCRIT 28.5 % (32.4-45.2); HEMOGLOBIN 8.7 GM/dL (10.7-15.3); MCHC 30.5 g/dl (32.0-36.0); MEAN CELL VOLUME 60.2 fl (80-96); MEAN PLT VOLUME 8.4 fl (7.5-11.1); NEUT % 80.3 % (42.8-82.8); PLATELET COUNT 375 K/MM3 (134-434); RBC 4.73 M/mm3 (3.60-5.2); WHITE BLOOD COUNT 13.6 K/mm3 (4.0-10.0)
[2019-06-12 18:03] LABS: MCH 18.3 pg (25.7-33.7)
[2019-06-12 18:24] LABS: ALBUMIN 3.9 g/dl (3.4-5.0); BILIRUBIN,TOTAL 0.3 mg/dL (0.2-1); BLOOD UREA NITROGEN 11.2 mg/dL (7-18); CALCIUM 9.4 mg/dL (8.5-10.1); CREATININE 0.8 mg/dL (0.55-1.3); POTASSIUM 4.4 mmol/L (3.5-5.1); TOT PROT 7.8 g/dl (6.4-8.2)
[2019-06-12] MEDS ORDERED: SODIUM CHLORIDE 1,000 ML IV STA (18:30)
[2019-06-12] MEDS ORDERED: ONDANSETRON 4 MG/2 ML VIAL IVPB ONE (18:30)
[2019-06-12 18:32] LABS: ANISOCYTOSIS 1+; PLATELET ESTIMATE ADEQUATE
[2019-06-12] MEDS ORDERED: ONDANSETRON 4 MG/2 ML VIAL ONE (18:39)
[2019-06-12 19:24] LABS: EPI CELLS 4.1 /HPF (0-5/HPF); HYALINE CASTS 1 /lpf (0-8); PH,URINE 6.5 (5.0-8.0); URINE APPEARANCE CLEAR; URINE BACTERIA 5.7 /hpf (NEGATIVE); URINE BILIRUBIN NEGATIVE (NEGATIVE); URINE COLOR YELLOW; URINE GLUCOSE (UA) NEGATIVE (NEGATIVE); URINE KETONE NEGATIVE (NEGATIVE); URINE LEUK ESTERASE 2+ (NEGATIVE); URINE NITRITE NEGATIVE (NEGATIVE); URINE PROTEIN NEGATIVE (NEGATIVE); URINE UROBILINOGEN 0.2 mg/dL (0.2-1.0); URINE WBC 13 /hpf (0-5)
[2019-06-12 21:37] VITALS: BP 117/90; PULSE 74; TEMP 98.1
[2019-06-12 23:11] LABS: URINE RBC 157.3 /hpf (0-4); YEAST NONE SEEN (NEGATIVE)
--- NOTE | 2019-06-13 10:42 | EKG ---
Test Reason : Blood Pressure : / mmHG Vent. Rate : 077 BPM Atrial Rate : 077 BPM P-R Int : 122 ms QRS Dur : 078 ms QT Int : 398 ms P-R-T Axes : 055 068 050 degrees QTc Int : 450 ms NORMAL SINUS RHYTHM NORMAL ECG WHEN COMPARED WITH ECG OF 18-APR-2014 19:52, NO SIGNIFICANT CHANGE WAS FOUND Confirmed by RENEA FRAUSTO MD ([id number]) on 06/13/2019 10:42:37 AM Referred By: Confirmed By:RENEA FRAUSTO MD
== END 2019-06-12 23:48 | disposition home or self-care (01) ==
LOC: JER 17:26
PROC: 3E0337Z Introduction of Electrolytic and Water Balance Substance into Peripheral Vein, Percutaneous Approach (ICD-10-PCS; principal; 2019-06-12)
PROC: 3E033GC Introduction of Other Therapeutic Substance into Peripheral Vein, Percutaneous Approach (ICD-10-PCS; 2019-06-12)
DX: D25.9 Leiomyoma of uterus, unspecified (principal); R10.2 Pelvic and perineal pain
CPT/HCPCS: 36415; 76830-TC; 80053; 81003; 84703; 85025; 87077; 87086; 93005; 93010; 99283-25; J7030

== ENCOUNTER 2019-08-09 19:43 | Emergency (ER) | payer BC ==
[2019-08-09 19:49] VITALS: BMI 27.3
[2019-08-09] MEDS ORDERED: SODIUM CHLORIDE 1,000 ML IV STA (19:49)
--- NOTE | 2019-08-09 19:49 | PDOC ---
Rapid Medical Evaluation Chief Complaint: Syncope/Near Syncope Time Seen by Provider: 08/09/19 19:46 Medical Evaluation: Allergies Allergy/AdvReac Type Severity Reaction Status Date / Time latex Allergy Mild "itchy and Verified 06/12/19 17:31 hives" No Known Drug Allergies Allergy Verified 06/12/19 17:31 SEAFOOD Allergy Mild "airway Uncoded 06/12/19 17:31 closes up" 08/09/19 19:47 CC: heavy vaginal bleeding- soaked through a tampon in less than 5 minutes. + syncopal episode today PE: MM pallor noted. Orders: anemia Patient will proceed to ED for further evaluation. 08/09/19 19:48 Discharge Disposition - Diagnosis Vaginal bleeding - Referrals - Patient Instructions - Post Discharge Activity
[2019-08-09 20:46] LABS: EOS % 0.8 % (0-4.5); HEMATOCRIT 27.8 % (32.4-45.2); HEMOGLOBIN 8.3 GM/dL (10.7-15.3); MEAN CELL VOLUME 59.6 fl (80-96); MONO % 6.1 % (3.8-10.2); NEUT % 79.1 % (42.8-82.8); PLATELET COUNT 417 K/MM3 (134-434); RBC 4.66 M/mm3 (3.60-5.2); RDW 17.6 % (11.6-15.6); WHITE BLOOD COUNT 12.9 K/mm3 (4.0-10.0)
[2019-08-09 20:47] LABS: MCH 17.9 pg (25.7-33.7)
[2019-08-09 20:55] LABS: INR 0.99 (0.83-1.09); PROTHROMBIN TIME (PATIENT) 11.7 SEC (9.7-13.0)
[2019-08-09 21:15] LABS: ALBUMIN 3.5 g/dl (3.4-5.0); ALK PHOS 62 U/L (45-117); ANION GAP 8 MMOL/L (8-16); BILIRUBIN,TOTAL 0.3 mg/dL (0.2-1); BLOOD UREA NITROGEN 11.8 mg/dL (7-18); CALCIUM 9.3 mg/dL (8.5-10.1); CHLORIDE 106 mmol/L (98-107); CO2 26 mmol/L (21-32); CREATININE 0.8 mg/dL (0.55-1.3); GLUCOSE,RANDOM 92 mg/dL (74-106); POTASSIUM 3.5 mmol/L (3.5-5.1); SGOT/AST 11 U/L (15-37); SGPT/ALT 14 U/L (13-61); SODIUM 139 mmol/L (136-145); TOT PROT 7.9 g/dl (6.4-8.2)
--- NOTE | 2019-08-09 21:33 | PDOC ---
History of Present Illness - General Chief Complaint: Syncope/Near Syncope Stated Complaint: VAGINAL BLEEDING Time Seen by Provider: 08/09/19 19:46 - History of Present Illness Initial Comments: 08/09/19 21:22 34y/o F hx of fibroids s/p myomectomy (09/2018) presents to the ED with 3 wks of bleeding and passing large clots. She was last seen at the end of 2018 for similiar complaint accompanied by nausea and vomiting. Bleeding eventually resolved and she was started on OCP's by her OB Dr. Yang 4 weeks ago. She began bleeding 1 wk after starting ocp use. Bleeding has progressed from vaginal spotting to heavy bleeding approx. 9 tampons (super) a day. She discontinued her OCP use on Tuesday at OB's request, bleeding still persist. She had an episode of lightheadedness this morning and passed out for a few minutes. She hit her head on a carpeted floor. She has had non-bloody emesis x2 s/p fall and nausea. She endorses subjective fever at home, lower abdominal pain , and generalized weakness and fatigue. She denies dysuria, burning, Past History - Past Medical History Allergies/Adverse Reactions: Allergies Allergy/AdvReac Type Severity Reaction Status Date / Time latex Allergy Mild "itchy and Verified 08/09/19 19:50 hives" No Known Drug Allergies Allergy Verified 08/09/19 19:50 SEAFOOD Allergy Mild "airway Uncoded 08/09/19 19:50 closes up" Home Medications: Ambulatory Orders Norethindrone-E.estradiol-Iron [Junel Fe 1 mg-20 Mcg Tablet] 1 tab PO DAILY Ferrous Sulfate [Iron] 325 mg PO DAILY #30 tablet 08/10/19 Anemia: Yes Asthma: No Cancer: No Cardiac Disorders: No CVA: No COPD: No CHF: No Dementia: No Diabetes: No GI Disorders: No Disorders: No HTN: No Hypercholesterolemia: No Liver Disease: No Seizures: No Thyroid Disease: No - Reproductive History (#): 1 Para: 0 Cervical CA: No Dysfunctional Uterine Bleeding: No Ectopic : No Endometrial CA: No Polycystic Ovaries: No Therapeutic (s) & number: Yes Tubal Ligation: No Spontaneous : 0 - Immunization History Immunization Up to Date: Yes - Psycho Social/Smoking Cessation Hx Smoking Status: Yes Smoking History: Never smoked Have you smoked in the past 12 months: Yes Number of Cigarettes Smoked Daily: 3 'Breaking Loose' booklet given: 09/28/18 Hx Alcohol Use: No Drug/Substance Use Hx: No Substance Use Type: Alcohol Hx Substance Use Treatment: No Review of Systems - Review of Systems Constitutional: No: Chills, Fever HEENTM: No: Eye Pain, Blurred Vision Respiratory: Yes: Cough, Wheezing Cardiac (ROS): Yes: Lightheadedness. No: Chest Pain ABD/GI: Yes: Nausea, Vomiting. No: Diarrhea : No: Burning, Dysuria Musculoskeletal: No: Back Pain, Joint Pain Integumentary: No: Bruising, Change in Color Neurological: No: Tingling, Unsteady Gait Psychiatric: No: Sleep Pattern Change, Change in Appetite *Physical Exam - Vital Signs Last Vital Signs Temp Pulse Resp BP Pulse Ox 98.1 F 105 H 18 143/88 100 08/09/19 19:46 08/09/19 19:46 08/09/19 19:46 08/09/19 19:46 08/09/19 19:46 - Physical Exam Comments: 08/09/19 21:35 PE: GENERAL: Awake, alert, and fully oriented, in no acute distress HEAD: No signs of trauma, normocephalic, atraumatic EYES: PERRLA, EOMI, sclera anicteric, pale conjunctiva ENT: Auricles normal inspection, hearing grossly normal, nares patent, oropharynx clear without exudates. Moist mucosa NECK: Normal ROM, supple, no lymphadenopathy, JVD, or masses LUNGS: No distress, speaks full sentences, clear to auscultation bilaterally HEART: Regular rate and rhythm, normal S1 and S2, no murmurs, rubs or gallops, peripheral pulses normal and equal bilaterally. ABDOMEN: Normoactive bowel sounds. LLQ tenderness No guarding, no rebound. No masses PELVIC EXAM: cervical os closed. some pooling in the vaginal tract. bilateral adnexal tenderness right greater than left. EXTREMITIES : Normal inspection, Normal range of motion, no edema. No clubbing or cyanosis NEUROLOGICAL: Cranial nerves II through XII grossly intact. Normal speech, normal gait, no focal sensorimotor deficits SKIN: Warm, Dry, normal turgor, no rashes or lesions noted 08/09/19 21:46 ED Treatment Course - LABORATORY CBC & Chemistry Diagram: 08/10/19 02:35 08/09/19 20:23 - ADDITIONAL ORDERS Additional order review: Laboratory Results 08/09/19 08/09/19 20:23 20:23 PT with INR 11.70 INR 0.99 Sodium 139 Potassium 3.5 Chloride 106 Carbon Dioxide 26 Anion Gap 8 BUN 11.8 Creatinine 0.8 Est GFR (CKD-EPI)AfAm 111.48 Est GFR (CKD-EPI)NonAf 96.19 Random Glucose 92 Calcium 9.3 Total Bilirubin 0.3 AST 11 L ALT 14 Alkaline Phosphatase 62 Creatine Kinase 96 Troponin I < 0.02 Total Protein 7.9 Albumin 3.5 08/09/19 20:23 RBC 4.66 MCV 59.6 L MCHC 30.0 L RDW 17.6 H MPV 8.0 Neutrophils % 79.1 Lymphocytes % 13.0 Monocytes % 6.1 Eosinophils % 0.8 Basophils % 1.0 Medical Decision Making - Medical Decision Making 08/09/19 21:50 34y/o F hx of fibroids s/p myomectomy (09/2018) presents to the ED with 3 wks of bleeding and passing large clots. EKG, CBC, CMP, TSH, TVUS, EKG: normal sinus rhythm , normal EKG 08/09/19 23:56 Per 's recommendations Repeat h/h at 6hr [facility] If findings of all labwork and testing unremarkable Follow up with [facility] iron tablets as oupatient and follow up on Tuesday make sure she can tolerate po before discharge TVUS fibroid uterus with a small right ovarian cyst. no free pelvic fluid collection 08/10/19 01:[address] IMPRESSION: No acute traumatic intracranial or osseous abnormality. Discharge - Discharge Information Problems reviewed: Yes Clinical Impression/Diagnosis: Vaginal bleeding Condition: Stable Disposition: HOME - Admission No - Additional Discharge Information Prescriptions: Ferrous Sulfate [Iron] 325 mg PO DAILY #30 tablet - Follow up/Referral Referrals: Ayaan Yang MD [Staff Physician] - - Patient Discharge Instructions Patient Printed Discharge Instructions: DI for Vaginal Bleeding Additional Instructions: You were seen in the ER for vaginal bleeding You have been prescribed iron pills to take as supplements. Take them as prescribed Keep your follow up appointment with your boning room worker Dr. Yang. Return to the ER if your bleeding gets worse over the next few days YOu develop fevers, chills, burning with urination Take tylenol for pain. Follow all label instructions. - Post Discharge Activity
--- NOTE | 2019-08-09 21:52 | PDOC ---
Documentation entered by Alyssa Gonzales SCRIBE, acting as scribe for Mindy Us DO. Mindy Us, DO: This documentation has been prepared by the Janet wood Adrianna, SCRIBE, under my direction and personally reviewed by me in its entirety. I confirm that the documentation accurately reflects all work, treatment, procedures, and medical decision making performed by me. Attending Attestation - Resident Resident Name: MaryArchanajoseph - ED Attending Attestation I have performed the following: I have examined & evaluated the patient, The case was reviewed & discussed with the resident, I agree w/resident's findings & plan, Exceptions are as noted - HPI HPI: The patient is a 34 year old female, with a significant PMH of anemia and fibroids (s/p myomectomy 1 year ago), who presents to the ED for evaluation of vaginal bleeding for 3 weeks, and syncopal episode today. Patient endorses vaginal bleeding with large clots for the past 3 weeks. She was seen in the ED 2 months ago for a similar complaint, which eventually self-resolved. Her OB put her on oral contraceptives 4 weeks ago, but the bleeding returned after 1 week of being on control. She reports soaking through ~9 tampons a day, and endorses lower abdominal cramping. Patient reports feeling lightheaded earlier today, followed by falling and passing out when trying to tack picker something on the floor. She endorses hitting her head on the carpeted floor. Patient reports two episodes of nausea and NBNB vomit following the episode. Allergies: Latex, seafood Surgical History: myomectomy Social History: Current everyday smoker (3 cigarettes per day). Denies EtOH or illicit drug use OB: Dr. Polanco - Physicial Exam PE: Constitutional: Awake, alert, oriented. No acute distress. Head: Normocephalic. Atraumatic Eyes: PERRL. EOMI. Conjunctivae are not pale. ENT: Mucous membranes are moist and intact. Posterior pharynx without exudates or erythema. Uvula midline. Neck: Supple. Full ROM. No lymphadenopathy. Cardiovascular: Regular rate. Regular rhythm. S1, S2 regular. Distal pulses are 2+ and symmetric. Pulmonary/Chest: No evidence of respiratory distress. Clear to auscultation bilaterally No wheezing, rales or rhonchi. Abdominal: +Mild suprapubic tenderness to palpation. Soft and non-distended. No rebound, guarding or rigidity. No organomegaly. No palpable masses. Good bowel sounds. Back: No CVA tenderness. Musculoskeletal: No edema. No cyanosis. No clubbing. Full range of motion in all extremities. Nocalf tenderness. Radial/pedal pulses are intact and 2+ bilaterally Skin: Skin is warm and dry. No petechiae. No purpura. Neurological: Alert and oriented to person, place, and time. Cranial nerves II -XII are grossly intact. Normal speech. Strength is grossly symmetric. No sensory deficits. Psychiatric: Good eye contact. Normal interaction, affect and behavior. - Medical Decision Making 08/09/19 21:50 I, Dr. Mindy Us, DO, attest that this document has been prepared under my direction and personally reviewed by me in its entirety. I further attest, that it accurately reflects all work, treatment, procedures and medical decision -making performed by me. a/p: 34yo female with hx of heavy vaginal bleeding and hx of myomectomy about a year ago with vaginal bleedin x 3 weeks -had start ocp, but still with heavy bleeding, about 9 tampons a day -stopped ocp per dr. polanco on tuesday -passing clots -today with syncopal episode - bent over to pick something up and passed out -will send labs, h/h, pelvic exam per resident, tvus, head ct -neuro intact -will monitor and reassess 08/09/19 21:51 hgb at baseline pt to ultrasound and ct 08/09/19 22:22 hgb at baseline 08/09/19 22:22 low mcv 08/09/19 23:01 fibroids and ovarian cyst on ultrasound case discussed with Dr. Polanco - states he has offered the patient a hysterectomy, but she may want to have a child. Recommends repeat h/h at the 6hr [facility], if stable she can dc home and follow up with him on Tuesday. Recommends adding iron tabs 08/09/19 23:26 cxr clear 08/10/19 00:[address] neg will repeat h/h 08/10/19 02:01 pt signed out to the oncoming ED team pending repeat h/h and ua ED Treatment Course - LABORATORY CBC & Chemistry Diagram: 08/09/19 20:23 08/09/19 20:23 - ADDITIONAL ORDERS Additional order review: Laboratory Results 08/09/19 08/09/19 08/09/19 20:23 20:23 20:23 PT with INR 11.70 INR 0.99 Sodium Potassium Chloride Carbon Dioxide Anion Gap BUN Creatinine Est GFR (CKD-EPI)AfAm Est GFR (CKD-EPI)NonAf Random Glucose Calcium Total Bilirubin AST ALT Alkaline Phosphatase Creatine Kinase Troponin I Total Protein Albumin TSH Serum , Qual Negative Blood Type O POSITIVE Antibody Screen Negative 08/09/19 20:23 PT with INR INR Sodium 139 Potassium 3.5 Chloride 106 Carbon Dioxide 26 Anion Gap 8 BUN 11.8 Creatinine 0.8 Est GFR (CKD-EPI)AfAm 111.48 Est GFR (CKD-EPI)NonAf 96.19 Random Glucose 92 Calcium 9.3 Total Bilirubin 0.3 AST 11 L ALT 14 Alkaline Phosphatase 62 Creatine Kinase 96 Troponin I < 0.02 Total Protein 7.9 Albumin 3.5 TSH 0.97 Serum , Qual Blood Type Antibody Screen 08/09/19 20:23 RBC 4.66 MCV 59.6 L MCHC 30.0 L RDW 17.6 H MPV 8.0 Neutrophils % 79.1 Lymphocytes % 13.0 Monocytes % 6.1 Eosinophils % 0.8 Basophils % 1.0 - RADIOLOGY Radiograph Interpretation: EXAM#: TYPE/EXAM: RESULT: [id number] US/TRANSVAGINAL ULTRASOUND US HISTORY PROVIDED: Vaginal bleeding IMPRESSION: Fibroid uterus and small right ovarian cyst. Reported By: Víctor Young MD 08/09/19 22:31 EXAM: HEAD CT WITHOUT CONTRAST HISTORY: Trauma. IMPRESSION: No acute traumatic intracranial or osseous abnormality. Reported By: Dr. Carrie Tinajero 08/10/2019 00:25 EST - Medications Given in the ED: ED Medications Discontinued Medications Generic Name Dose Route Start Last Admin Trade Name Freq PRN Reason Stop Dose Admin Sodium Chloride 1,000 mls @ 1,000 mls/hr 08/09/19 19:49 08/09/19 21:40 Normal Saline - IV 08/09/19 20:48 1,000 mls/hr ASDIR STA Administration
[2019-08-09 21:56] LABS: ANISOCYTOSIS 1+; PLATELET ESTIMATE NORMAL
[2019-08-10 02:59] LABS: BASO % 0.9 % (0-2.0); EOS % 2.3 % (0-4.5); HEMATOCRIT 25.8 % (32.4-45.2); HEMOGLOBIN 7.9 GM/dL (10.7-15.3); LYMPH % 23.7 % (8-40); MCHC 30.6 g/dl (32.0-36.0); MEAN CELL VOLUME 60.1 fl (80-96); MEAN PLT VOLUME 8.2 fl (7.5-11.1); MONO % 6.3 % (3.8-10.2); NEUT % 66.8 % (42.8-82.8); PLATELET COUNT 398 K/MM3 (134-434); RDW 17.6 % (11.6-15.6); WHITE BLOOD COUNT 10.7 K/mm3 (4.0-10.0)
[2019-08-10 03:02] LABS: MCH 18.4 pg (25.7-33.7)
[2019-08-10 03:02] LABS: EPI CELLS 3.8 /HPF (0-5/HPF); HYALINE CASTS 3 /lpf (0-8); URINE APPEARANCE CLEAR; URINE BACTERIA 23.4 /hpf (NEGATIVE); URINE BILIRUBIN NEGATIVE (NEGATIVE); URINE COLOR YELLOW; URINE GLUCOSE (UA) NEGATIVE (NEGATIVE); URINE KETONE NEGATIVE (NEGATIVE); URINE LEUK ESTERASE 1+ (NEGATIVE); URINE NITRITE NEGATIVE (NEGATIVE); URINE PROTEIN NEGATIVE (NEGATIVE); URINE RBC 141 /hpf (0-4); URINE UROBILINOGEN 0.2 mg/dL (0.2-1.0); URINE WBC 15 /hpf (0-5)
[2019-08-10 03:49] VITALS: BP 126/75; PULSE 83; TEMP 98.2
--- NOTE | 2019-08-10 13:29 | EKG ---
Test Reason : Blood Pressure : / mmHG Vent. Rate : 092 BPM Atrial Rate : 092 BPM P-R Int : 124 ms QRS Dur : 082 ms QT Int : 374 ms P-R-T Axes : 069 073 059 degrees QTc Int : 462 ms NORMAL SINUS RHYTHM NORMAL ECG WHEN COMPARED WITH ECG OF 12-JUN-2019 18:50, NO SIGNIFICANT CHANGE WAS FOUND Confirmed by SUMMER LOPES MD ([id number]) on 08/10/2019 1:29:01 PM Referred By: Confirmed By:SUMMER LOPES MD
== END 2019-08-10 03:46 | disposition home or self-care (01) ==
LOC: JER 19:43
PROC: 3E0337Z Introduction of Electrolytic and Water Balance Substance into Peripheral Vein, Percutaneous Approach (ICD-10-PCS; principal; 2019-08-09)
DX: D25.9 Leiomyoma of uterus, unspecified (principal); N83.201 Unspecified ovarian cyst, right side; R55 Syncope and collapse; S09.8XXA Other specified injuries of head, initial encounter; W19.XXXA Unspecified fall, initial encounter; Y93.89 Activity, other specified; Y92.89 Other specified places as the place of occurrence of the external cause; Y99.8 Other external cause status; Z91.013 Allergy to seafood
CPT/HCPCS: 36415; 70450-TC; 71045-TC-FY; 76830-TC; 80053; 81003; 82550; 84443; 84484; 84703; 85025; 85610; 86850; 86900; 86901; 93005; 93010; 99283-25; J7030

== ENCOUNTER 2019-10-17 07:30 | Inpatient (IN) | payer BC ==
[2019-10-17] MEDS ORDERED: SODIUM CHLORIDE 1,000 ML IV STA ×2 (07:58→12:50)
--- NOTE | 2019-10-17 07:58 | PDOC ---
History of Present Illness - General Chief Complaint: Nausea/Vomiting Stated Complaint: FEVER,HEADACHE,VOMITING Time Seen by Provider: 10/17/19 07:54 History Source: Patient - History of Present Illness Timing/Duration: other Associated Symptoms: reports: fever/chills, nausea/vomiting, weakness Past History - Past Medical History Allergies/Adverse Reactions: Allergies Allergy/AdvReac Type Severity Reaction Status Date / Time latex Allergy Mild "itchy and Verified 08/09/19 19:50 hives" No Known Drug Allergies Allergy Verified 08/09/19 19:50 SEAFOOD Allergy Mild "airway Uncoded 08/09/19 19:50 closes up" Home Medications: Ambulatory Orders Norethindrone-E.estradiol-Iron [Junel Fe 1 mg-20 Mcg Tablet] 1 tab PO DAILY Ferrous Sulfate 325 mg PO DAILY #30 tablet 10/17/19 Ferrous Sulfate [Iron] 325 mg PO DAILY #30 tablet 10/17/19 Sulfamethoxazole/Trimethoprim [Bactrim Ds Tablet] 1 each PO BID #14 tablet 10/17 Sulfamethoxazole/Trimethoprim [Bactrim Ds Tablet] 1 each PO BID #14 tablet 10/17 Anemia: Yes Asthma: No Cancer: No Cardiac Disorders: No CVA: No COPD: No CHF: No Dementia: No Diabetes: No GI Disorders: No Disorders: No HTN: No Hypercholesterolemia: No Liver Disease: No Seizures: No Thyroid Disease: No - Reproductive History (#): 1 Para: 0 Cervical CA: No Dysfunctional Uterine Bleeding: No Ectopic : No Endometrial CA: No Polycystic Ovaries: No Therapeutic (s) & number: Yes Tubal Ligation: No Spontaneous : 0 - Immunization History Immunization Up to Date: Yes - Psycho Social/Smoking Cessation Hx Smoking Status: Yes Smoking History: Current every day smoker Have you smoked in the past 12 months: Yes Number of Cigarettes Smoked Daily: 2 Information on smoking cessation initiated: No 'Breaking Loose' booklet given: 09/28/18 Hx Alcohol Use: No Drug/Substance Use Hx: No Substance Use Type: Alcohol Hx Substance Use Treatment: No Review of Systems - Review of Systems Constitutional: Yes: Chills, Fever, Malaise HEENTM: No: Ear Pain, Throat Pain Respiratory: No: Cough, Shortness of Breath Cardiac (ROS): No: Chest Pain ABD/GI: Yes: Nausea, Vomiting, Abdominal cramping. No: Diarrhea : No: Dysuria Neurological: No: Headache, Dizziness *Physical Exam - Vital Signs Last Vital Signs Temp Pulse Resp BP Pulse Ox 101.2 F H 103 H 18 102/57 L 100 10/17/19 07:39 10/17/19 07:39 10/17/19 07:39 10/17/19 07:39 10/17/19 07:39 - Physical Exam 10/17/19 09:48 ill appearing General Appearance: Yes: Appropriately Dressed HEENT: positive: Normal ENT Inspection, Normal Voice, TMs Normal, Pharynx Normal. negative: Scleral Icterus (R), Scleral Icterus (L) Neck: positive: Supple Respiratory/Chest: positive: Lungs Clear, Normal Breath Sounds. negative: Respiratory Distress Cardiovascular: positive: Regular Rate, S1, S2 Gastrointestinal/Abdominal: positive: Normal Bowel Sounds, Tender (poorly localized ttp), Soft. negative: Distended, Guarding, Rebound Musculoskeletal: negative: CVA Tenderness Integumentary: positive: Dry, Warm Neurologic: positive: Fully Oriented, Alert, Normal Mood/Affect ED Treatment Course - LABORATORY CBC & Chemistry Diagram: 10/17/19 08:04 10/17/19 08:04 Medical Decision Making - Medical Decision Making 10/17/19 07:55 34 yo F, s/p myomectomy, 1 yr ago, anemia, was on iron infusions but lost to follow-up, here with malaise, with fever, chills ,nausea, vomiting and diffuse abdominal pain x4 days. States she is unable to tolerate p.o. No diarrhea. No sick contacts or recent travel. see exam ? Viral illness, r/o influenza -antipyretic -zofran -IVF -labs -reassess 10/17/19 09:49 WBC 17. On reassessment, patient reports feeling better with meds. Has poorly localized tenderness on abdominal exam with ? ttp over McBurney's. Will get CT abdomen pelvis at this time. Labs also remarkable for hemoglobin of 7.3. Based on chart review, since 10/2018, patient's baseline hemoglobin have been ~7-8. Denies history of blood transfusion but was on iron transfusion and then lost to follow-up. States she was also taking iron pills in the past but that they were not improving her anemia so has since discontinued. States she just fear finished her menses. Patient also reports chronic fatigue but no acute worsening and no shortness of breath or chest pain. Has upcoming [employer] appointment next week. 10/17/19 11:36 CT with no findings suggestive of acute appendicitis. There are however, several findings including enlarged uterus that could be due to fibroids vs adenomyosis per report (pt has known h/o fibroids). Also seen are some right ovarian follicles. Mild fatty liver and splenomegaly w/ gallstones, no e/o acute delmy. There is also interval mild concentric wall thickening of proximal small bowel in the LUQ since study in 10/2018. There is focal density in the lower pole of the left kidney that could suggest pyelo in the appropriate clinical setting. Patient informed of findings and now states she may have some pressure when urinating with some urinary frequency. UA w/ >100 keya and 1 + LE. Of note, no CVA tenderness. Will consider treating for possible pyelo. No prior sensitivities on record here. Will give 1 dose ceftriaxone here and dc w/ abx if discharged. Reguarding anemia, as hemoglobin baseline for patient and not acutely symptomatic from anemia standpoint, will restart on iron and have patient follow-up with her [employer] at scheduled appointment next week as d/w Dr Banks. Reasons to return to ER will be discussed with patient 10/17/19 12:49 While waiting for reassessment and discharge, I was called over to bedside as patient developed sudden onset of Rigors. States all of a sudden she just started shaking per patient. Rpt temp 98 w/ HR 110 and BP 130/80. Will admit at this time 10/17/19 13:22 Pt signed out to admitting team 10/17/19 13:39 Per nurse, patient spiked fever to 102F. IV Motrin in progress 10/17/19 14:29 Based on clinical scenario, patient met septic protocol at 1:20pm. So far all orders and pancultures have been sent. Currently getting fluid administration @ 30 cc/kg's. We will add Zosyn at this time for broad-spectrum coverage. Willalso send off 2nd lactate at 4 hours from time first lactate was sent. Admitting team aware of update 10/17/19 16:00 Signed out to CLARICE Jiang pending repeat lactate. Discharge - Discharge Information Problems reviewed: Yes Clinical Impression/Diagnosis: Fever Qualifiers: Fever type: unspecified Qualified Code(s): R50.9 - Fever, unspecified Nausea and vomiting Qualifiers: Vomiting type: unspecified Vomiting Intractability: non-intractable Qualified Code(s): R11.2 - Nausea with vomiting, unspecified Abdominal pain Qualifiers: Abdominal location: unspecified location Qualified Code(s): R10.9 - Unspecified abdominal pain Anemia Qualifiers: Anemia type: unspecified type Qualified Code(s): D64.9 - Anemia, unspecified Sepsis Qualifiers: Sepsis type: sepsis due to unspecified organism Sepsis acute organ dysfunction status: without acute organ dysfunction Qualified Code(s): A41.9 - Sepsis, unspecified organism Condition: Fair - Admission Yes - Additional Discharge Information - Follow up/Referral - Patient Discharge Instructions - Post Discharge Activity
[2019-10-17] MEDS ORDERED: ONDANSETRON 4 MG/2 ML VIAL IVPUSH ONE (07:59)
[2019-10-17] MEDS ORDERED: KETOROLAC TROMETHAMINE 30 MG/1 ML VIAL IVPUSH ONE (07:59)
[2019-10-17] MEDS ORDERED: ACETAMINOPHEN 1000 MG/100 ML VIAL (NON FORMULARY) IVPB ONE (07:59)
[2019-10-17] MEDS ORDERED: ONDANSETRON 4 MG/2 ML VIAL ONE (08:04)
[2019-10-17] MEDS ORDERED: ACETAMINOPHEN INJECTION 100 ML IVPB ONE (08:05)
[2019-10-17 08:19] LABS: BASO % 0.6 % (0-2.0); EOS % 0.5 % (0-4.5); HEMATOCRIT 24.3 % (32.4-45.2); HEMOGLOBIN 7.3 GM/dL (10.7-15.3); LYMPH % 6.4 % (8-40); MCHC 30.1 g/dl (32.0-36.0); MEAN CELL VOLUME 56.8 fl (80-96); MEAN PLT VOLUME 8.4 fl (7.5-11.1); MONO % 7.7 % (3.8-10.2); NEUT % 84.8 % (42.8-82.8); PLATELET COUNT 317 K/MM3 (134-434); RBC 4.28 M/mm3 (3.60-5.2); RDW 19.3 % (11.6-15.6); WHITE BLOOD COUNT 17.7 K/mm3 (4.0-10.0)
[2019-10-17 08:22] LABS: MCH 17.1 pg (25.7-33.7)
[2019-10-17 08:42] LABS: ALBUMIN 3.2 g/dl (3.4-5.0); BILIRUBIN,TOTAL 0.7 mg/dL (0.2-1); BLOOD UREA NITROGEN 6.3 mg/dL (7-18); CALCIUM 8.7 mg/dL (8.5-10.1); CREATININE 0.9 mg/dL (0.55-1.3); POTASSIUM 3.8 mmol/L (3.5-5.1); TOT PROT 7.8 g/dl (6.4-8.2)
[2019-10-17 09:15] LABS: EPI CELLS 4.7 /HPF (0-5/HPF); HYALINE CASTS 0 /lpf (0-8); PH,URINE 6.5 (5.0-8.0); URINE APPEARANCE CLEAR; URINE BACTERIA 112.7 /hpf (NEGATIVE); URINE BILIRUBIN NEGATIVE (NEGATIVE); URINE COLOR YELLOW; URINE GLUCOSE (UA) NEGATIVE (NEGATIVE); URINE KETONE NEGATIVE (NEGATIVE); URINE LEUK ESTERASE 1+ (NEGATIVE); URINE NITRITE NEGATIVE (NEGATIVE); URINE PROTEIN TRACE (NEGATIVE); URINE RBC 2 /hpf (0-4); URINE UROBILINOGEN 0.2 mg/dL (0.2-1.0); URINE WBC 32 /hpf (0-5)
[2019-10-17] MEDS ORDERED: KETOROLAC TROMETHAMINE 30 MG/1 ML VIAL ONE (09:16)
[2019-10-17 11:19] LABS: ANISOCYTOSIS 3+; MACROCYTOSIS 0; PLATELET ESTIMATE NORMAL
[2019-10-17] MEDS ORDERED: CEFTRIAXONE 1 GM in DEXTROSE 5%-WATER - 100 ML IVPB ONE (11:35)
[2019-10-17] MEDS ORDERED: CEFTRIAXONE 1 GM/50 ML BAG ONE (11:56)
--- NOTE | 2019-10-17 13:25 | PN ---
Teaching Attending Note Name of Resident: Srinivasan Phillips ATTENDING PHYSICIAN STATEMENT I saw and evaluated the patient. I reviewed the resident's note and discussed the case with the resident. I agree with the resident's findings and plan as documented. SUBJECTIVE: Patient is a 34yof, with PMH leiomyoma s/p myomectomy (2018) and nicotine use d /o c/o 4 days of generalized fatigue, lethargy, nausea, vomiting, and chills. fever of 102.7 on admission OBJECTIVE: Vital Signs Temperature 98.6 F 10/17/19 12:49 Pulse Rate 110 H 10/17/19 12:49 Respiratory Rate 26 H 10/17/19 12:49 Blood Pressure 130/80 10/17/19 12:49 O2 Sat by Pulse Oximetry (%) 97 10/17/19 09:05 GENERAL: The patient is awake, alert, and fully oriented, having rigors . HEAD: Normal with no signs of trauma. EYES: PERRL, extraocular movements intact, sclera anicteric, conjunctiva clear. ENT: Ears normal, oropharynx clear without exudates, moist mucous membranes. NECK: Trachea midline, full range of motion, supple. LUNGS: Breath sounds equal, clear to auscultation bilaterally, no wheezes, no crackles, no accessory muscle use. HEART: Regular rate and rhythm, S1, S2 without murmur, rub or gallop. ABDOMEN: Soft, NT,ND, No CVa tenderness, normoactive bowel sounds, no guarding , no rebound, no hepatosplenomegaly, no masses. EXTREMITIES: 2+ pulses, warm, well-perfused, no edema. NEUROLOGICAL: Cranial nerves II through XII grossly intact. Normal speech, gait not observed. PSYCH: Normal mood, normal affect. SKIN: Warm, dry, normal turgor, no rashes or lesions noted CBCD WBC 17.7 K/mm3 (4.0-10.0) H 10/17/19 08:04 RBC 4.28 M/mm3 (3.60-5.2) 10/17/19 08:04 Hgb 7.3 GM/dL (10.7-15.3) L 10/17/19 08:04 Hct 24.3 % (32.4-45.2) L 10/17/19 08:04 MCV 56.8 fl (80-96) L 10/17/19 08:04 MCHC 30.1 g/dl (32.0-36.0) L 10/17/19 08:04 RDW 19.3 % (11.6-15.6) H 10/17/19 08:04 Plt Count 317 K/MM3 (134-434) D 10/17/19 08:04 MPV 8.4 fl (7.5-11.1) 10/17/19 08:04 CMP Sodium 138 mmol/L (136-145) 10/17/19 08:04 Potassium 3.8 mmol/L (3.5-5.1) 10/17/19 08:04 Chloride 107 mmol/L (98-107) 10/17/19 08:04 Carbon Dioxide 24 mmol/L (21-32) 10/17/19 08:04 Anion Gap 7 MMOL/L (8-16) L 10/17/19 08:04 BUN 6.3 mg/dL (7-18) L 10/17/19 08:04 Creatinine 0.9 mg/dL (0.55-1.3) 10/17/19 08:04 Random Glucose 99 mg/dL (74-106) 10/17/19 08:04 Calcium 8.7 mg/dL (8.5-10.1) 10/17/19 08:04 Total Bilirubin 0.7 mg/dL (0.2-1) 10/17/19 08:04 AST 10 U/L (15-37) L 10/17/19 08:04 ALT 13 U/L (13-61) 10/17/19 08:04 Alkaline Phosphatase 70 U/L (45-117) 10/17/19 08:04 Total Protein 7.8 g/dl (6.4-8.2) 10/17/19 08:04 Albumin 3.2 g/dl (3.4-5.0) L 10/17/19 08:04 Current Medications Generic Name Dose Route Start Last Admin Trade Name Freq PRN Reason Stop Dose Admin Sodium Chloride 1,000 mls @ 1,000 mls/hr 10/17/19 12:50 10/17/19 12:56 Normal Saline - IV 10/17/19 13:49 1,000 mls/hr ASDIR STA Administration Ceftriaxone Sodium 1 gm/ 50 mls @ 100 mls/hr 10/17/19 13:30 Dextrose IVPB 10/17/19 13:59 ONCE ONE Home Medications Medication Instructions Recorded Norethindrone-E.estradiol-Iron 1 tab PO DAILY 08/09/19 [Junel Fe 1 mg-20 Mcg Tablet] Ferrous Sulfate 325 mg PO DAILY #30 tablet 10/17/19 Ferrous Sulfate [Iron] 325 mg PO DAILY #30 tablet 10/17/19 Sulfamethoxazole/Trimethoprim 1 each PO BID #14 tablet 10/17/19 [Bactrim Ds Tablet] Sulfamethoxazole/Trimethoprim 1 each PO BID #14 tablet 10/17/19 [Bactrim Ds Tablet] Ct abdomen and pelvis: bl breast implants, low attentuation is seen within the lower pole of the kidney which could be on the basis of acute pyelonephritis. ASSESSMENT AND PLAN: Patient is s 34yo female with PMH leiomyoma s/p myomectomy (2018) and nicotine use presented with generalized fatigue, lethargy, nausea, vomiting, and chills. and was found to have Acute pylonephritis #Acute pyelonephritis: rocephin 2gm IV , and one dose of gentamicin was given 100mg per ID #sepsis: [facility] cx oredered , lactic acid level IVF at 200cc/he, Rocephin 2gm iv daily, ID consult DVt px: early ambulation, lovenox
[2019-10-17] MEDS ORDERED: CEFTRIAXONE 1 GM in DEXTROSE 5%-WATER - 50 ML IVPB ONE (13:30)
--- NOTE | 2019-10-17 13:37 | HP ---
CHIEF COMPLAINT: Fatigue, nausea, vomiting, fever PCP: None HISTORY OF PRESENT ILLNESS: 34 y/o female with PMH leiomyoma s/p myomectomy (2018) and nicotine use d/ o c/o 4 days of generalized fatigue, lethargy, nausea, vomiting, and chills. This has never happened before. Vomitus has been food containing, NBNB, and occurred only with PO intake (x2 since Tuesday and no meals since). She denies diarrhea, constipation presently, sick contacts, travel, and new foods/meds/herbs/supplement. She denies dysuria, back pain, hematuria, and hemoptysis, however states she has had urinary urgency since Tuesday. She denies sore throat, cough. She did not receive the flu vaccine this year. LMP 05 Oct 2019, 5 days, 8 pads per day, which is her normal. She denies any vaginal dc or scale expert changes. She denies night sweats and recent weight loss. She feels NO chest pain, shortness of breath, calf pain, abdominal pain, and joint pain. Pt came to the ED, was given IVF and ceftriaxone, and improved initially. During the ED visit she demonstrated rigors and upon reassessment VS significant for RR 26, HR 110, and WBC 17.7. Temperature oral 102oF and repeat 102.4oF. Lactate 8. A second peripheral line was acquired and she was given 3 L IVF. ICU consulted. Recent Travel: Denies PAST MEDICAL HISTORY: PMH leiomyoma s/p myomectomy (2018), nicotine use d/o PAST SURGICAL HISTORY: myomectomy (2018 [facility]), liposuction and breast augmentation (2019, [facility]) Family history: Mother HTN, Father 0. No fam h/o cancer. Social History: Smoking: Current smoker 3/day. 10 year hx. In contemplative stage of cessation. 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 Lives with mother only in apartment, no pets. Sexual history: Currently sexually active with men only. No h/o STI. Psychiatric history: Denies feeling depressed or having had depression. She denies SI/HI/AH/VH. She states she feels safe and can reach ou is able t Allergies latex Allergy (Mild, Verified 08/09/19 19:50), "itchy and hives" No Known Drug Allergies Allergy (Verified 08/09/19 19:50). SEAFOOD Allergy (Mild, Uncoded 08/09/19 19:50) "airway closes up" fish containing products HOME MEDICATIONS: NO HOME MEDICATIONS REVIEW OF SYSTEMS CONSTITUTIONAL: Absent: fever, chills, diaphoresis, generalized weakness, malaise, loss of appetite, weight change HEENT: Absent: rhinorrhea, nasal congestion, throat pain, throat swelling, difficulty swallowing, mouth swelling, ear pain, eye pain, visual changes CARDIOVASCULAR: Absent: chest pain, syncope, palpitations, irregular heart rate, lightheadedness , peripheral edema RESPIRATORY: Absent: cough, shortness of breath, dyspnea with exertion, orthopnea, wheezing, stridor, hemoptysis GASTROINTESTINAL: Absent: abdominal pain, abdominal distension, nausea, vomiting, diarrhea, constipation, melena, hematochezia GENITOURINARY: Absent: dysuria, frequency, urgency, hesitancy, hematuria, flank pain, genital pain MUSCULOSKELETAL: Absent: myalgia, arthralgia, joint swelling, back pain, neck pain SKIN: Absent: rash, itching, pallor HEMATOLOGIC/IMMUNOLOGIC: Absent: easy bleeding, easy bruising, lymphadenopathy, frequent infections ENDOCRINE: Absent: unexplained weight gain, unexplained weight loss, heat intolerance, cold intolerance NEUROLOGIC: Absent: headache, focal weakness or paresthesias, dizziness, unsteady gait, seizure, mental status changes, bladder or bowel incontinence PSYCHIATRIC: Absent: anxiety, depression, suicidal or homicidal ideation, hallucinations. PHYSICAL EXAMINATION Vital Signs - 24 hr 10/17/19 10/17/19 10/17/19 07:39 09:05 11:49 Temperature 101.2 F H 99.3 F 98.8 F Pulse Rate 103 H Pulse Rate [ 101 H 91 H Right] Respiratory 18 18 18 Rate Blood Pressure 102/57 L Blood Pressure 97/60 98/59 L [Left Arm] O2 Sat by Pulse 100 97 Oximetry (%) 10/17/19 12:49 Temperature 98.6 F Pulse Rate Pulse Rate [ 110 H Right] Respiratory 26 H Rate Blood Pressure Blood Pressure 130/80 [Left Arm] O2 Sat by Pulse Oximetry (%) GENERAL: AOx3, in no acute distress, diaphoretic, globally warm to touch HEAD: NCAT EYES: SALLY, EOMI, conjunctiva clear. ENT: Ears normal, nares patent, oropharynx clear without exudates. Moist mucous membranes. NECK: Normal range of motion, supple without lymphadenopathy (including axillary ), JVD, or masses. Shaved chin hair LUNGS: CTAB. No wheezes, and no crackles. No accessory muscle use. HEART: RRR s1 s2 ABDOMEN: Soft, BS present in all 4 quadrants, non-tender, non-distended, no JVD, mcclure NEG, mcburney NEG MUSCULOSKELETAL: No bony deformities or tenderness. No CVA tenderness. UPPER EXTREMITIES: 2+ pulses, warm, well-perfused. No cyanosis. No clubbing. No peripheral edema. LOWER EXTREMITIES: 2+ pulses, warm, well-perfused. No calf tenderness. No peripheral edema. NEUROLOGICAL: No focal deficits. Cranial nerves II-XII intact. Normal speech. Gait not appreciated. PSYCHIATRIC: Cooperative. Good eye contact. Appropriate mood and affect. SKIN: Warm, dry, normal turgor, no rashes or lesions noted, normal capillary refill. BL areolar piercings. Surgical scars below breasts BL. Laboratory Results - last 24 hr 10/17/19 10/17/19 10/17/19 08:04 08:04 08:04 WBC 17.7 H RBC 4.28 Hgb 7.3 L Hct 24.3 L MCV 56.8 L MCH 17.1 L MCHC 30.1 L RDW 19.3 H Plt Count 317 D MPV 8.4 Absolute Neuts (auto) 15.0 H Neutrophils % 84.8 H D Lymphocytes % 6.4 L D Monocytes % 7.7 Eosinophils % 0.5 Basophils % 0.6 Nucleated RBC % 0 Hypochromia 2+ Platelet Estimate Normal Polychromasia 1+ Poikilocytosis 1+ Anisocytosis 3+ Microcytosis 3+ Macrocytosis 0 Stomatocytes 1+ Sodium 138 Potassium 3.8 Chloride 107 Carbon Dioxide 24 Anion Gap 7 L BUN 6.3 L Creatinine 0.9 Est GFR (CKD-EPI)AfAm 96.69 Est GFR (CKD-EPI)NonAf 83.42 Random Glucose 99 Calcium 8.7 Total Bilirubin 0.7 AST 10 L ALT 13 Alkaline Phosphatase 70 Total Protein 7.8 Albumin 3.2 L Urine Color Urine Appearance Urine pH Ur Specific Weaver Urine Protein Urine Glucose (UA) Urine Ketones Urine Blood Urine Nitrite Urine Bilirubin Urine Urobilinogen Ur Leukocyte Esterase Urine WBC (Auto) Urine RBC (Auto) Urine Casts (Auto) U Epithel Cells (Auto) Urine Bacteria (Auto) Urine HCG, Qual Influenza A (Rapid) Negative Influenza B (Rapid) Negative 10/17/19 10/17/19 08:12 08:12 WBC RBC Hgb Hct MCV MCH MCHC RDW Plt Count MPV Absolute Neuts (auto) Neutrophils % Lymphocytes % Monocytes % Eosinophils % Basophils % Nucleated RBC % Hypochromia Platelet Estimate Polychromasia Poikilocytosis Anisocytosis Microcytosis Macrocytosis Stomatocytes Sodium Potassium Chloride Carbon Dioxide Anion Gap BUN Creatinine Est GFR (CKD-EPI)AfAm Est GFR (CKD-EPI)NonAf Random Glucose Calcium Total Bilirubin AST ALT Alkaline Phosphatase Total Protein Albumin Urine Color Yellow Urine Appearance Clear Urine pH 6.5 D Ur Specific Weaver 1.010 Urine Protein Trace Urine Glucose (UA) Negative Urine Ketones Negative Urine Blood Negative Urine Nitrite Negative Urine Bilirubin Negative Urine Urobilinogen 0.2 Ur Leukocyte Esterase 1+ H Urine WBC (Auto) 32 Urine RBC (Auto) 2 Urine Casts (Auto) 0 U Epithel Cells (Auto) 4.7 Urine Bacteria (Auto) 112.7 Urine HCG, Qual Negative Influenza A (Rapid) Influenza B (Rapid) IMAGING: ASSESSMENT/PLAN: 34 y/o female with PMH leiomyoma s/p myomectomy (2018) and nicotine use d/ o c/o 4 days of generalized fatigue, lethargy, nausea, vomiting, and chills. CT demonstrating focal hypodensity on kiney LEFT lower pole. UA 1+ LE. Sepsis criteria met: 102.4 fever, WBC 17.7, RR 110. # Sepsis 2/2 pyelonephritis - Lactate 8, f/u repeat in 1 hour - LR 125 cc/hour - Ceftriaxone 2g IV QD - Consult ID - Acetominphen 650 mg PO q6h PRN - Pt assessed by ICU and given pt is hemodynamicaly stable, will not be accepted. Will monitor on telemetry. # Mycrocytic Anemia - Chronic blood loss given h/o leiomyoma and menorrhagia - Consider venofer when stable - Transfusion threshold Hb 7 # Hypoalbuminemia - Decreased PO intake - Encourage nutrition as tolerated # F/E/N - LR 125 cc/hour - Cont. to monitor, f/u repeat lactate - Regular diet # DVT prophylaxis - SCD # Disposition - Admit to telemetry Srinivasan Phillips MD Visit type - Emergency Visit Emergency Visit: Yes ED Registration Date: 10/17/19 Care time: The patient presented to the Emergency Department on the above date and was hospitalized for further evaluation of their emergent condition. - New Patient This patient is new to me today: Yes Date on this admission: 10/21/19 - Critical Care Critical Care patient: No ATTENDING PHYSICIAN STATEMENT I saw and evaluated the patient. I reviewed the resident's note and discussed the case with the resident. I agree with the resident's findings and plan as documented. SUBJECTIVE: OBJECTIVE: ASSESSMENT AND PLAN:
[2019-10-17 13:38] LABS: INR 1.14 (0.83-1.09); PROTHROMBIN TIME (PATIENT) 13.5 SEC (9.7-13.0)
[2019-10-17] MEDS ORDERED: IBUPROFEN 800 MG/8 ML IJ IVPB ONE ×2 (13:38→13:39)
[2019-10-17] MEDS ORDERED: cefTRIAXone SODIUM 1 GM VIAL ONE (13:39)
[2019-10-17] MEDS ORDERED: IBUPROFEN 800 MG/8 ML IJ IVPB PRN ×2 (14:10→20:00)
[2019-10-17] MEDS ORDERED: SODIUM CHLORIDE 1,905 ML IV ONE (14:26)
[2019-10-17] MEDS ORDERED: PIPERACILLIN/TAZOB 3.375 GM 3.375 GM/50 ML BAG IVPB ONE (14:28)
[2019-10-17] MEDS ORDERED: PIPERACILLIN/TAZOB 3.375 GM 3.375 GM in DEXTROSE 5%-WATER - 50 ML IVPB ONE (14:34)
[2019-10-17] MEDS ORDERED: LACTATED RINGERS SOLUTION 1,000 ML/1,000 ML INFUS.BAG IV SCH (16:00)
[2019-10-17] MEDS ORDERED: GENTAMICIN 100 MG/100 ML BAG IVPB ONE (16:30)
[2019-10-17 16:35] LABS: BASO % 0.6 % (0-2.0); EOS % 0.3 % (0-4.5); HEMATOCRIT 21.8 % (32.4-45.2); LYMPH % 4.7 % (8-40); MCHC 29.1 g/dl (32.0-36.0); MEAN CELL VOLUME 58.1 fl (80-96); MEAN PLT VOLUME 8.6 fl (7.5-11.1); MONO % 6.9 % (3.8-10.2); NEUT % 87.5 % (42.8-82.8); PLATELET COUNT 259 K/MM3 (134-434); RBC 3.74 M/mm3 (3.60-5.2); WHITE BLOOD COUNT 13.1 K/mm3 (4.0-10.0)
[2019-10-17 16:37] LABS: MCH 16.9 pg (25.7-33.7)
[2019-10-17 16:38] LABS: HEMOGLOBIN 6.3 GM/dL (10.7-15.3)
--- NOTE | 2019-10-17 16:40 | CONSULT ---
Consultation: REQUESTING PROVIDER: Dr. Brunson CONSULT REQUEST: We have been asked to medically evaluate this patient for septic shock. HISTORY OF PRESENT ILLNESS: 34 F with PMH of leimyoma s/p myomectomy and anemia who presented with 4 days of generalized fatigue, lethargy, nausea, vomiting, chills, and decreased PO intake. She endorsed having subjective fever and chills and episodes of NBNB emeisis after eating. Patient denies and diarrhea, constipation, recent travel, and sick contacts. Patient also denies any dysurria, hematuria, incontinence. Patient did endorse having history of 2 UTIs treated with antibiotics throughout 2019. Patient initially believed she had the flu, however flu swab in the ED showed she was flu negative. CT scan of her abdomen showed focal hypodensity in the left kidney which could be due to acute pyelonephritis. Patient was intially going to be discharged from ED but developed rigors, further examination found her to have lactate of 8 and was given 2 L bolus of IV fluids and started on LR. Patient noted to have oral temp of 102.6 at this time as well. REVIEW OF SYSTEMS: CONSTITUTIONAL: Present: fever, chills, diaphoresis, loss of appetite Absent: malaise, weight change HEENT: Absent: rhinorrhea, nasal congestion, throat pain, throat swelling, difficulty swallowing, mouth swelling, ear pain, eye pain, visual changes CARDIOVASCULAR: Absent: chest pain, syncope, palpitations, irregular heart rate, lightheadedness , peripheral edema RESPIRATORY: Absent: cough, shortness of breath, dyspnea with exertion, orthopnea, wheezing, stridor, hemoptysis GASTROINTESTINAL: Present: abdominal pain, nausea, vomiting Absent: abdominal distension, diarrhea, constipation, melena, hematochezia GENITOURINARY: Absent: dysuria, frequency, urgency, hesitancy, hematuria, flank pain, genital pain MUSCULOSKELETAL: Absent: myalgia, arthralgia, joint swelling, back pain, neck pain SKIN: Absent: rash, itching, pallor ENDOCRINE: Absent: unexplained weight gain, unexplained weight loss, heat intolerance, cold intolerance NEUROLOGIC: Absent: headache, focal weakness or paresthesias, dizziness, unsteady gait, seizure, mental status changes, bladder or bowel incontinence PSYCHIATRIC: Absent: anxiety, depression, suicidal or homicidal ideation, hallucinations. PHYSICAL EXAMINATION Vital Signs - 24 hr 10/17/19 10/17/19 10/17/19 07:39 09:05 11:49 Temperature 101.2 F H 99.3 F 98.8 F Pulse Rate 103 H Pulse Rate [ 101 H 91 H Right] Respiratory 18 18 18 Rate Blood Pressure 102/57 L Blood Pressure 97/60 98/59 L [Left Arm] O2 Sat by Pulse 100 97 Oximetry (%) 10/17/19 10/17/19 10/17/19 12:49 13:20 14:11 Temperature 98.6 F 102.6 F H 102.6 F H Pulse Rate Pulse Rate [ 110 H Right] Respiratory 26 H Rate Blood Pressure Blood Pressure 130/80 [Left Arm] O2 Sat by Pulse Oximetry (%) 10/17/19 15:47 Temperature 98.6 F Pulse Rate Pulse Rate [ 100 H Right] Respiratory 18 Rate Blood Pressure Blood Pressure 102/62 [Left Arm] O2 Sat by Pulse 97 Oximetry (%) GENERAL: Awake, alert, and fully oriented, in no acute distress. HEAD: Normal with no signs of trauma. EYES: Pupils equal, round and reactive to light, extraocular movements intact, sclera anicteric, conjunctiva clear. No lid lag. EARS, NOSE, THROAT: Ears normal, nares patent, oropharynx clear without exudates. Moist mucous membranes. NECK: Normal range of motion, supple without lymphadenopathy, JVD, or masses. LUNGS: Breath sounds equal, clear to auscultation bilaterally. No wheezes, and no crackles. No accessory muscle use. HEART: Tachycardic, normal S1 and S2 without murmur, rub or gallop. ABDOMEN: Suprapubic tenderness. Normoactive bowel sounds. MUSCULOSKELETAL: Normal range of motion at all joints. No bony deformities or tenderness. CVA tenderness right>left. UPPER EXTREMITIES: 2+ pulses, warm, well-perfused. No cyanosis. No clubbing. Cap refill <2 seconds. No peripheral edema. LOWER EXTREMITIES: 2+ pulses, warm, well-perfused. No calf tenderness. No peripheral edema. NEUROLOGICAL: Cranial nerves II-XII intact. Normal speech. Normal gait. PSYCHIATRIC: Cooperative. Good eye contact. Appropriate mood and affect. SKIN: Warm, dry, normal turgor, no rashes or lesions noted. Laboratory Results - last 24 hr 10/17/19 10/17/19 10/17/19 08:04 08:04 08:04 WBC 17.7 H RBC 4.28 Hgb 7.3 L Hct 24.3 L MCV 56.8 L MCH 17.1 L MCHC 30.1 L RDW 19.3 H Plt Count 317 D MPV 8.4 Absolute Neuts (auto) 15.0 H Neutrophils % 84.8 H D Lymphocytes % 6.4 L D Monocytes % 7.7 Eosinophils % 0.5 Basophils % 0.6 Nucleated RBC % 0 Hypochromia 2+ Platelet Estimate Normal Polychromasia 1+ Poikilocytosis 1+ Anisocytosis 3+ Microcytosis 3+ Macrocytosis 0 Stomatocytes 1+ PT with INR INR Sodium 138 Potassium 3.8 Chloride 107 Carbon Dioxide 24 Anion Gap 7 L BUN 6.3 L Creatinine 0.9 Est GFR (CKD-EPI)AfAm 96.69 Est GFR (CKD-EPI)NonAf 83.42 Random Glucose 99 Lactic Acid Calcium 8.7 Total Bilirubin 0.7 AST 10 L ALT 13 Alkaline Phosphatase 70 Total Protein 7.8 Albumin 3.2 L Urine Color Urine Appearance Urine pH Ur Specific [place] Urine Protein Urine Glucose (UA) Urine Ketones Urine Blood Urine Nitrite Urine Bilirubin Urine Urobilinogen Ur Leukocyte Esterase Urine WBC (Auto) Urine RBC (Auto) Urine Casts (Auto) U Epithel Cells (Auto) Urine Bacteria (Auto) Urine HCG, Qual Influenza A (Rapid) Negative Influenza B (Rapid) Negative Blood Type Antibody Screen 10/17/19 10/17/19 10/17/19 08:12 08:12 12:55 WBC RBC Hgb Hct MCV MCH MCHC RDW Plt Count MPV Absolute Neuts (auto) Neutrophils % Lymphocytes % Monocytes % Eosinophils % Basophils % Nucleated RBC % Hypochromia Platelet Estimate Polychromasia Poikilocytosis Anisocytosis Microcytosis Macrocytosis Stomatocytes PT with INR INR Sodium Potassium Chloride Carbon Dioxide Anion Gap BUN Creatinine Est GFR (CKD-EPI)AfAm Est GFR (CKD-EPI)NonAf Random Glucose Lactic Acid 8.0 H* Calcium Total Bilirubin AST ALT Alkaline Phosphatase Total Protein Albumin Urine Color Yellow Urine Appearance Clear Urine pH 6.5 D Ur Specific [place] 1.010 Urine Protein Trace Urine Glucose (UA) Negative Urine Ketones Negative Urine Blood Negative Urine Nitrite Negative Urine Bilirubin Negative Urine Urobilinogen 0.2 Ur Leukocyte Esterase 1+ H Urine WBC (Auto) 32 Urine RBC (Auto) 2 Urine Casts (Auto) 0 U Epithel Cells (Auto) 4.7 Urine Bacteria (Auto) 112.7 Urine HCG, Qual Negative Influenza A (Rapid) Influenza B (Rapid) Blood Type Antibody Screen 10/17/19 10/17/19 12:55 12:55 WBC RBC Hgb Hct MCV MCH MCHC RDW Plt Count MPV Absolute Neuts (auto) Neutrophils % Lymphocytes % Monocytes % Eosinophils % Basophils % Nucleated RBC % Hypochromia Platelet Estimate Polychromasia Poikilocytosis Anisocytosis Microcytosis Macrocytosis Stomatocytes PT with INR 13.50 H INR 1.14 H Sodium Potassium Chloride Carbon Dioxide Anion Gap BUN Creatinine Est GFR (CKD-EPI)AfAm Est GFR (CKD-EPI)NonAf Random Glucose Lactic Acid Calcium Total Bilirubin AST ALT Alkaline Phosphatase Total Protein Albumin Urine Color Urine Appearance Urine pH Ur Specific [place] Urine Protein Urine Glucose (UA) Urine Ketones Urine Blood Urine Nitrite Urine Bilirubin Urine Urobilinogen Ur Leukocyte Esterase Urine WBC (Auto) Urine RBC (Auto) Urine Casts (Auto) U Epithel Cells (Auto) Urine Bacteria (Auto) Urine HCG, Qual Influenza A (Rapid) Influenza B (Rapid) Blood Type O POSITIVE Antibody Screen Negative Active Medications Generic Name Dose Route Start Last Admin Trade Name Freq PRN Reason Stop Dose Admin Chlorhexidine Gluconate 1 applic 10/17/19 22:00 Hibiclens For Decolonization - TP HS SHERICE Ceftriaxone Sodium 2 gm/ 100 mls @ 200 mls/hr 10/18/19 10:00 Dextrose IVPB DAILY SHERICE Protocol Lactated Ringer's 1,000 ml in 1,000 mls @ 125 mls/hr 10/17/19 16:00 10/17/19 15:58 Lactated Ringers Solution IV 125 mls/hr ASDIR SHERICE Administration Gentamicin Sulfate/Sodium Chloride 100 mg in 100 mls @ 200 mls/hr 10/17/19 16: 30 Gentamicin 100 Mg Premixed Ivpb IVPB 10/17/19 16:59 ONCE ONE Ibuprofen 400 mg 10/17/19 20:00 Caldolor Injection - IVPB 10/18/19 19:59 Q6H PRN FEVER Mupirocin 1 applic 10/17/19 22:00 Bactroban Ointment (For Decolonization) - NS 10/22/19 21:59 BID [facility] ASSESSMENT/PLAN: 34 F PMH leiomyoma s/p myomectomy (2018) and anemia (received IV venofer in the past) who presents with sepsis. CT imaging demonstrated focal hypodensity on left kidney which likely is acute pyelonephritis, UA has 112. 7 bacteria, 1+ Leukocyte estarase. Neuro -patient is AAOx3 ID -Septic with temperature of 102.6, HR 110, Lactic acid of 8.0, acute pyelonephritis -Flu negative, had rigors earlier in ED stay -Ceftriaxone and zoysn given -Acetaminophen 650 mg PO Q6H PRN for fever -LR @ 125 ml/hr, has received 3L of IVF -Repeat lactate Renal -Denies any UTI symptoms but has UA positive for pyuria and leukocyte esterase -Hx of UTIs in the past, had 2 in the previous year -Ceftriaxone Cardiovascular -Patient is tachycardic -BP stable, last measured at 109/66 at bedside with HR of 103. -Continous cardiac monitoring Pulm -No cough or shortness of breath -On RA, satting well -Will continue to monitor GI - Patient has had nausea and vomiting for the past 4 days with decreased PO intake. -Encourage PO intake -Continue LR @ 125 ml/hr -Regular diet Heme/Onc -Patient has hx of anemia. Follows with Dr. Hargrove. Has received IV venofer in the past -Repeat CBC. transfusion threshold: 7 F: LR @ 125 ml/hr E: Monitor CMP N: Regular diet, encourage PO intake. DVT: SCDs Dispo: Patient does not require ICU level of care due to HD stability, and improvement in clinical condition with IV fluids . Please reconsult as needed. Thank you for this consultative opportunity. Visit type - Emergency Visit Emergency Visit: Yes ED Registration Date: 10/17/19 Care time: The patient presented to the Emergency Department on the above date and was hospitalized for further evaluation of their emergent condition. - New Patient This patient is new to me today: Yes Date on this admission: 10/17/19 - Critical Care Critical Care patient: Yes Total Critical Care Time (in minutes): 45 Critical Care Statement: The care of this patient involved high complexity decision making to prevent further life threatening deterioration of the patient 's condition and/or to evaluate & treat vital organ system(s) failure or risk of failure. ATTENDING PHYSICIAN STATEMENT I saw and evaluated the patient. I reviewed the resident's note and discussed the case with the resident. I agree with the resident's findings and plan as documented. SUBJECTIVE: OBJECTIVE: ASSESSMENT AND PLAN:
--- NOTE | 2019-10-17 16:51 | PDOC ---
*Physical Exam - Vital Signs Last Vital Signs Temp Pulse Resp BP Pulse Ox 98.6 F 100 H 18 102/62 97 10/17/19 15:47 10/17/19 15:47 10/17/19 15:47 10/17/19 15:47 10/17/19 15:47 - Physical Exam General Appearance: Yes: Nourished, Appropriately Dressed. No: Apparent Distress Integumentary: positive: Normal Color, Dry, Warm Neurologic: positive: Fully Oriented, Alert, Normal Mood/Affect, Normal Response ED Treatment Course - LABORATORY CBC & Chemistry Diagram: 10/17/19 16:20 10/17/19 08:04 - ADDITIONAL ORDERS Additional order review: Laboratory Results 10/17/19 10/17/19 10/17/19 08:12 08:12 08:04 Sodium 138 Potassium 3.8 Chloride 107 Carbon Dioxide 24 Anion Gap 7 L BUN 6.3 L Creatinine 0.9 Est GFR (CKD-EPI)AfAm 96.69 Est GFR (CKD-EPI)NonAf 83.42 Random Glucose 99 Calcium 8.7 Total Bilirubin 0.7 AST 10 L ALT 13 Alkaline Phosphatase 70 Total Protein 7.8 Albumin 3.2 L Urine Color Yellow Urine Appearance Clear Urine pH 6.5 D Ur Specific [place] 1.010 Urine Protein Trace Urine Glucose (UA) Negative Urine Ketones Negative Urine Blood Negative Urine Nitrite Negative Urine Bilirubin Negative Urine Urobilinogen 0.2 Ur Leukocyte Esterase 1+ H Urine WBC (Auto) 32 Urine RBC (Auto) 2 Urine Casts (Auto) 0 U Epithel Cells (Auto) 4.7 Urine Bacteria (Auto) 112.7 Urine HCG, Qual Negative 10/17/19 08:04 RBC 4.28 MCV 56.8 L MCHC 30.1 L RDW 19.3 H MPV 8.4 Neutrophils % 84.8 H D Lymphocytes % 6.4 L D Monocytes % 7.7 Eosinophils % 0.5 Basophils % 0.6 - Medications Given in the ED: ED Medications Discontinued Medications Generic Name Dose Route Start Last Admin Trade Name Freq PRN Reason Stop Dose Admin Acetaminophen 1,000 mg 10/17/19 07:59 10/17/19 08:14 Ofirmev Injection - IVPB 10/17/19 08:00 1,000 mg ONCE ONE Administration Sodium Chloride 1,000 mls @ 1,000 mls/hr 10/17/19 07:58 10/17/19 08:14 Normal Saline - IV 10/17/19 08:57 1,000 mls/hr ASDIR STA Administration Ceftriaxone Sodium 1 gm/ 100 mls @ 200 mls/hr 10/17/19 11:35 10/17/19 12:04 Dextrose IVPB 10/17/19 12:04 200 mls/hr ONCE ONE Administration Sodium Chloride 1,000 mls @ 1,000 mls/hr 10/17/19 12:50 10/17/19 12:56 Normal Saline - IV 10/17/19 13:49 1,000 mls/hr ASDIR STA Administration Ceftriaxone Sodium 1 gm/ 50 mls @ 100 mls/hr 10/17/19 13:30 10/17/19 14:11 Dextrose IVPB 10/17/19 13:59 100 mls/hr ONCE ONE Administration Sodium Chloride 1,905 mls @ 952.5 mls/hr 10/17/19 14:26 10/17/19 14:32 Normal Saline - 30 ml/kg infuse over 2 hr (1905 ml) 10/17/19 16:25 952.5 mls/hr IV Administration ONCE ONE Piperacillin Sod/Tazobactam 50 mls @ 100 mls/hr 10/17/19 14:34 10/17/19 14:40 Sod 3.375 gm/ Dextrose IVPB 10/17/19 15:03 100 mls/hr ONCE ONE Administration Protocol Ibuprofen 800 mg 10/17/19 13:38 10/17/19 13:45 Caldolor Injection - IVPB 10/17/19 13:39 800 mg ONCE ONE Administration Ondansetron HCl 4 mg 10/17/19 07:59 10/17/19 08:14 Zofran Injection IVPUSH 10/17/19 08:00 4 mg ONCE ONE Administration Medical Decision Making - Medical Decision Making 10/17/19 16:50 Critical lab of Hbg 6.3, possibly d/t dilution from fluids; pt chronically runs low in the 8-7 range 1 unit PRBC ordered Pt reports improvement in her symptoms at this time Pending bed up stairs 10/17/19 18:38 Repeat lactic 2.8, improved Discharge - Discharge Information Problems reviewed: Yes Clinical Impression/Diagnosis: Fever Qualifiers: Fever type: unspecified Qualified Code(s): R50.9 - Fever, unspecified Nausea and vomiting Qualifiers: Vomiting type: unspecified Vomiting Intractability: non-intractable Qualified Code(s): R11.2 - Nausea with vomiting, unspecified Abdominal pain Qualifiers: Abdominal location: unspecified location Qualified Code(s): R10.9 - Unspecified abdominal pain Anemia Qualifiers: Anemia type: unspecified type Qualified Code(s): D64.9 - Anemia, unspecified Sepsis Qualifiers: Sepsis type: sepsis due to unspecified organism Sepsis acute organ dysfunction status: without acute organ dysfunction Qualified Code(s): A41.9 - Sepsis, unspecified organism Condition: Fair - Additional Discharge Information - Follow up/Referral - Patient Discharge Instructions - Post Discharge Activity
[2019-10-17 17:15] LABS: PLATELET ESTIMATE ADEQUATE
[2019-10-17] MEDS ORDERED: GENTAMICIN 80 MG PREMIXED IVPB 80 MG/100 ML BAG IVPB ONE (18:45)
[2019-10-17] MEDS ORDERED: GENTAMICIN SO4 80 MG/2 ML VIAL ONE (18:45)
[2019-10-17] MEDS ORDERED: MUPIROCIN 2% TOPICAL OINTMENT FOR DECOLONIZATION NS SCH (22:00)
[2019-10-17] MEDS ORDERED: CHLORHEXIDINE GLUCONATE 4% CLEANSER FOR DECOLONIZATION TP SCH (22:00)
[2019-10-18 01:16] VITALS: BMI 26.5
[2019-10-18 05:56] LABS: EPI CELLS 2.5 /HPF (0-5/HPF); HYALINE CASTS 1 /lpf (0-8); URINE APPEARANCE CLEAR; URINE BILIRUBIN NEGATIVE (NEGATIVE); URINE COLOR YELLOW; URINE GLUCOSE (UA) NEGATIVE (NEGATIVE); URINE KETONE NEGATIVE (NEGATIVE); URINE LEUK ESTERASE TRACE (NEGATIVE); URINE NITRITE NEGATIVE (NEGATIVE); URINE PROTEIN NEGATIVE (NEGATIVE); URINE RBC 1 /hpf (0-4); URINE WBC 3 /hpf (0-5)
[2019-10-18] MEDS ORDERED: IBUPROFEN 800 MG/8 ML IJ IVPB PRN (06:20)
[2019-10-18 07:13] LABS: HEMATOCRIT 27.1 % (32.4-45.2); HEMOGLOBIN 8.3 GM/dL (10.7-15.3); MCHC 30.7 g/dl (32.0-36.0); MEAN CELL VOLUME 60.1 fl (80-96); PLATELET COUNT 254 K/MM3 (134-434); RBC 4.51 M/mm3 (3.60-5.2); RDW 21.8 % (11.6-15.6); WHITE BLOOD COUNT 11.2 K/mm3 (4.0-10.0)
[2019-10-18 07:32] LABS: MCH 18.4 pg (25.7-33.7)
[2019-10-18 07:39] LABS: ALBUMIN 2.8 g/dl (3.4-5.0); BILIRUBIN,TOTAL 1.5 mg/dL (0.2-1); BLOOD UREA NITROGEN 8.5 mg/dL (7-18); CALCIUM 8.3 mg/dL (8.5-10.1); CREATININE 0.8 mg/dL (0.55-1.3); MAGNESIUM 2.2 mg/dL (1.8-2.4); PHOSPHOROUS 2.4 mg/dL (2.5-4.9); POTASSIUM 4.2 mmol/L (3.5-5.1); TOT PROT 6.9 g/dl (6.4-8.2)
[2019-10-18] MEDS ORDERED: DEXTROSE 5%-WATER 100 ML IVPB ONE (09:10)
[2019-10-18] MEDS: LACTATED RINGERS SOLUTION 1,000 ML/1,000 ML INFUS.BAG IV SCH ×2 (09:15→17:51)
[2019-10-18] MEDS: CEFTRIAXONE 2 GM in DEXTROSE 5%-WATER 100 ML IVPB SCH (09:16)
[2019-10-18] MEDS ORDERED: CEFTRIAXONE 2 GM in DEXTROSE 5%-WATER 100 ML IVPB SCH (10:00)
[2019-10-18 11:38] LABS: ANISOCYTOSIS 3+; MACROCYTOSIS 0; PLATELET ESTIMATE NORMAL
--- NOTE | 2019-10-18 11:52 | EKG ---
Test Reason : Blood Pressure : / mmHG Vent. Rate : 105 BPM Atrial Rate : 105 BPM P-R Int : 126 ms QRS Dur : 072 ms QT Int : 340 ms P-R-T Axes : 065 074 057 degrees QTc Int : 449 ms POOR DATA QUALITY, INTERPRETATION MAY BE ADVERSELY AFFECTED SINUS TACHYCARDIA OTHERWISE NORMAL ECG WHEN COMPARED WITH ECG OF 09-AUG-2019 20:09, NONSPECIFIC T WAVE ABNORMALITY NOW EVIDENT IN LATERAL LEADS Confirmed by DARRYL HOLT, MACO ([id number]) on 10/18/2019 11:51:58 AM Referred By: Confirmed By:MACO ANDREWS MD
--- NOTE | 2019-10-18 12:24 | PN ---
Progress Note (short form) - Note Progress Note: ID CONSULT DICTATED ACUTE L PYELONEPHRITIS R/O SEPSIS SECONDARY TO SOURCE LACTIC ACIDOSIS AWAIT C/S CONTINUE EMPIRIC [id number]
--- NOTE | 2019-10-18 15:38 | PN ---
Physical Exam: SUBJECTIVE: Patient seen and examined at bedside. She states she feels overall better but still experiencing chills, tactile fever, and diaphoresis. Overnight while receiving 1 unit PRBC pt decribed chills and had a recorded temp of 103.1. Transfusion was stopped, ibuprofen administered, and acute symptoms abated. Pt denies itchiness, SOB, difficulty breahting or itchy throat. Transfusion rxn vs continuation of current presenting issue? Will err on side of safety. Pt eager to return home. Discussed plan to continue to monitor and she is in agreement. OBJECTIVE: Vital Signs Period Temp Pulse Resp BP Sys/Maxwell Pulse Ox Last 24 Hr 98.1 F-103.1 F 81-100 18-20 94-127/57-77 97-100 GENERAL: AOx3, in no acute distress, warm to touch HEAD: NCAT EYES: SALLY, EOMI, conjunctiva clear. ENT: Ears normal, nares patent, oropharynx clear without exudates. Moist mucous membranes. NECK: Normal range of motion, supple without lymphadenopathy (including axillary ), JVD, or masses. Shaved chin hair LUNGS: CTAB. No wheezes, and no crackles. No accessory muscle use. HEART: RRR s1 s2 ABDOMEN: Soft, BS present in all 4 quadrants, non-tender, non-distended, no JVD , mcclure NEG, mcburney NEG MUSCULOSKELETAL: No bony deformities or tenderness. No CVA tenderness. UPPER EXTREMITIES: 2+ pulses, warm, well-perfused. No cyanosis. No clubbing. No peripheral edema. LOWER EXTREMITIES: 2+ pulses, warm, well-perfused. No calf tenderness. No peripheral edema. NEUROLOGICAL: No focal deficits. Cranial nerves II-XII intact. Normal speech. Gait not appreciated. PSYCHIATRIC: Cooperative. Good eye contact. Appropriate mood and affect. SKIN: Warm, dry, normal turgor, no rashes or lesions noted, normal capillary refill. BL areolar piercings. Surgical scars below breasts BL. Sacral tattoo; tattoo on lower abdomen/mons pubis Laboratory Results - last 24 hr 10/17/19 10/17/19 10/17/19 12:55 16:20 16:20 WBC 13.1 H RBC 3.74 Hgb 6.3 L* Hct 21.8 L MCV 58.1 L MCH 16.9 L MCHC 29.1 L RDW 19.0 H Plt Count 259 MPV 8.6 Absolute Neuts (auto) 11.5 H Neutrophils % 87.5 H Neutrophils % (Manual) Band Neutrophils % Lymphocytes % 4.7 L D Lymphocytes % (Manual) Monocytes % 6.9 Monocytes % (Manual) Eosinophils % 0.3 Eosinophils % (Manual) Basophils % 0.6 Basophils % (Manual) Myelocytes % (Man) Promyelocytes % (Man) Blast Cells % (Manual) Nucleated RBC % 0 Metamyelocytes Hypochromia Platelet Estimate Adequate Platelet Comment No clumping noted Polychromasia Poikilocytosis Anisocytosis Microcytosis Macrocytosis Sodium Potassium Chloride Carbon Dioxide Anion Gap BUN Creatinine Est GFR (CKD-EPI)AfAm Est GFR (CKD-EPI)NonAf Random Glucose Lactic Acid 2.6 H* Calcium Phosphorus Magnesium Total Bilirubin AST ALT Alkaline Phosphatase Total Protein Albumin TSH Urine Color Urine Appearance Urine pH Ur Specific [place] Urine Protein Urine Glucose (UA) Urine Ketones Urine Blood Urine Nitrite Urine Bilirubin Urine Urobilinogen Ur Leukocyte Esterase Urine WBC (Auto) Urine RBC (Auto) Urine Casts (Auto) U Epithel Cells (Auto) Urine Bacteria (Auto) Blood Type O POSITIVE Antibody Screen Negative Crossmatch See Detail 10/17/19 10/18/19 10/18/19 16:20 04:53 06:45 WBC 11.2 H RBC 4.51 Hgb 8.3 L Hct 27.1 L D MCV 60.1 L MCH 18.4 L MCHC 30.7 L RDW 21.8 H Plt Count 254 MPV 9.0 Absolute Neuts (auto) 8.7 H Neutrophils % No Result Required. Neutrophils % (Manual) 84.0 H Band Neutrophils % 0.0 Lymphocytes % No Result Required. Lymphocytes % (Manual) 9.0 Monocytes % Monocytes % (Manual) 5 D Eosinophils % Eosinophils % (Manual) 0.0 Basophils % Basophils % (Manual) 0.0 Myelocytes % (Man) 0 Promyelocytes % (Man) 0 Blast Cells % (Manual) 0 Nucleated RBC % 0 Metamyelocytes 0 Hypochromia 2+ Platelet Estimate Normal Platelet Comment Present Polychromasia 2+ Poikilocytosis 0 Anisocytosis 3+ Microcytosis 3+ Macrocytosis 0 Sodium Potassium Chloride Carbon Dioxide Anion Gap BUN Creatinine Est GFR (CKD-EPI)AfAm Est GFR (CKD-EPI)NonAf Random Glucose Lactic Acid Calcium Phosphorus Magnesium Total Bilirubin AST ALT Alkaline Phosphatase Total Protein Albumin TSH 0.75 Urine Color Yellow Urine Appearance Clear Urine pH 7.0 Ur Specific [place] 1.008 L Urine Protein Negative Urine Glucose (UA) Negative Urine Ketones Negative Urine Blood Negative Urine Nitrite Negative Urine Bilirubin Negative Urine Urobilinogen 1.0 Ur Leukocyte Esterase Trace Urine WBC (Auto) 3 Urine RBC (Auto) 1 Urine Casts (Auto) 1 U Epithel Cells (Auto) 2.5 Urine Bacteria (Auto) 15.0 Blood Type Antibody Screen Crossmatch 10/18/19 10/18/19 06:45 08:00 WBC RBC Hgb Hct MCV MCH MCHC RDW Plt Count MPV Absolute Neuts (auto) Neutrophils % Neutrophils % (Manual) Band Neutrophils % Lymphocytes % Lymphocytes % (Manual) Monocytes % Monocytes % (Manual) Eosinophils % Eosinophils % (Manual) Basophils % Basophils % (Manual) Myelocytes % (Man) Promyelocytes % (Man) Blast Cells % (Manual) Nucleated RBC % Metamyelocytes Hypochromia Platelet Estimate Platelet Comment Polychromasia Poikilocytosis Anisocytosis Microcytosis Macrocytosis Sodium 142 Potassium 4.2 Chloride 113 H Carbon Dioxide 23 Anion Gap 6 L BUN 8.5 Creatinine 0.8 Est GFR (CKD-EPI)AfAm 111.48 Est GFR (CKD-EPI)NonAf 96.19 Random Glucose 90 Lactic Acid 2.8 H* Calcium 8.3 L Phosphorus 2.4 L Magnesium 2.2 Total Bilirubin 1.5 H AST 19 ALT 16 Alkaline Phosphatase 68 Total Protein 6.9 Albumin 2.8 L TSH Urine Color Urine Appearance Urine pH Ur Specific [place] Urine Protein Urine Glucose (UA) Urine Ketones Urine Blood Urine Nitrite Urine Bilirubin Urine Urobilinogen Ur Leukocyte Esterase Urine WBC (Auto) Urine RBC (Auto) Urine Casts (Auto) U Epithel Cells (Auto) Urine Bacteria (Auto) Blood Type Antibody Screen Crossmatch Active Medications Generic Name Dose Route Start Last Admin Trade Name Freq PRN Reason Stop Dose Admin Ceftriaxone Sodium 2 gm/ 100 mls @ 200 mls/hr 10/18/19 10:00 10/18/19 09:16 Dextrose IVPB 200 mls/hr DAILY SHERICE Administration Protocol Lactated Ringer's 1,000 ml in 1,000 mls @ 125 mls/hr 10/18/19 06:20 10/18/19 09:15 Lactated Ringers Solution IV 125 mls/hr ASDIR SHERICE Administration Ibuprofen 400 mg 10/18/19 06:20 10/18/19 11:35 Caldolor Injection - IVPB 10/18/19 19:59 400 mg Q6H PRN Administration FEVER ASSESSMENT/PLAN: 34 y/o female with PMH leiomyoma s/p myomectomy (2018) and nicotine use d/ o c/o 4 days of generalized fatigue, lethargy, nausea, vomiting, and chills. CT demonstrating focal hypodensity on kiney LEFT lower pole. UA 1+ LE, resolved today to trace LE. She is receiving Ceftriaxone 2g IV QD and LR at 125 cc/hour with clinical improvment. # Sepsis 2/2 pyelonephritis - Lactate now 2.8 from 8 on presentation - LR 125 cc/hour - Ceftriaxone 2g IV QD - Consult ID - Ibuprofen 400 mg PO q6h PRN - Pt assessed by ICU and given pt is hemodynamicaly stable, will not be accepted. Will monitor on telemetry. # Mycrocytic Anemia - Chronic blood loss given h/o leiomyoma and menorrhagia - Consider venofer when stable - Transfusion threshold Hb 7 # Hypoalbuminemia - Decreased PO intake - Encourage nutrition as tolerated # F/E/N - LR 125 cc/hour - Cont. to monitor, f/u repeat lactate - Regular diet # DVT prophylaxis - SCD # Disposition - Admit to telemetry Srinivasan Phillips MD Visit type - Emergency Visit Emergency Visit: No - New Patient This patient is new to me today: No - Critical Care Critical Care patient: No ATTENDING PHYSICIAN STATEMENT I saw and evaluated the patient. I reviewed the resident's note and discussed the case with the resident. I agree with the resident's findings and plan as documented. SUBJECTIVE: OBJECTIVE: ASSESSMENT AND PLAN:
--- NOTE | 2019-10-18 16:58 | PN ---
Teaching Attending Note Name of Resident: Srinivasan Phillips ATTENDING PHYSICIAN STATEMENT I saw and evaluated the patient. I reviewed the resident's note and discussed the case with the resident. I agree with the resident's findings and plan as documented. SUBJECTIVE: Patient is feeling better but had fever overnight. Vital Signs Temperature 98.8 F 10/18/19 14:38 Pulse Rate 81 10/18/19 14:38 Respiratory Rate 20 10/18/19 14:38 Blood Pressure 102/65 10/18/19 14:38 O2 Sat by Pulse Oximetry (%) 100 10/18/19 09:00 GENERAL: The patient is awake, alert, and fully oriented, in no acute distress. HEAD: Normal with no signs of trauma. EYES: PERRL, extraocular movements intact, sclera anicteric, conjunctiva clear. ENT: Ears normal, oropharynx clear without exudates, moist mucous membranes. NECK: Trachea midline, full range of motion, supple. LUNGS: Breath sounds equal, clear to auscultation bilaterally, no wheezes, no crackles, no accessory muscle use. HEART: Regular rate and rhythm, S1, S2 without murmur, rub or gallop. ABDOMEN: Soft, NT,ND, no cva tenderness, normoactive bowel sounds, no guarding, no rebound, no hepatosplenomegaly, no masses. EXTREMITIES: 2+ pulses, warm, well-perfused, no edema. NEUROLOGICAL: Cranial nerves II through XII grossly intact. Normal speech, gait is stable. PSYCH: Normal mood, normal affect. SKIN: Warm, dry, normal turgor, no rashes or lesions noted CBCD WBC 11.2 K/mm3 (4.0-10.0) H 10/18/19 06:45 RBC 4.51 M/mm3 (3.60-5.2) 10/18/19 06:45 Hgb 8.3 GM/dL (10.7-15.3) L 10/18/19 06:45 Hct 27.1 % (32.4-45.2) L D 10/18/19 06:45 MCV 60.1 fl (80-96) L 10/18/19 06:45 MCHC 30.7 g/dl (32.0-36.0) L 10/18/19 06:45 RDW 21.8 % (11.6-15.6) H 10/18/19 06:45 Plt Count 254 K/MM3 (134-434) 10/18/19 06:45 MPV 9.0 fl (7.5-11.1) 10/18/19 06:45 CMP Sodium 142 mmol/L (136-145) 10/18/19 06:45 Potassium 4.2 mmol/L (3.5-5.1) 10/18/19 06:45 Chloride 113 mmol/L (98-107) H 10/18/19 06:45 Carbon Dioxide 23 mmol/L (21-32) 10/18/19 06:45 Anion Gap 6 MMOL/L (8-16) L 10/18/19 06:45 BUN 8.5 mg/dL (7-18) 10/18/19 06:45 Creatinine 0.8 mg/dL (0.55-1.3) 10/18/19 06:45 Random Glucose 90 mg/dL (74-106) 10/18/19 06:45 Calcium 8.3 mg/dL (8.5-10.1) L 10/18/19 06:45 Total Bilirubin 1.5 mg/dL (0.2-1) H 10/18/19 06:45 AST 19 U/L (15-37) 10/18/19 06:45 ALT 16 U/L (13-61) 10/18/19 06:45 Alkaline Phosphatase 68 U/L (45-117) 10/18/19 06:45 Total Protein 6.9 g/dl (6.4-8.2) 10/18/19 06:45 Albumin 2.8 g/dl (3.4-5.0) L 10/18/19 06:45 Current Medications Generic Name Dose Route Start Last Admin Trade Name Freq PRN Reason Stop Dose Admin Ceftriaxone Sodium 2 gm/ 100 mls @ 200 mls/hr 10/18/19 10:00 10/18/19 09:16 Dextrose IVPB 200 mls/hr DAILY SHERICE Administration Protocol Lactated Ringer's 1,000 ml in 1,000 mls @ 125 mls/hr 10/18/19 06:20 10/18/19 09:15 Lactated Ringers Solution IV 125 mls/hr ASDIR SHERICE Administration Ibuprofen 400 mg 10/18/19 06:20 10/18/19 11:35 Caldolor Injection - IVPB 10/18/19 19:59 400 mg Q6H PRN Administration FEVER Home Medications Medication Instructions Recorded Norethindrone-E.estradiol-Iron 1 tab PO DAILY 08/09/19 [Junel Fe 1 mg-20 Mcg Tablet] Ferrous Sulfate 325 mg PO DAILY #30 tablet 10/17/19 Ferrous Sulfate [Iron] 325 mg PO DAILY #30 tablet 10/17/19 Sulfamethoxazole/Trimethoprim 1 each PO BID #14 tablet 10/17/19 [Bactrim Ds Tablet] Sulfamethoxazole/Trimethoprim 1 each PO BID #14 tablet 10/17/19 [Bactrim Ds Tablet] Microbiology 10/17/19 13:00 Blood - Peripheral Venous Blood Culture - Preliminary NO GROWTH OBTAINED AFTER 72 HOURS, INCUBATION TO CONTINUE FOR 2 DAYS. 10/17/19 13:00 Blood - Peripheral Venous Blood Culture - Preliminary NO GROWTH OBTAINED AFTER 72 HOURS, INCUBATION TO CONTINUE FOR 2 DAYS. 10/17/19 18:00 Blood - Blood Bank Unit Blood Culture - Preliminary NO GROWTH OBTAINED AFTER 48 HOURS, INCUBATION TO CONTINUE FOR 3 DAYS. 10/17/19 23:15 Blood - Blood Bank Unit Blood Culture - Preliminary NO GROWTH OBTAINED AFTER 48 HOURS, INCUBATION TO CONTINUE FOR 3 DAYS. 10/17/19 23:15 Blood - Blood Bank Unit Blood Culture - Preliminary NO GROWTH OBTAINED AFTER 24 HOURS, INCUBATION TO CONTINUE FOR 4 DAYS. 10/17/19 12:00 Urine - Urine Clean Catch Urine Culture - Final Normal Urogenital Lynette Ct abdomen and pelvis: bl breast implants, low attentuation is seen within the lower pole of the kidney which could be on the basis of acute pyelonephritis. ASSESSMENT AND PLAN: Patient is s 34yo female with PMH leiomyoma s/p myomectomy (2018) and nicotine use presented with generalized fatigue, lethargy, nausea, vomiting, and chills. and was found to have Acute pylonephritis #Acute pyelonephritis: rocephin 2gm IV continue, no growth so far, but continues to have fever overnight s/p ond dose gentamicin 100mg,ID consult #sepsis: kaiser cx oredered , lactic acid level nl now , iVF at 125cc/he, Rocephin 2gm iv daily. DVt px: early ambulation, lovenox
--- NOTE | 2019-10-18 22:47 | CONS ---
DATE OF CONSULTATION: DATE OF DICTATION: 10/18/2019 INFECTIOUS DISEASE CONSULTATION HISTORY OF PRESENT ILLNESS: The patient is a 34-year-old female with a history of recurrent urinary tract infections, clinical anemia, evaluated for pyelonephritis. She began feeling unwell approximately 4 days prior to admission. She complained of generalized weakness fatigue, anorexia, nausea, vomiting. She had attributed her symptoms to a flu-like illness. She presented to the emergency room where she was noted to have fever of 101.2 and tachycardia. Influenza swab was negative. Urinalysis showed pyuria. Cultures were obtained. She was empirically treated with ceftriaxone. CAT scan of the abdomen and pelvis was performed that showed a hyperdense area in the left kidney suggestive of pyelonephritis. Her admitting lab work showed a white count of 17,000 and a lactic acid of 8. The patient denied any urinary tract symptoms. She denies any dysuria or hematuria, no frequency or urgency. She has had a history of upper respiratory infections, however denies any recent infection or recent antibiotic therapy. PAST MEDICAL HISTORY: Positive for leiomyoma, chronic anemia, recurrent urinary tract infection. ALLERGIES: No known allergies. SURGICAL HISTORY: Status post breast augmentation and abdominoplasty. MEDICATION: Include ceftriaxone, Tylenol, ibuprofen. SOCIAL HISTORY: Positive for tobacco use. Occasional ETOH. SYSTEMS REVIEW: Neurologic: No loss of consciousness, seizure activity, focal weakness. Cardiac: Negative for chest pain or palpitations. Respiratory: Negative for cough or sputum production. Gastrointestinal: Negative vomiting or diarrhea. Genitourinary: As per HPI. LABORATORY DATA: White count on admission 17,000, presently 11.2, hematocrit 24.3, platelets 317, creatinine 0.8. Urinalysis: 32 white cells, lactic acid 2.8. PHYSICAL EXAMINATION: General: On exam, she is awake and alert, seated in bed, in no acute distress. Vital signs: Temperature 100.5, T-max 103.1, blood pressure 127/73, pulse 94 regular, respirations 18 per minute. HEENT: Sclerae anicteric. Cardiovascular: Heart sounds S1, S2. Lungs: Clear. Abdomen: Soft. There is suprapubic tenderness to palpation. No CVA tenderness. Extremities: Negative for edema. IMPRESSION: 1. Acute left pyelonephritis. 2. Rule out sepsis secondary to genitourinary source. 3. Lactic acidosis. 4. Leukocytosis. Await cultures. Empiric coverage community-acquired urinary tract pathogens with ceftriaxone, IV fluid hydration, will follow. Thank you for the kind referral. SUMMER ECHOLS M.D. [id number]
[2019-10-19] MEDS ORDERED: IBUPROFEN 600 MG TABLET (FP) PO ONE (01:36)
[2019-10-19] MEDS ORDERED: IBUPROFEN 800 MG/8 ML IJ IVPB PRN (01:36)
[2019-10-19] MEDS: LACTATED RINGERS SOLUTION 1,000 ML/1,000 ML INFUS.BAG IV SCH ×3 (05:38→22:57)
[2019-10-19 07:37] LABS: BASO % 0.7 % (0-2.0); EOS % 1.4 % (0-4.5); HEMATOCRIT 24.9 % (32.4-45.2); HEMOGLOBIN 7.8 GM/dL (10.7-15.3); LYMPH % 23.8 % (8-40); MCHC 31.3 g/dl (32.0-36.0); MEAN CELL VOLUME 59.2 fl (80-96); MEAN PLT VOLUME 8.5 fl (7.5-11.1); MONO % 16.1 % (3.8-10.2); PLATELET COUNT 266 K/MM3 (134-434); RBC 4.21 M/mm3 (3.60-5.2); RDW 20.8 % (11.6-15.6); WHITE BLOOD COUNT 6.2 K/mm3 (4.0-10.0)
[2019-10-19 08:10] LABS: ALBUMIN 2.9 g/dl (3.4-5.0); BILIRUBIN,TOTAL 0.6 mg/dL (0.2-1); BLOOD UREA NITROGEN 6.1 mg/dL (7-18); CALCIUM 8.9 mg/dL (8.5-10.1); CREATININE 0.8 mg/dL (0.55-1.3); POTASSIUM 4.3 mmol/L (3.5-5.1); TOT PROT 6.9 g/dl (6.4-8.2)
[2019-10-19 08:33] LABS: MCH 18.5 pg (25.7-33.7)
[2019-10-19] MEDS ORDERED: DEXTROSE 5%-WATER 100 ML IVPB ONE (08:43)
[2019-10-19] MEDS: CEFTRIAXONE 2 GM in DEXTROSE 5%-WATER 100 ML IVPB SCH (09:23)
--- NOTE | 2019-10-19 11:05 | PN ---
Physical Exam: SUBJECTIVE: Patient seen and examined at bedside. Overnight she was febrile 102.9o, which was relieved by ibuprofen. She offers no complaints and is eager to return home. She denies YANG, CP, abdominal pain and dysuria. She is eating mainly soup and Ensure clear and has not vomited. OBJECTIVE: Vital Signs Period Temp Pulse Resp BP Sys/Maxwell Pulse Ox Last 24 Hr 97.6 F-102.9 F 81-104 20-20 98-135/65-90 99 GENERAL: AOx3, in no acute distress, well groomed HEAD: NCAT EYES: SALLY, EOMI, conjunctiva clear. ENT: Ears normal, nares patent, oropharynx clear without exudates. Moist mucous membranes. NECK: Normal range of motion, supple without lymphadenopathy (including axillary ), JVD, or masses. Shaved chin hair LUNGS: CTAB. No wheezes, and no crackles. No accessory muscle use. HEART: RRR s1 s2 ABDOMEN: Soft, BS present in all 4 quadrants, non-tender, non-distended, no JVD , mcclure NEG, mcburney NEG MUSCULOSKELETAL: No bony deformities or tenderness. No CVA tenderness. UPPER EXTREMITIES: 2+ pulses, warm, well-perfused. No cyanosis. No clubbing. No peripheral edema. LOWER EXTREMITIES: 2+ pulses, warm, well-perfused. No calf tenderness. No peripheral edema. NEUROLOGICAL: No focal deficits. Cranial nerves II-XII intact. Normal speech. Gait not appreciated. PSYCHIATRIC: Cooperative. Good eye contact. Appropriate mood and affect. SKIN: Warm, dry, normal turgor, no rashes or lesions noted, normal capillary refill. BL areolar piercings. Surgical scars below breasts BL. Sacral tattoo; tattoo on lower abdomen/mons pubis Laboratory Results - last 24 hr 10/17/19 10/18/19 10/19/19 23:15 06:45 07:00 WBC 6.2 RBC 4.21 Hgb 7.8 L Hct 24.9 L MCV 59.2 L MCH 18.5 L MCHC 31.3 L RDW 20.8 H Plt Count 266 MPV 8.5 Absolute Neuts (auto) 3.6 Neutrophils % 58.0 D Neutrophils % (Manual) 84.0 H Band Neutrophils % 0.0 Lymphocytes % 23.8 D Lymphocytes % (Manual) 9.0 Monocytes % 16.1 H D Monocytes % (Manual) 5 D Eosinophils % 1.4 D Eosinophils % (Manual) 0.0 Basophils % 0.7 Basophils % (Manual) 0.0 Myelocytes % (Man) 0 Promyelocytes % (Man) 0 Blast Cells % (Manual) 0 Nucleated RBC % 0 0 Metamyelocytes 0 Hypochromia 2+ Platelet Estimate Normal Platelet Comment Present Polychromasia 2+ Poikilocytosis 0 Anisocytosis 3+ Microcytosis 3+ Macrocytosis 0 Sodium Potassium Chloride Carbon Dioxide Anion Gap BUN Creatinine Est GFR (CKD-EPI)AfAm Est GFR (CKD-EPI)NonAf Random Glucose Lactic Acid Calcium Total Bilirubin AST ALT Alkaline Phosphatase Total Protein Albumin Transfuse React Work-up See comment 10/19/19 10/19/19 07:00 07:00 WBC RBC Hgb Hct MCV MCH MCHC RDW Plt Count MPV Absolute Neuts (auto) Neutrophils % Neutrophils % (Manual) Band Neutrophils % Lymphocytes % Lymphocytes % (Manual) Monocytes % Monocytes % (Manual) Eosinophils % Eosinophils % (Manual) Basophils % Basophils % (Manual) Myelocytes % (Man) Promyelocytes % (Man) Blast Cells % (Manual) Nucleated RBC % Metamyelocytes Hypochromia Platelet Estimate Platelet Comment Polychromasia Poikilocytosis Anisocytosis Microcytosis Macrocytosis Sodium 141 Potassium 4.3 Chloride 112 H Carbon Dioxide 23 Anion Gap 7 L BUN 6.1 L Creatinine 0.8 Est GFR (CKD-EPI)AfAm 111.48 Est GFR (CKD-EPI)NonAf 96.19 Random Glucose 93 Lactic Acid 1.3 Calcium 8.9 Total Bilirubin 0.6 AST 17 ALT 18 Alkaline Phosphatase 65 Total Protein 6.9 Albumin 2.9 L Transfuse React Work-up Active Medications Generic Name Dose Route Start Last Admin Trade Name Freq PRN Reason Stop Dose Admin Ceftriaxone Sodium 2 gm/ 100 mls @ 200 mls/hr 10/18/19 10:00 10/19/19 09:23 Dextrose IVPB 200 mls/hr DAILY SHERICE Administration Protocol Lactated Ringer's 1,000 ml in 1,000 mls @ 125 mls/hr 10/18/19 06:20 10/19/19 05:38 Lactated Ringers Solution IV 125 mls/hr ASDIR SHERICE Administration Ibuprofen 600 mg 10/19/19 01:36 10/19/19 01:51 Caldolor Injection - IVPB 600 mg Q6H PRN Administration FEVER ASSESSMENT/PLAN: 34 y/o female with PMH leiomyoma s/p myomectomy (2018) and nicotine use d/ o c/o 4 days of generalized fatigue, lethargy, nausea, vomiting, and chills. CT demonstrating focal hypodensity on kiney LEFT lower pole. UA 1+ LE, resolved today to trace LE. She is receiving Ceftriaxone 2g IV QD and LR at 125 cc/hour with clinical improvement. Will continue to monitor as fevers still recurrent. # Sepsis 2/2 pyelonephritis - Lactate now 1.3 from 8 on presentation (2.8 yesterday) - LR 125 cc/hour - Ceftriaxone 2g IV QD day 3 - Consult ID - Ibuprofen 400 mg PO q6h PRN, given recurrent fevers, will offer IV antipyretic : ofirmev 1,000 mg IV once - Urine culture NEGATIVE - Blood cultures pending - Pt assessed by ICU and given pt is hemodynamicaly stable, will not be accepted. Will monitor on telemetry. # Mycrocytic Anemia - Chronic blood loss given h/o leiomyoma and menorrhagia - Hb 7.8 today (0.5 drop from yesterday) - Consider venofer when stable - Transfusion threshold Hb 7 but BE CAUTIOUS OF TRANSFUSION RXN # Hypoalbuminemia - Decreased PO intake - Encourage nutrition as tolerated # F/E/N - LR 125 cc/hour - Cont. to monitor, f/u repeat lactate - Regular diet # DVT prophylaxis - SCD # Disposition - Telemetry Srinivasan Phillips MD Visit type - Emergency Visit Emergency Visit: No - New Patient This patient is new to me today: No - Critical Care Critical Care patient: No ATTENDING PHYSICIAN STATEMENT I saw and evaluated the patient. I reviewed the resident's note and discussed the case with the resident. I agree with the resident's findings and plan as documented. SUBJECTIVE: OBJECTIVE: ASSESSMENT AND PLAN:
[2019-10-19] MEDS ORDERED: ACETAMINOPHEN 1000 MG/100 ML VIAL (NON FORMULARY) IVPB ONE (13:54)
[2019-10-19] MEDS: guaiFENesin 600 MG TABLET.ER (FP) PO SCH ×2 (14:25→21:53)
--- NOTE | 2019-10-19 16:47 | PN ---
Progress Note, Physician Chief Complaint: TEMP 102.9 N0TED NO FOCAL COMPLAINT DENIES DYSURIA/HEMATURIA NO SUPRAPUBIC OR FLANK PAIN BC NO GROWTH - Current Medication List Current Medications: Active Medications Guaifenesin (Mucinex -) 600 mg PO BID [facility] Last Admin: 10/19/19 14:25 Dose: 600 mg Ceftriaxone Sodium 2 gm/ (Dextrose) 100 mls @ 200 mls/hr IVPB DAILY [facility]; Protocol Last Admin: 10/19/19 09:23 Dose: 200 mls/hr Lactated Ringer's (Lactated Ringers Solution) 1,000 ml in 1,000 mls @ 125 mls/ hr IV ASDIR SHERICE Last Admin: 10/19/19 14:25 Dose: 125 mls/hr Ibuprofen (Caldolor Injection -) 600 mg IVPB Q6H PRN PRN Reason: FEVER Last Admin: 10/19/19 01:51 Dose: 600 mg - Objective Vital Signs: Vital Signs Temperature 98.0 F 10/19/19 15:58 Pulse Rate 103 H 10/19/19 14:04 Respiratory Rate 22 H 10/19/19 14:04 Blood Pressure 144/82 10/19/19 14:04 O2 Sat by Pulse Oximetry (%) 100 10/19/19 09:00 Constitutional: Yes: No Distress Eyes: Yes: Conjunctiva Clear Cardiovascular: Yes: Regular Rate and Rhythm, S1, S2 Respiratory: Yes: CTA Bilaterally Gastrointestinal: Yes: Normal Bowel Sounds, Soft. No: Tenderness Genitourinary: No: CVA Tenderness - Left, CVA Tenderness - Right Labs: CBC, BMP 10/19/19 07:00 10/19/19 07:00 INR, PTT INR 1.14 (0.83-1.09) H 10/17/19 12:55 Assessment/Plan ACUTE L PYELONEPHRITIS FEVER CONTINUE EMPIRIC CEFTRIAXONE
[2019-10-19 17:48] LABS: PH,URINE 8.5 (5.0-8.0); URINE APPEARANCE CLEAR; URINE BILIRUBIN NEGATIVE (NEGATIVE); URINE COLOR YELLOW; URINE GLUCOSE (UA) NEGATIVE (NEGATIVE); URINE KETONE NEGATIVE (NEGATIVE); URINE LEUK ESTERASE NEGATIVE (NEGATIVE); URINE NITRITE NEGATIVE (NEGATIVE); URINE PROTEIN NEGATIVE (NEGATIVE); URINE UROBILINOGEN 0.2 mg/dL (0.2-1.0)
--- NOTE | 2019-10-19 20:29 | PN ---
Teaching Attending Note Name of Resident: Srinivasan Phillips ATTENDING PHYSICIAN STATEMENT I saw and evaluated the patient. I reviewed the resident's note and discussed the case with the resident. I agree with the resident's findings and plan as documented. SUBJECTIVE: Patient is comfortable with no acute distress. Fevr overnight Vital Signs Temperature 98.3 F 10/19/19 17:32 Pulse Rate 89 10/19/19 17:32 Respiratory Rate 17 10/19/19 20:06 Blood Pressure 104/63 10/19/19 17:32 O2 Sat by Pulse Oximetry (%) 100 10/19/19 20:06 GENERAL: The patient is awake, alert, and fully oriented, in no acute distress. HEAD: Normal with no signs of trauma. EYES: PERRL, extraocular movements intact, sclera anicteric, conjunctiva clear. ENT: Ears normal, oropharynx clear without exudates, moist mucous membranes. NECK: Trachea midline, full range of motion, supple. LUNGS: Breath sounds equal, clear to auscultation bilaterally, no wheezes, no crackles, no accessory muscle use. HEART: Regular rate and rhythm, S1, S2 without murmur, rub or gallop. ABDOMEN: Soft, NT,ND, normoactive bowel sounds, no guarding, no rebound, no hepatosplenomegaly, no masses. EXTREMITIES: 2+ pulses, warm, well-perfused, no edema. NEUROLOGICAL: Cranial nerves II through XII grossly intact. Normal speech, gait is stable. PSYCH: Normal mood, normal affect. SKIN: Warm, dry, normal turgor, no rashes or lesions noted CBCD WBC 6.2 K/mm3 (4.0-10.0) 10/19/19 07:00 RBC 4.21 M/mm3 (3.60-5.2) 10/19/19 07:00 Hgb 7.8 GM/dL (10.7-15.3) L 10/19/19 07:00 Hct 24.9 % (32.4-45.2) L 10/19/19 07:00 MCV 59.2 fl (80-96) L 10/19/19 07:00 MCHC 31.3 g/dl (32.0-36.0) L 10/19/19 07:00 RDW 20.8 % (11.6-15.6) H 01/03/20 07:00 Plt Count 266 K/MM3 (134-434) 10/19/19 07:00 MPV 8.5 fl (7.5-11.1) 10/19/19 07:00 CMP Sodium 141 mmol/L (136-145) 10/19/19 07:00 Potassium 4.3 mmol/L (3.5-5.1) 10/19/19 07:00 Chloride 112 mmol/L (98-107) H 10/19/19 07:00 Carbon Dioxide 23 mmol/L (21-32) 10/19/19 07:00 Anion Gap 7 MMOL/L (8-16) L 10/19/19 07:00 BUN 6.1 mg/dL (7-18) L 10/19/19 07:00 Creatinine 0.8 mg/dL (0.55-1.3) 10/19/19 07:00 Random Glucose 93 mg/dL (74-106) 10/19/19 07:00 Calcium 8.9 mg/dL (8.5-10.1) 10/19/19 07:00 Total Bilirubin 0.6 mg/dL (0.2-1) 10/19/19 07:00 AST 17 U/L (15-37) 10/19/19 07:00 ALT 18 U/L (13-61) 10/19/19 07:00 Alkaline Phosphatase 65 U/L (45-117) 10/19/19 07:00 Total Protein 6.9 g/dl (6.4-8.2) 10/19/19 07:00 Albumin 2.9 g/dl (3.4-5.0) L 10/19/19 07:00 Home Medications Medication Instructions Recorded Norethindrone-E.estradiol-Iron 1 tab PO DAILY 08/09/19 [Junel Fe 1 mg-20 Mcg Tablet] Ferrous Sulfate 325 mg PO DAILY #30 tablet 10/17/19 Ferrous Sulfate [Iron] 325 mg PO DAILY #30 tablet 10/17/19 Sulfamethoxazole/Trimethoprim 1 each PO BID #14 tablet 10/17/19 [Bactrim Ds Tablet] Sulfamethoxazole/Trimethoprim 1 each PO BID #14 tablet 10/17/19 [Bactrim Ds Tablet] Current Medications Generic Name Dose Route Start Last Admin Trade Name Freq PRN Reason Stop Dose Admin Guaifenesin 600 mg 10/19/19 14:00 10/19/19 14:25 Mucinex - PO 600 mg BID SHERICE Administration Ceftriaxone Sodium 2 gm/ 100 mls @ 200 mls/hr 10/18/19 10:00 10/19/19 09:23 Dextrose IVPB 200 mls/hr DAILY SHERICE Administration Protocol Lactated Ringer's 1,000 ml in 1,000 mls @ 125 mls/hr 10/18/19 06:20 10/19/19 14:25 Lactated Ringers Solution IV 125 mls/hr ASDIR SHERICE Administration Ibuprofen 600 mg 10/19/19 01:36 10/19/19 01:51 Caldolor Injection - IVPB 600 mg Q6H PRN Administration FEVER Microbiology 10/19/19 15:00 Blood - Peripheral Venous Blood Culture - Preliminary NO GROWTH OBTAINED AFTER 24 HOURS, INCUBATION TO CONTINUE FOR 4 DAYS. 10/19/19 14:50 Blood - Peripheral Venous Blood Culture - Preliminary NO GROWTH OBTAINED AFTER 24 HOURS, INCUBATION TO CONTINUE FOR 4 DAYS. 10/17/19 13:00 Blood - Peripheral Venous Blood Culture - Preliminary NO GROWTH OBTAINED AFTER 72 HOURS, INCUBATION TO CONTINUE FOR 2 DAYS. 10/17/19 13:00 Blood - Peripheral Venous Blood Culture - Preliminary NO GROWTH OBTAINED AFTER 72 HOURS, INCUBATION TO CONTINUE FOR 2 DAYS. 10/17/19 18:00 Blood - Blood Bank Unit Blood Culture - Preliminary NO GROWTH OBTAINED AFTER 48 HOURS, INCUBATION TO CONTINUE FOR 3 DAYS. 10/17/19 23:15 Blood - Blood Bank Unit Blood Culture - Preliminary NO GROWTH OBTAINED AFTER 48 HOURS, INCUBATION TO CONTINUE FOR 3 DAYS. 10/17/19 23:15 Blood - Blood Bank Unit Blood Culture - Preliminary NO GROWTH OBTAINED AFTER 24 HOURS, INCUBATION TO CONTINUE FOR 4 DAYS. 10/17/19 12:00 Urine - Urine Clean Catch Urine Culture - Final Normal Urogenital [address] Ct abdomen and pelvis: bl breast implants, low attentuation is seen within the lower pole of the kidney which could be on the basis of acute pyelonephritis. ASSESSMENT AND PLAN: Patient is s 34yo female with PMH leiomyoma s/p myomectomy (2018) and nicotine use presented with generalized fatigue, lethargy, nausea, vomiting, and chills. and was found to have Acute pylonephritis #Acute pyelonephritis: rocephin 2gm IV continue, no growth so far, but continues to have fever s/p ond dose gentamicin 100mg,ID consult #sepsis: kaiser cx oredered , lactic acid level nl now , iVF at 125cc/he, Rocephin 2gm iv daily. DVt px: early ambulation, lovenox possible dc in am if no fever 24hr
[2019-10-20] MEDS ORDERED: ACETAMINOPHEN 325 MG TABLET (FP) PO ONE (00:17)
[2019-10-20] MEDS: LACTATED RINGERS SOLUTION 1,000 ML/1,000 ML INFUS.BAG IV SCH ×2 (06:17→17:40)
[2019-10-20 07:22] LABS: BASO % 0.8 % (0-2.0); EOS % 2.4 % (0-4.5); HEMATOCRIT 25.9 % (32.4-45.2); HEMOGLOBIN 8.1 GM/dL (10.7-15.3); LYMPH % 21.7 % (8-40); MEAN CELL VOLUME 59.7 fl (80-96); MEAN PLT VOLUME 8.9 fl (7.5-11.1); MONO % 13.6 % (3.8-10.2); NEUT % 61.5 % (42.8-82.8); PLATELET COUNT 292 K/MM3 (134-434); RBC 4.34 M/mm3 (3.60-5.2); RDW 20.8 % (11.6-15.6); WHITE BLOOD COUNT 8.4 K/mm3 (4.0-10.0)
[2019-10-20 07:25] LABS: MCH 18.5 pg (25.7-33.7)
[2019-10-20 07:48] LABS: ALBUMIN 2.7 g/dl (3.4-5.0); BILIRUBIN,TOTAL 0.3 mg/dL (0.2-1); BLOOD UREA NITROGEN 5.8 mg/dL (7-18); CALCIUM 8.5 mg/dL (8.5-10.1); CREATININE 0.8 mg/dL (0.55-1.3); POTASSIUM 4.4 mmol/L (3.5-5.1); TOT PROT 6.7 g/dl (6.4-8.2)
[2019-10-20] MEDS ORDERED: DEXTROSE 5%-WATER 100 ML IVPB ONE (08:41)
[2019-10-20] MEDS: CEFTRIAXONE 2 GM in DEXTROSE 5%-WATER 100 ML IVPB SCH (09:00)
[2019-10-20] MEDS: guaiFENesin 600 MG TABLET.ER (FP) PO SCH ×2 (09:00→21:11)
--- NOTE | 2019-10-20 18:59 | PN ---
Progress Note (short form) - Note Progress Note: Patient is comfortable with no acute distress. Fever overnight Vital Signs Temperature 98.0 F 10/20/19 15:12 Pulse Rate 84 10/20/19 15:12 Respiratory Rate 18 10/20/19 15:12 Blood Pressure 112/80 10/20/19 15:12 O2 Sat by Pulse Oximetry (%) 99 10/20/19 09:00 GENERAL: The patient is awake, alert, and fully oriented, in no acute distress. HEAD: Normal with no signs of trauma. EYES: PERRL, extraocular movements intact, sclera anicteric, conjunctiva clear. ENT: Ears normal, oropharynx clear without exudates, moist mucous membranes. NECK: Trachea midline, full range of motion, supple. LUNGS: Breath sounds equal, clear to auscultation bilaterally, no wheezes, no crackles, no accessory muscle use. HEART: Regular rate and rhythm, S1, S2 without murmur, rub or gallop. ABDOMEN: Soft, NT,ND, normoactive bowel sounds, no guarding, no rebound, no hepatosplenomegaly, no masses. EXTREMITIES: 2+ pulses, warm, well-perfused, no edema. NEUROLOGICAL: Cranial nerves II through XII grossly intact. Normal speech, gait is stable. PSYCH: Normal mood, normal affect. SKIN: Warm, dry, normal turgor, no rashes or lesions noted CBCD WBC 8.4 K/mm3 (4.0-10.0) 10/20/19 06:35 RBC 4.34 M/mm3 (3.60-5.2) 10/20/19 06:35 Hgb 8.1 GM/dL (10.7-15.3) L 10/20/19 06:35 Hct 25.9 % (32.4-45.2) L 10/20/19 06:35 MCV 59.7 fl (80-96) L 10/20/19 06:35 MCHC 31.0 g/dl (32.0-36.0) L 10/20/19 06:35 RDW 20.8 % (11.6-15.6) H 10/20/19 06:35 Plt Count 292 K/MM3 (134-434) 10/20/19 06:35 MPV 8.9 fl (7.5-11.1) 10/20/19 06:35 CMP Sodium 139 mmol/L (136-145) 10/20/19 06:35 Potassium 4.4 mmol/L (3.5-5.1) 10/20/19 06:35 Chloride 109 mmol/L (98-107) H 10/20/19 06:35 Carbon Dioxide 23 mmol/L (21-32) 10/20/19 06:35 Anion Gap 7 MMOL/L (8-16) L 10/20/19 06:35 BUN 5.8 mg/dL (7-18) L 10/20/19 06:35 Creatinine 0.8 mg/dL (0.55-1.3) 10/20/19 06:35 Random Glucose 85 mg/dL (74-106) 10/20/19 06:35 Calcium 8.5 mg/dL (8.5-10.1) 10/20/19 06:35 Total Bilirubin 0.3 mg/dL (0.2-1) 10/20/19 06:35 AST 12 U/L (15-37) L 10/20/19 06:35 ALT 20 U/L (13-61) 10/20/19 06:35 Alkaline Phosphatase 64 U/L (45-117) 10/20/19 06:35 Total Protein 6.7 g/dl (6.4-8.2) 10/20/19 06:35 Albumin 2.7 g/dl (3.4-5.0) L 10/20/19 06:35 Home Medications Medication Instructions Recorded Norethindrone-E.estradiol-Iron 1 tab PO DAILY 08/09/19 [Junel Fe 1 mg-20 Mcg Tablet] Ferrous Sulfate 325 mg PO DAILY #30 tablet 10/17/19 Ferrous Sulfate [Iron] 325 mg PO DAILY #30 tablet 10/17/19 Sulfamethoxazole/Trimethoprim 1 each PO BID #14 tablet 10/17/19 [Bactrim Ds Tablet] Sulfamethoxazole/Trimethoprim 1 each PO BID #14 tablet 10/17/19 [Bactrim Ds Tablet] Current Medications Generic Name Dose Route Start Last Admin Trade Name Freq PRN Reason Stop Dose Admin Guaifenesin 600 mg 10/19/19 14:00 10/20/19 09:00 Mucinex - PO 600 mg BID SHERICE Administration Ceftriaxone Sodium 2 gm/ 100 mls @ 200 mls/hr 10/18/19 10:00 10/20/19 09:00 Dextrose IVPB 200 mls/hr DAILY SHERICE Administration Protocol Lactated Ringer's 1,000 ml in 1,000 mls @ 125 mls/hr 10/18/19 06:20 10/20/19 17:40 Lactated Ringers Solution IV 125 mls/hr ASDIR SHERICE Administration Ibuprofen 600 mg 10/19/19 01:36 10/19/19 01:51 Caldolor Injection - IVPB 600 mg Q6H PRN Administration FEVER 10/19/19 15:00 Blood - Peripheral Venous Blood Culture - Preliminary NO GROWTH OBTAINED AFTER 24 HOURS, INCUBATION TO CONTINUE FOR 4 DAYS. 10/19/19 14:50 Blood - Peripheral Venous Blood Culture - Preliminary NO GROWTH OBTAINED AFTER 24 HOURS, INCUBATION TO CONTINUE FOR 4 DAYS. 10/17/19 13:00 Blood - Peripheral Venous Blood Culture - Preliminary NO GROWTH OBTAINED AFTER 72 HOURS, INCUBATION TO CONTINUE FOR 2 DAYS. 10/17/19 13:00 Blood - Peripheral Venous Blood Culture - Preliminary NO GROWTH OBTAINED AFTER 72 HOURS, INCUBATION TO CONTINUE FOR 2 DAYS. 10/17/19 18:00 Blood - Blood Bank Unit Blood Culture - Preliminary NO GROWTH OBTAINED AFTER 48 HOURS, INCUBATION TO CONTINUE FOR 3 DAYS. 10/17/19 23:15 Blood - Blood Bank Unit Blood Culture - Preliminary NO GROWTH OBTAINED AFTER 48 HOURS, INCUBATION TO CONTINUE FOR 3 DAYS. 10/17/19 23:15 Blood - Blood Bank Unit Blood Culture - Preliminary NO GROWTH OBTAINED AFTER 24 HOURS, INCUBATION TO CONTINUE FOR 4 DAYS. 10/17/19 12:00 Urine - Urine Clean Catch Urine Culture - Final Normal Urogenital [address] abdomen and pelvis: bl breast implants, low attentuation is seen within the lower pole of the kidney which could be on the basis of acute pyelonephritis. ASSESSMENT AND PLAN: Patient is s 34yo female with PMH leiomyoma s/p myomectomy (2018) and nicotine use presented with generalized fatigue, lethargy, nausea, vomiting, and chills. and was found to have Acute pylonephritis #Acute pyelonephritis: rocephin 2gm IV continue, no growth so far, but continues to have fever s/p ond dose gentamicin 100mg,ID consult #sepsis: [facility]aiser cx oredered , lactic acid level nl now , iVF at 125cc/he, Rocephin 2gm iv daily. DVt px: early ambulation, lovenox possible dc in am if no fever 24hr will dc her with ceftin 500mg po bid x 14dys, with bacid Visit type - Emergency Visit Emergency Visit: Yes ED Registration Date: 10/17/19 Care time: The patient presented to the Emergency Department on the above date and was hospitalized for further evaluation of their emergent condition. - New Patient This patient is new to me today: No - Critical Care Critical Care patient: No - Discharge Referral Referred to [facility] Med P.C.: No
--- NOTE | 2019-10-20 23:53 | PN ---
Progress Note, Physician Chief Complaint: TEMP 102.9 N0TED NO FOCAL COMPLAINT DENIES DYSURIA/HEMATURIA NO SUPRAPUBIC OR FLANK PAIN BC NO GROWTH - Current Medication List Current Medications: Active Medications Guaifenesin (Mucinex -) 600 mg PO BID [facility] Last Admin: 10/20/19 21:11 Dose: 600 mg Ceftriaxone Sodium 2 gm/ (Dextrose) 100 mls @ 200 mls/hr IVPB DAILY [facility]; Protocol Last Admin: 10/20/19 09:00 Dose: 200 mls/hr Lactated Ringer's (Lactated Ringers Solution) 1,000 ml in 1,000 mls @ 125 mls/ hr IV ASDIR SHERICE Last Admin: 10/20/19 17:40 Dose: 125 mls/hr Ibuprofen (Caldolor Injection -) 600 mg IVPB Q6H PRN PRN Reason: FEVER Last Admin: 10/19/19 01:51 Dose: 600 mg - Objective Vital Signs: Vital Signs Temperature 98.6 F 10/20/19 21:58 Pulse Rate 80 10/20/19 21:58 Respiratory Rate 18 10/20/19 21:58 Blood Pressure 120/81 10/20/19 21:58 O2 Sat by Pulse Oximetry (%) 99 10/20/19 21:00 Constitutional: Yes: No Distress Eyes: Yes: Conjunctiva Clear Cardiovascular: Yes: Regular Rate and Rhythm, S1, S2 Respiratory: Yes: CTA Bilaterally Gastrointestinal: Yes: Normal Bowel Sounds, Soft Genitourinary: Yes: Other (NO CVA TENDERNESS) Labs: CBC, BMP 10/20/19 06:35 10/20/19 06:35 INR, PTT INR 1.14 (0.83-1.09) H 10/17/19 12:55 Assessment/Plan ACUTE L PYELONEPHRITIS FEVER CONTINUE EMPIRIC CEFTRIAXONE
[2019-10-21] MEDS ORDERED: DEXTROSE 5%-WATER 100 ML IVPB ONE (08:31)
[2019-10-21] MEDS: CEFTRIAXONE 2 GM in DEXTROSE 5%-WATER 100 ML IVPB SCH (09:02)
[2019-10-21] MEDS: guaiFENesin 600 MG TABLET.ER (FP) PO SCH (09:03)
[2019-10-21 09:06] VITALS: BP 125/85; PULSE 73; TEMP 97.5
--- NOTE | 2019-10-21 14:37 | DS ---
Physical Exam: SUBJECTIVE: Patient seen and examined OBJECTIVE: Vital Signs Period Temp Pulse Resp BP Sys/Maxwell Pulse Ox Last 24 Hr 97.5 F-98.6 F 73-84 18-18 112-125/80-85 99-99 PHYSICAL EXAM GENERAL: The patient is awake, alert, and fully oriented, in no acute distress. HEAD: Normal with no signs of trauma. EYES: PERRL, extraocular movements intact, sclera anicteric, conjunctiva clear. ENT: Ears normal, nares patent, oropharynx clear without exudates, moist mucous membranes. NECK: Trachea midline, full range of motion, supple. LUNGS: Breath sounds equal, clear to auscultation bilaterally, no wheezes, no crackles, no accessory muscle use. HEART: Regular rate and rhythm, S1, S2 without murmur, rub or gallop. ABDOMEN: Soft, nontender, nondistended, normoactive bowel sounds, no guarding, no rebound, no hepatosplenomegaly, no masses. EXTREMITIES: 2+ pulses, warm, well-perfused, no edema. NEUROLOGICAL: Cranial nerves II through XII grossly intact. Normal speech, gait not observed. PSYCH: Normal mood, normal affect. SKIN: Warm, dry, normal turgor, no rashes or lesions noted. LABS Laboratory Results - last 24 hr 10/17/19 12:55 Blood Type O POSITIVE Antibody Screen Negative Crossmatch See Detail HOSPITAL COURSE: Date of Admission:10/17/19 Date of Discharge: 10/21/19 Discharge Summary Problems reviewed: Yes Reason For Visit: FEVER,ANEMIA,NAUSEA & VOMITING;ABDOMINAL Condition: Stable - Instructions Diet, Activity, Other Instructions: YOUR VISIT You came to the hospital because you were feeling fevers and chills. You were admitted to the hospital for care of a sepsis due to a kidney infection. You were seen by an infectious disease specialist and you received antibiotics and IV fluids. You are now stable and may return home. MEDICATIONS You will need to continue taking antibiotics for 10 more days: - Cefuroxime 500 mg by mouth twice a day for 10 days - Bacid one tablet at bedtime, ADDITIONAL CARE Please make an appointment to see a primary care provider 1 week from today. Since you do not currently have one, you can be seen at the [facility] residents clinic located at [facility] [place] [address]. Please call to make an appointment. If you would like to continue seeing Dr. Srinivasan Phillips, please ask for a Tuesday morning appointment. ADDITIONAL INFORMATION Please call 911 or come directly to the emergency department if you experience unusual headache, vision change, shortness of breath, chest pain, numbness, tingling, loss of alertness/awareness, loss of function, unusual bleeding or any alarming symptoms. Referrals: Joe Milligan MD [Staff Physician] - [address] MD [Staff Physician] - 1 Week Disposition: HOME - Home Medications Comprehensive Discharge Medication List: Ambulatory Orders Cefuroxime Axetil [Ceftin -] 500 mg PO Q12H #20 tablet 10/21/19 Lactobacillus Acidophilus [Bacid -] 1 each PO HS #30 capsule 10/21/19 - Discharge Referral Referred to [facility] Med P.C.: No ATTENDING PHYSICIAN STATEMENT I saw and evaluated the patient. I reviewed the resident's note and discussed the case with the resident. I agree with the resident's findings and plan as documented. SUBJECTIVE: OBJECTIVE: ASSESSMENT AND PLAN:
--- NOTE | 2019-10-21 14:50 | PN ---
Teaching Attending Note Name of Resident: Srinivasan Phillips ATTENDING PHYSICIAN STATEMENT I saw and evaluated the patient. I reviewed the resident's note and discussed the case with the resident. I agree with the resident's findings and plan as documented. SUBJECTIVE: Patient is feeling better with no acute distress. no fever or chills. Vital Signs Temperature 97.5 F L 10/21/19 09:03 Pulse Rate 73 10/21/19 09:03 Respiratory Rate 18 10/21/19 09:03 Blood Pressure 125/85 10/21/19 09:03 O2 Sat by Pulse Oximetry (%) 99 10/21/19 09:00 GENERAL: The patient is awake, alert, and fully oriented, in no acute distress. HEAD: Normal with no signs of trauma. EYES: PERRL, extraocular movements intact, sclera anicteric, conjunctiva clear. ENT: Ears normal, oropharynx clear without exudates, moist mucous membranes. NECK: Trachea midline, full range of motion, supple. LUNGS: Breath sounds equal, clear to auscultation bilaterally, no wheezes, no crackles, no accessory muscle use. HEART: Regular rate and rhythm, S1, S2 without murmur, rub or gallop. ABDOMEN: Soft, NT,ND, normoactive bowel sounds, no guarding, no rebound, no hepatosplenomegaly, no masses. EXTREMITIES: 2+ pulses, warm, well-perfused, no edema. NEUROLOGICAL: Cranial nerves II through XII grossly intact. Normal speech, gait is stable. PSYCH: Normal mood, normal affect. SKIN: Warm, dry, normal turgor, no rashes or lesions noted CBCD WBC 8.4 K/mm3 (4.0-10.0) 10/20/19 06:35 RBC 4.34 M/mm3 (3.60-5.2) 10/20/19 06:35 Hgb 8.1 GM/dL (10.7-15.3) L 10/20/19 06:35 Hct 25.9 % (32.4-45.2) L 10/20/19 06:35 MCV 59.7 fl (80-96) L 10/20/19 06:35 MCHC 31.0 g/dl (32.0-36.0) L 10/20/19 06:35 RDW 20.8 % (11.6-15.6) H 10/20/19 06:35 Plt Count 292 K/MM3 (134-434) 10/20/19 06:35 MPV 8.9 fl (7.5-11.1) 10/20/19 06:35 CMP Sodium 139 mmol/L (136-145) 10/20/19 06:35 Potassium 4.4 mmol/L (3.5-5.1) 10/20/19 06:35 Chloride 109 mmol/L (98-107) H 10/20/19 06:35 Carbon Dioxide 23 mmol/L (21-32) 10/20/19 06:35 Anion Gap 7 MMOL/L (8-16) L 10/20/19 06:35 BUN 5.8 mg/dL (7-18) L 10/20/19 06:35 Creatinine 0.8 mg/dL (0.55-1.3) 10/20/19 06:35 Random Glucose 85 mg/dL (74-106) 10/20/19 06:35 Calcium 8.5 mg/dL (8.5-10.1) 10/20/19 06:35 Total Bilirubin 0.3 mg/dL (0.2-1) 10/20/19 06:35 AST 12 U/L (15-37) L 10/20/19 06:35 ALT 20 U/L (13-61) 10/20/19 06:35 Alkaline Phosphatase 64 U/L (45-117) 10/20/19 06:35 Total Protein 6.7 g/dl (6.4-8.2) 10/20/19 06:35 Albumin 2.7 g/dl (3.4-5.0) L 10/20/19 06:35 Home Medications Medication Instructions Recorded Norethindrone-E.estradiol-Iron 1 tab PO DAILY 08/09/19 [Junel Fe 1 mg-20 Mcg Tablet] Ferrous Sulfate 325 mg PO DAILY #30 tablet 10/17/19 Ferrous Sulfate [Iron] 325 mg PO DAILY #30 tablet 10/17/19 Sulfamethoxazole/Trimethoprim 1 each PO BID #14 tablet 10/17/19 [Bactrim Ds Tablet] Sulfamethoxazole/Trimethoprim 1 each PO BID #14 tablet 10/17/19 [Bactrim Ds Tablet] Current Medications Generic Name Dose Route Start Last Admin Trade Name Freq PRN Reason Stop Dose Admin Guaifenesin 600 mg 10/19/19 14:00 10/20/19 09:00 Mucinex - PO 600 mg BID SHERICE Administration Ceftriaxone Sodium 2 gm/ 100 mls @ 200 mls/hr 10/18/19 10:00 10/20/19 09:00 Dextrose IVPB 200 mls/hr DAILY SHERICE Administration Protocol Lactated Ringer's 1,000 ml in 1,000 mls @ 125 mls/hr 10/18/19 06:20 10/20/19 17:40 Lactated Ringers Solution IV 125 mls/hr ASDIR SHERICE Administration Ibuprofen 600 mg 10/19/19 01:36 10/19/19 01:51 Caldolor Injection - IVPB 600 mg Q6H PRN Administration FEVER 10/19/19 15:00 Blood - Peripheral Venous Blood Culture - Preliminary NO GROWTH OBTAINED AFTER 24 HOURS, INCUBATION TO CONTINUE FOR 4 DAYS. 10/19/19 14:50 Blood - Peripheral Venous Blood Culture - Preliminary NO GROWTH OBTAINED AFTER 24 HOURS, INCUBATION TO CONTINUE FOR 4 DAYS. 10/17/19 13:00 Blood - Peripheral Venous Blood Culture - Preliminary NO GROWTH OBTAINED AFTER 72 HOURS, INCUBATION TO CONTINUE FOR 2 DAYS. 10/17/19 13:00 Blood - Peripheral Venous Blood Culture - Preliminary NO GROWTH OBTAINED AFTER 72 HOURS, INCUBATION TO CONTINUE FOR 2 DAYS. 10/17/19 18:00 Blood - Blood Bank Unit Blood Culture - Preliminary NO GROWTH OBTAINED AFTER 48 HOURS, INCUBATION TO CONTINUE FOR 3 DAYS. 10/17/19 23:15 Blood - Blood Bank Unit Blood Culture - Preliminary NO GROWTH OBTAINED AFTER 48 HOURS, INCUBATION TO CONTINUE FOR 3 DAYS. 10/17/19 23:15 Blood - Blood Bank Unit Blood Culture - Preliminary NO GROWTH OBTAINED AFTER 24 HOURS, INCUBATION TO CONTINUE FOR 4 DAYS. 10/17/19 12:00 Urine - Urine Clean Catch Urine Culture - Final Normal Urogenital [address] Ct abdomen and pelvis: bl breast implants, low attentuation is seen within the lower pole of the kidney which could be on the basis of acute pyelonephritis. ASSESSMENT AND PLAN: Patient is s 34yo female with PMH leiomyoma s/p myomectomy (2018) and nicotine use presented with generalized fatigue, lethargy, nausea, vomiting, and chills. and was found to have Acute pylonephritis #Acute pyelonephritis: last dose of Rocephin 2gm IV continue, will discharge the patient on ceftin for 10 more days, no further fever s/p ond dose gentamicin 100mg, ID is consult #sepsis: [facility] cx negative as above , lactic acid level nl now ,s/p iVF at 125cc/ he, Rocephin 2gm iv daily. DVt px: early ambulation, lovenox dc patient home on ceftin 500mg po bid x 10 days, with bacid
== END 2019-10-21 11:59 | disposition home or self-care (01) | DRG 872 ==
LOC: JER 07:30 → JERBED 12:53 → J7W 20:04
PROVIDERS: ADMIT Internal Medicine; ATTEND Internal Medicine
PROC: 30233N1 Transfusion of Nonautologous Red Blood Cells into Peripheral Vein, Percutaneous Approach (ICD-10-PCS; principal; 2019-10-17)
DX: A41.89 Other specified sepsis (principal); E87.2 Acidosis; N12 Tubulo-interstitial nephritis, not specified as acute or chronic; R51 Headache; R11.2 Nausea with vomiting, unspecified; R10.9 Unspecified abdominal pain; E88.09 Other disorders of plasma-protein metabolism, not elsewhere classified; R00.0 Tachycardia, unspecified; D64.9 Anemia, unspecified
CPT/HCPCS: 36415; 36430; 36511; 71045-TC-FY; 71046-TC-FY; 74177-TC; 80053; 81003; 83605; 83735; 84100; 84443; 84703; 85025; 85610; 86078; 86850; 86900; 86901; 86922; 87040; 87086; 87804; 93005; 93010; 99285-25; J0131; J7030; P9038; P9058; Q9967

== ENCOUNTER 2020-06-08 11:01 | Emergency (ER) | payer BC ==
[2020-06-08 11:21] VITALS: BP 116/75; PULSE 87; TEMP 98.6; BMI 25.6
--- NOTE | 2020-06-08 11:44 | PDOC ---
History of Present Illness - General Chief Complaint: Rash Stated Complaint: HEAT RASH ON LEGS Time Seen by Provider: 06/08/20 11:22 History Source: Patient Exam Limitations: No Limitations - History of Present Illness Initial Comments: 06/08/20 11:33 35-year-old female presents to the ER with itchy bumps to upper thighs bilaterally. Patient states rash began the evening after returning from the [place] which she went to 5 days ago. Patient states did not use different topicals and denies any new allergies but does state history of latex and seafood allergy. Patient denies other areas of concern but does state it spread slightly to her buttocks and lower legs. Timing/Duration: other Severity: mild Associated Symptoms: reports: rash Past History - Travel History Traveled outside of the country in the last 30 days: No Close contact w/someone who was outside of country & ill: No - Medical History Allergies/Adverse Reactions: Allergies Allergy/AdvReac Type Severity Reaction Status Date / Time latex Allergy Mild "itchy and Verified 06/08/20 11:21 hives" No Known Drug Allergies Allergy Verified 06/08/20 11:21 SEAFOOD Allergy Mild "airway Uncoded 06/08/20 11:21 closes up" Home Medications: Ambulatory Orders Cefuroxime Axetil [Ceftin -] 500 mg PO Q12H #20 tablet 10/21/19 Lactobacillus Acidophilus [Bacid -] 1 each PO HS #30 capsule 10/21/19 Anemia: Yes Asthma: No Cancer: No Cardiac Disorders: No CVA: No COPD: No CHF: No Dementia: No Diabetes: No GI Disorders: No Disorders: Yes (multiple uti) HTN: No Hypercholesterolemia: No Liver Disease: No Seizures: No Thyroid Disease: No - Surgical History Abdominal Surgery: Yes (liposuction 04/04/18 in ) - Reproductive History Is Patient Now?: No (#): 1 Para: 0 Cervical CA: No Dysfunctional Uterine Bleeding: No Ectopic : No Endometrial CA: No Polycystic Ovaries: No Therapeutic (s) & number: Yes Tubal Ligation: No Spontaneous : 0 - Immunization History Immunization Up to Date: Yes - Psycho-Social/Smoking History Patient Lives Alone: No Lives with/in: spouse/SO Smoking Status: Yes Smoking History: Current every day smoker Have you smoked in the past 12 months: Yes Number of Cigarettes Smoked Daily: 5 Information on smoking cessation initiated: No 'Breaking Loose' booklet given: 10/18/19 - Substance Abuse Hx (Audit-C & DAST Scrn) How often the patient has a drink containing alcohol: 2-4 times / month Score: In Men: 4 or > Positive; In Women: 3 or > Positive: 2 Screen Result (Pos requires Nsg. Audit-10AR): Negative Review of Systems - Review of Systems Able to Perform ROS?: No Is the patient limited [place] proficient: No Constitutional: No: Symptoms Reported HEENTM: No: Symptoms Reported Respiratory: No: Symptoms reported Cardiac (ROS): No: Symptoms Reported ABD/GI: No: Symptoms Reported : No: Symptoms Reported Musculoskeletal: No: Symptoms Reported Integumentary: Yes: Rash Neurological: No: Symptoms reported *Physical Exam - Vital Signs Last Vital Signs Temp Pulse Resp BP Pulse Ox 98.6 F 87 18 116/75 100 06/08/20 11:17 06/08/20 11:17 06/08/20 11:17 06/08/20 11:17 06/08/20 11:17 - Physical Exam General Appearance: Yes: Nourished, Appropriately Dressed. No: Apparent Distress HEENT: positive: EOMI Neck: positive: Supple Respiratory/Chest: negative: Respiratory Distress Integumentary: positive: Rash (Papular erythematous rash to bilateral extremities with no signs of infection) Neurologic: positive: Motor Strength 5/5 (ambulatory) Medical Decision Making - Medical Decision Making 06/08/20 11:46 Chief complaint: Itchy rash to lower extremities after going to the beach. No other complaints. Exam. Patient with erythematous papular scattered rash to bilateral legs no signs of infection. Plan: Prednisone and will purchase [id number] Benadryl Discharge - Discharge Information Problems reviewed: Yes Clinical Impression/Diagnosis: Rash Condition: Good Disposition: HOME - Follow up/Referral - Patient Discharge Instructions Patient Printed Discharge Instructions: DI for Rash Additional Instructions: please take prednisone as prescribed for the next 2 days. Please take Benadryl 25 mg every 8 hours to control the itching. Wear cotton clothing open to dry and do not put any other topicals to area. - Post Discharge Activity
== END 2020-06-08 11:58 | disposition home or self-care (01) ==
LOC: JERFT 11:01
DX: R21 Rash and other nonspecific skin eruption (principal)
CPT/HCPCS: 99282-25

== ENCOUNTER 2020-10-01 16:31 | Emergency (ER) | payer BC ==
[2020-10-01 16:44] VITALS: BP 116/80; PULSE 79; TEMP 99.2; BMI 24.5
[2020-10-01] MEDS ORDERED: IBUPROFEN 400 MG TABLET (FP) PO ONE ×2 (17:00→17:04)
== END 2020-10-01 17:56 | disposition home or self-care (01) ==
LOC: FER 16:31
DX: R10.32 Left lower quadrant pain (principal)
CPT/HCPCS: 81003; 84703; 87077; 87086; 99284-25

== ENCOUNTER 2021-02-08 19:10 | Emergency (ER) | payer BC ==
[2021-02-08 19:22] VITALS: BP 131/88; PULSE 112; TEMP 99.1; BMI 26.4
[2021-02-08 20:37] LABS: EPI CELLS 24 /uL (0-25.1); HCG,QUALITATIVE URINE Negative; HYALINE CASTS 1 /uL (0-3.1); URINE APPEARANCE CLEAR; URINE BACTERIA 140 /uL (0-1359); URINE BILIRUBIN NEGATIVE (NEGATIVE); URINE COLOR YELLOW; URINE GLUCOSE (UA) NEGATIVE (NEGATIVE); URINE KETONE NEGATIVE (NEGATIVE); URINE LEUK ESTERASE TRACE (NEGATIVE); URINE NITRITE NEGATIVE (NEGATIVE); URINE PROTEIN NEGATIVE (NEGATIVE); URINE RBC 94 /uL (0-23.9); URINE UROBILINOGEN 0.2 mg/dL (0.2-1.0); URINE WBC 18 /uL (0-25.8)
[2021-02-08] MEDS ORDERED: DOXYCYCLINE HYCLATE 100 MG CAPSULE PO ONE ×2 (22:29→22:36)
[2021-02-08] MEDS ORDERED: cefTRIAXone SODIUM 1 GM VIAL ONE (22:36)
[2021-02-08] MEDS ORDERED: LIDOCAINE HCL 1%, 10 MG/ML (20ML VIAL) ONE (22:37)
== END 2021-02-08 22:54 | disposition home or self-care (01) ==
LOC: JER 19:10
DX: N73.9 Female pelvic inflammatory disease, unspecified (principal)
CPT/HCPCS: 36415; 76830-TC; 81003; 84703; 87086; 87186; 87491; 87591; 96372; 99284-25

== ENCOUNTER 2021-04-27 15:14 | Emergency (ER) | payer BC ==
[2021-04-27 15:28] VITALS: BP 120/79; PULSE 86; TEMP 97.4; BMI 26.0
[2021-04-27 17:24] LABS: BASO % 0.9 % (0-2.0); EOS % 3.1 % (0-4.5); HEMATOCRIT 28.6 % (32.4-45.2); HEMOGLOBIN 8.8 GM/dL (10.7-15.3); LYMPH % 21.2 % (8-40); MCHC 30.7 g/dl (32.0-36.0); MEAN PLT VOLUME 8.5 fl (7.5-11.1); MONO % 7.5 % (3.8-10.2); NEUT % 67.3 % (42.8-82.8); PLATELET COUNT 400 10^3/uL (134-434); RBC 4.93 M/mm3 (3.60-5.2); RDW 21.3 % (11.6-15.6)
[2021-04-27 17:29] LABS: MCH 17.8 pg (25.7-33.7)
[2021-04-27 17:32] LABS: HCG,QUALITATIVE URINE Negative
[2021-04-27 17:33] LABS: EPI CELLS >36 /uL (0-25.1); HYALINE CASTS 1 /uL (0-3.1); PH,URINE 6.5 (5.0-8.0); URINE APPEARANCE CLOUDY; URINE BACTERIA 824 /uL (0-1359); URINE BILIRUBIN NEGATIVE (NEGATIVE); URINE COLOR YELLOW; URINE GLUCOSE (UA) NEGATIVE (NEGATIVE); URINE KETONE NEGATIVE (NEGATIVE); URINE LEUK ESTERASE 1+ (NEGATIVE); URINE NITRITE NEGATIVE (NEGATIVE); URINE PROTEIN NEGATIVE (NEGATIVE); URINE RBC 10 /uL (0-23.9); URINE UROBILINOGEN 0.2 mg/dL (0.2-1.0); URINE WBC 27 /uL (0-25.8)
[2021-04-27 17:47] LABS: ALBUMIN 3.7 g/dl (3.4-5.0); BLOOD UREA NITROGEN 11.4 mg/dL (7-18); CALCIUM 9.3 mg/dL (8.5-10.1)
[2021-04-27 17:50] LABS: CREATININE 1.1 mg/dL (0.55-1.3)
[2021-04-27 17:52] LABS: BILIRUBIN,TOTAL 0.2 mg/dL (0.2-1); TOT PROT 7.8 g/dl (6.4-8.2)
== END 2021-04-27 18:31 | disposition home or self-care (01) ==
LOC: JER 15:14
DX: R42 Dizziness and giddiness (principal); D50.9 Iron deficiency anemia, unspecified
CPT/HCPCS: 36415; 80053; 81003; 83540; 83550; 84484; 84703; 85025; 86850; 86900; 86901; 93005; 93010; 99284-25

== ENCOUNTER 2021-10-20 09:25 | Emergency (ER) | payer BC ==
[2021-10-20 09:50] VITALS: BP 125/84; PULSE 103; TEMP 98.7; BMI 26.4
[2021-10-21 17:09] LABS: SARS-CoV-2 NAA Detected (Not Detected)
== END 2021-10-20 11:28 | disposition home or self-care (01) ==
LOC: JER 09:25
DX: J06.9 Acute upper respiratory infection, unspecified (principal)
CPT/HCPCS: 87804; 87807; 99283-25; C9803; U0003; U0005

== ENCOUNTER 2021-12-28 23:01 | Inpatient (IN) | payer BC ==
[2021-12-29] MEDS ORDERED: LACTATED RINGERS SOLUTION 1000 ML INFUS.BAG IV ONE (01:15)
[2021-12-29] MEDS ORDERED: PIPERACILLIN/TAZOB 4.5 GM 4.5 GM in DEXTROSE 5%-WATER 100 ML IVPB ONE (01:44)
[2021-12-29] MEDS ORDERED: ACETAMINOPHEN 1000 MG/100 ML BAG IVPB ONE (02:16)
[2021-12-29] MEDS ORDERED: PIPERACILLIN/TAZOB 4.5 GM 4.5 GM/100 ML BAG IVPB ONE (02:17)
[2021-12-29 02:20] LABS: BASO % 1.1 % (0-2.0); HEMATOCRIT 29.7 % (32.4-45.2); MCH 27.1 pg (25.7-33.7); MCHC 33.5 g/dl (32.0-36.0); MEAN CELL VOLUME 80.9 fl (80-96); MEAN PLT VOLUME 7.2 fl (7.5-11.1); MONO % 8.4 % (3.8-10.2); NEUT % 71.5 % (42.8-82.8); PLATELET COUNT 620 10^3/uL (134-434); RBC 3.68 M/mm3 (3.60-5.2); RDW 20.6 % (11.6-15.6)
[2021-12-29] MEDS ORDERED: ACETAMINOPHEN INJECTION 100 ML IVPB ONE (02:20)
[2021-12-29 02:33] LABS: BLOOD UREA NITROGEN 14.7 mg/dL (7-18)
[2021-12-29 02:34] LABS: ALBUMIN 3.6 g/dl (3.4-5.0)
[2021-12-29 02:37] LABS: CREATININE 0.7 mg/dL (0.55-1.3)
[2021-12-29 02:38] LABS: BILIRUBIN,TOTAL 0.4 mg/dL (0.2-1); TOT PROT 7.7 g/dl (6.4-8.2)
[2021-12-29 02:45] LABS: EPI CELLS 6 /uL (0-25.1); HYALINE CASTS 0 /uL (0-3.1); URINE APPEARANCE CLEAR; URINE BACTERIA 3 /uL (0-1359); URINE BILIRUBIN NEGATIVE (NEGATIVE); URINE COLOR YELLOW; URINE GLUCOSE (UA) NEGATIVE (NEGATIVE); URINE KETONE NEGATIVE (NEGATIVE); URINE LEUK ESTERASE NEGATIVE (NEGATIVE); URINE NITRITE NEGATIVE (NEGATIVE); URINE PROTEIN NEGATIVE (NEGATIVE); URINE RBC 29 /uL (0-23.9); URINE UROBILINOGEN 0.2 mg/dL (0.2-1.0); URINE WBC 9 /uL (0-25.8)
[2021-12-29] MEDS ORDERED: IBUPROFEN 400 MG TABLET (FP) PO PRN (03:50)
[2021-12-29] MEDS ORDERED: ERTAPENEM SODIUM 1 GM in SODIUM CHLORIDE 50 ML IVPB SCH (05:00)
[2021-12-29] MEDS ORDERED: CLINDAMYCIN 600MG PREMIX IVPB 600 MG/50 ML BAG IVPB ONE (05:19)
[2021-12-29] MEDS: CLINDAMYCIN 600MG PREMIX IVPB 600 MG/50 ML BAG IVPB SCH ×2 (05:26→11:02)
[2021-12-29] MEDS ORDERED: ERTAPENEM SODIUM 1 GM VIAL ONE (05:27)
[2021-12-29] MEDS: LACTATED RINGERS SOLUTION 1,000 ML/1,000 ML INFUS.BAG IV SCH (06:40)
[2021-12-29 07:00] LABS: ANISOCYTOSIS 2+; MACROCYTOSIS 0; TEAR DROP CELLS 2+
[2021-12-29 08:21] VITALS: BMI 26.4
[2021-12-29] MEDS: VANCOMYCIN/WATER FOR INJ (PEG) 1,000 MG/200 ML BAG IVPB SCH ×2 (15:02→23:59)
[2021-12-29] MEDS ORDERED: MEROPENEM 1 GM VIAL (RESTRICTED TO ID) IVPB ONE (17:05)
[2021-12-29] MEDS ORDERED: DEXTROSE 5%-WATER 100 ML IVPB ONE (17:05)
[2021-12-29] MEDS: MEROPENEM 1 GM in DEXTROSE 5%-WATER 100 ML IVPB SCH (18:23)
[2021-12-29] MEDS ORDERED: MELATONIN 5 MG TABLETS PO PRN (18:37)
[2021-12-29] MEDS: HEPARIN NA (PORCINE) 5,000 UNITS/ML 1ML VIAL SQ SCH (21:15)
[2021-12-30] MEDS ORDERED: DEXTROSE 5%-WATER 100 ML IVPB ONE ×3 (01:11→17:19)
[2021-12-30] MEDS ORDERED: MEROPENEM 1 GM VIAL (RESTRICTED TO ID) IVPB ONE ×3 (01:11→17:19)
[2021-12-30] MEDS: MEROPENEM 1 GM in DEXTROSE 5%-WATER 100 ML IVPB SCH ×3 (01:13→17:26)
[2021-12-30] MEDS: HEPARIN NA (PORCINE) 5,000 UNITS/ML 1ML VIAL SQ SCH ×3 (05:17→22:04)
[2021-12-30] MEDS: LACTATED RINGERS SOLUTION 1,000 ML/1,000 ML INFUS.BAG IV SCH ×2 (05:18→14:31)
[2021-12-30 08:37] LABS: BASO % 0.7 % (0-2.0); EOS % 2.2 % (0-4.5); HEMATOCRIT 28.5 % (32.4-45.2); HEMOGLOBIN 9.5 GM/dL (10.7-15.3); LYMPH % 19.5 % (8-40); MCH 26.9 pg (25.7-33.7); MCHC 33.2 g/dl (32.0-36.0); MEAN PLT VOLUME 7.1 fl (7.5-11.1); MONO % 6.2 % (3.8-10.2); NEUT % 71.4 % (42.8-82.8); PLATELET COUNT 593 10^3/uL (134-434); RBC 3.52 M/mm3 (3.60-5.2); RDW 20.5 % (11.6-15.6); WHITE BLOOD COUNT 7.6 K/mm3 (4.0-10.0)
[2021-12-30 09:20] LABS: CALCIUM 8.7 mg/dL (8.5-10.1); MAGNESIUM 2.3 mg/dL (1.8-2.4)
[2021-12-30 09:21] LABS: BLOOD UREA NITROGEN 12.4 mg/dL (7-18)
[2021-12-30 09:24] LABS: CREATININE 0.8 mg/dL (0.55-1.3); PHOSPHOROUS 3.1 mg/dL (2.5-4.9)
[2021-12-30] MEDS ORDERED: ACETAMINOPHEN 325 MG TABLET (FP) PO PRN (11:35)
[2021-12-30] MEDS: VANCOMYCIN/WATER FOR INJ (PEG) 1,000 MG/200 ML BAG IVPB SCH (14:48)
[2021-12-30] MEDS: MUPIROCIN 2% TOPICAL OINTMENT 22 GM TUBE TP SCH (22:04)
[2021-12-31] MEDS: VANCOMYCIN/WATER FOR INJ (PEG) 1,000 MG/200 ML BAG IVPB SCH ×2 (01:36→15:54)
[2021-12-31] MEDS ORDERED: DEXTROSE 5%-WATER 100 ML IVPB ONE ×3 (01:43→15:51)
[2021-12-31] MEDS ORDERED: MEROPENEM 1 GM VIAL (RESTRICTED TO ID) IVPB ONE ×3 (01:43→15:51)
[2021-12-31] MEDS: MEROPENEM 1 GM in DEXTROSE 5%-WATER 100 ML IVPB SCH ×3 (02:37→17:21)
[2021-12-31] MEDS: HEPARIN NA (PORCINE) 5,000 UNITS/ML 1ML VIAL SQ SCH ×3 (06:00→22:37)
[2021-12-31] MEDS: LACTATED RINGERS SOLUTION 1,000 ML/1,000 ML INFUS.BAG IV SCH (06:55)
[2021-12-31 07:40] LABS: BASO % 0.9 % (0-2.0); EOS % 3.2 % (0-4.5); HEMATOCRIT 26.7 % (32.4-45.2); HEMOGLOBIN 9.1 GM/dL (10.7-15.3); LYMPH % 22.2 % (8-40); MCH 27.2 pg (25.7-33.7); MCHC 33.9 g/dl (32.0-36.0); MEAN CELL VOLUME 80.3 fl (80-96); MEAN PLT VOLUME 7.2 fl (7.5-11.1); MONO % 7.4 % (3.8-10.2); NEUT % 66.3 % (42.8-82.8); PLATELET COUNT 500 10^3/uL (134-434); RBC 3.33 M/mm3 (3.60-5.2); RDW 20.3 % (11.6-15.6)
[2021-12-31 07:59] LABS: CALCIUM 8.9 mg/dL (8.5-10.1)
[2021-12-31 08:00] LABS: BLOOD UREA NITROGEN 10.4 mg/dL (7-18)
[2021-12-31 08:03] LABS: CREATININE 0.7 mg/dL (0.55-1.3)
[2021-12-31] MEDS: MUPIROCIN 2% TOPICAL OINTMENT 22 GM TUBE TP SCH ×2 (10:23→22:37)
[2022-01-01] MEDS ORDERED: MEROPENEM 1 GM VIAL (RESTRICTED TO ID) IVPB ONE ×3 (01:05→17:14)
[2022-01-01] MEDS ORDERED: DEXTROSE 5%-WATER 100 ML IVPB ONE ×3 (01:05→17:14)
[2022-01-01] MEDS: MEROPENEM 1 GM in DEXTROSE 5%-WATER 100 ML IVPB SCH ×3 (01:40→17:49)
[2022-01-01] MEDS ORDERED: VANCOMYCIN/WATER BAGS 1,250 MG/250 ML BAG IVPB SCH (04:00)
[2022-01-01] MEDS ORDERED: VANCOMYCIN/WATER 1,250 MG/250 ML BAG IVPB SCH (04:00)
[2022-01-01] MEDS: HEPARIN NA (PORCINE) 5,000 UNITS/ML 1ML VIAL SQ SCH ×3 (05:46→21:13)
[2022-01-01 09:44] LABS: BASO % 0.9 % (0-2.0); EOS % 2.8 % (0-4.5); HEMATOCRIT 29.8 % (32.4-45.2); HEMOGLOBIN 9.8 GM/dL (10.7-15.3); LYMPH % 24.4 % (8-40); MCH 26.4 pg (25.7-33.7); MCHC 32.8 g/dl (32.0-36.0); MEAN CELL VOLUME 80.5 fl (80-96); MONO % 5.7 % (3.8-10.2); NEUT % 66.2 % (42.8-82.8); PLATELET COUNT 529 10^3/uL (134-434); RDW 20.3 % (11.6-15.6); WHITE BLOOD COUNT 7.2 K/mm3 (4.0-10.0)
[2022-01-01 10:20] LABS: BLOOD UREA NITROGEN 8.7 mg/dL (7-18)
[2022-01-01 10:21] LABS: CALCIUM 9.4 mg/dL (8.5-10.1)
[2022-01-01 10:23] LABS: CREATININE 0.7 mg/dL (0.55-1.3)
[2022-01-01] MEDS: MUPIROCIN 2% TOPICAL OINTMENT 22 GM TUBE TP SCH ×2 (11:41→21:14)
[2022-01-01] MEDS ORDERED: ERTAPENEM SODIUM 1 GM in SODIUM CHLORIDE 50 ML IVPB ONE (14:51)
[2022-01-02] MEDS ORDERED: MEROPENEM 1 GM VIAL (RESTRICTED TO ID) IVPB ONE (00:18)
[2022-01-02] MEDS ORDERED: DEXTROSE 5%-WATER 100 ML IVPB ONE (00:18)
[2022-01-02] MEDS: MEROPENEM 1 GM in DEXTROSE 5%-WATER 100 ML IVPB SCH ×2 (01:25→10:06)
[2022-01-02] MEDS: HEPARIN NA (PORCINE) 5,000 UNITS/ML 1ML VIAL SQ SCH ×3 (05:43→21:40)
[2022-01-02] MEDS: MUPIROCIN 2% TOPICAL OINTMENT 22 GM TUBE TP SCH ×2 (12:35→21:40)
[2022-01-02] MEDS: ERTAPENEM SODIUM 1 GM in SODIUM CHLORIDE 50 ML IVPB SCH (12:35)
[2022-01-03] MEDS: HEPARIN NA (PORCINE) 5,000 UNITS/ML 1ML VIAL SQ SCH ×3 (05:58→21:48)
[2022-01-03] MEDS: ERTAPENEM SODIUM 1 GM in SODIUM CHLORIDE 50 ML IVPB SCH (09:51)
[2022-01-03] MEDS: MUPIROCIN 2% TOPICAL OINTMENT 22 GM TUBE TP SCH ×2 (09:51→21:48)
[2022-01-03] MEDS ORDERED: ERTAPENEM SODIUM 1 GM in SODIUM CHLORIDE 50 ML IVPB SCH (10:00)
[2022-01-04] MEDS: HEPARIN NA (PORCINE) 5,000 UNITS/ML 1ML VIAL SQ SCH ×2 (05:03→14:46)
[2022-01-04] MEDS: ERTAPENEM SODIUM 1 GM in SODIUM CHLORIDE 50 ML IVPB SCH (10:19)
[2022-01-04] MEDS: MUPIROCIN 2% TOPICAL OINTMENT 22 GM TUBE TP SCH (10:29)
[2022-01-04 10:41] LABS: BASO % 1.3 % (0-2.0); EOS % 3.3 % (0-4.5); HEMATOCRIT 34.3 % (32.4-45.2); HEMOGLOBIN 11.3 GM/dL (10.7-15.3); LYMPH % 22.3 % (8-40); MCH 26.3 pg (25.7-33.7); MEAN CELL VOLUME 79.6 fl (80-96); MEAN PLT VOLUME 7.5 fl (7.5-11.1); MONO % 6.7 % (3.8-10.2); NEUT % 66.4 % (42.8-82.8); PLATELET COUNT 486 10^3/uL (134-434); RBC 4.31 M/mm3 (3.60-5.2); RDW 20.1 % (11.6-15.6); WHITE BLOOD COUNT 6.6 K/mm3 (4.0-10.0)
[2022-01-04 11:06] LABS: ALBUMIN 3.7 g/dl (3.4-5.0); BLOOD UREA NITROGEN 10.9 mg/dL (7-18); CALCIUM 9.6 mg/dL (8.5-10.1); MAGNESIUM 2.3 mg/dL (1.8-2.4)
[2022-01-04 11:09] LABS: CREATININE 0.7 mg/dL (0.55-1.3); PHOSPHOROUS 3.6 mg/dL (2.5-4.9)
[2022-01-04 11:11] LABS: BILIRUBIN,TOTAL 0.8 mg/dL (0.2-1); TOT PROT 7.6 g/dl (6.4-8.2)
[2022-01-04 15:51] VITALS: BP 103/72; PULSE 89; TEMP 98.2
== END 2022-01-04 16:30 | disposition home or self-care (01) | DRG 862 ==
LOC: JER 23:01 → JERBED 12-29 02:42 → J8W 12-29 08:00
PROVIDERS: ADMIT Internal Medicine; ATTEND Internal Medicine
DX: T81.49XA Infection following a procedure, other surgical site, initial encounter (principal); A41.9 Sepsis, unspecified organism; L03.312 Cellulitis of back [any part except buttock and flank]; Z16.12 Extended spectrum beta lactamase (ESBL) resistance; L03.317 Cellulitis of buttock; Y83.9 Surgical procedure, unspecified as the cause of abnormal reaction of the patient, or of later complication, without mention of misadventure at the time of the procedure; B96.20 Unspecified Escherichia coli [E. coli] as the cause of diseases classified elsewhere; F17.210 Nicotine dependence, cigarettes, uncomplicated
CPT/HCPCS: 36415; 36569; 74176-TC; 80048; 80053; 81003; 83735; 84100; 84703; 85025; 87040; 87086; 93005; 93010; 99285-25; C9803-CS; G0480; J1644; U0003; U0005

== ENCOUNTER 2022-01-12 16:56 | Emergency (ER) | payer BC ==
[2022-01-12 17:06] VITALS: BP 122/79; PULSE 86; TEMP 98; BMI 26.4
== END 2022-01-12 18:45 | disposition home or self-care (01) ==
LOC: JERFT 16:56
DX: L03.312 Cellulitis of back [any part except buttock and flank] (principal); Z48.00 Encounter for change or removal of nonsurgical wound dressing
CPT/HCPCS: 99282-25

== ENCOUNTER 2022-01-15 17:03 | Emergency (ER) | payer BC ==
[2022-01-15 17:31] VITALS: BP 104/70; PULSE 80; TEMP 98.1; BMI 26.4
== END 2022-01-15 23:32 | disposition home or self-care (01) ==
LOC: JER 17:03
DX: S21.001A Unspecified open wound of right breast, initial encounter (principal); S21.002A Unspecified open wound of left breast, initial encounter; T81.49XA Infection following a procedure, other surgical site, initial encounter; Y99.9 Unspecified external cause status
CPT/HCPCS: 99281-25

== ENCOUNTER 2022-04-25 18:18 | Emergency (ER) | payer BC ==
[2022-04-25 18:55] VITALS: BP 125/81; PULSE 90; TEMP 98.2; BMI 25.4
== END 2022-04-25 19:24 | disposition home or self-care (01) ==
LOC: JERFT 18:18 → JER 18:18 → JERFT 19:24
DX: L25.9 Unspecified contact dermatitis, unspecified cause (principal)
CPT/HCPCS: 99281-25

== ENCOUNTER 2023-04-02 18:26 | Emergency (ER) | payer BC ==
[2023-04-02 18:35] VITALS: BP 120/70; PULSE 88; RESP 18; TEMP 97.9; BMI 24.5
== END 2023-04-02 20:56 | disposition home or self-care (01) ==
LOC: JERFT 18:26 → JER 18:26 → JERFT 20:56
DX: R21 Rash and other nonspecific skin eruption (principal); L29.9 Pruritus, unspecified; L53.8 Other specified erythematous conditions
CPT/HCPCS: 99283-25

== ENCOUNTER 2023-04-03 22:17 | Emergency (ER) | payer BC ==
[2023-04-03 22:50] VITALS: BP 133/84; PULSE 88; RESP 18; TEMP 98; BMI 25.4
[2023-04-03] MEDS ORDERED: PERMETHRIN 5% TOPICAL CREAM 60 GM TUBE TP ONE (23:31)
== END 2023-04-04 00:20 | disposition home or self-care (01) ==
LOC: JER 22:17
DX: R21 Rash and other nonspecific skin eruption (principal); B86 Scabies
CPT/HCPCS: 99283-25

== ENCOUNTER 2024-07-03 16:43 | Emergency (ER) | payer BC ==
[2024-07-03 17:06] VITALS: BP 107/75; PULSE 83; RESP 20; TEMP 99; BMI 23.0
[2024-07-03] MEDS ORDERED: ACETAMINOPHEN 325 MG TABLET (FP) ONE (17:57)
[2024-07-03] MEDS: ACETAMINOPHEN 325 MG TABLET (FP) PO ONE (18:01)
== END 2024-07-03 18:37 | disposition home or self-care (01) ==
LOC: JERFT 16:43
DX: M79.631 Pain in right forearm (principal)
CPT/HCPCS: 73070-TC-RT-FY; 99283-25

== ENCOUNTER 2024-07-07 20:28 | Emergency (ER) | payer BC ==
[2024-07-07 20:35] VITALS: BP 124/80; PULSE 94; RESP 16; TEMP 98.3; BMI 23.9
[2024-07-07 21:43] LABS: HCG,QUALITATIVE URINE Negative
[2024-07-07 21:46] LABS: EPI CELLS 12 /uL (0-25.1); HYALINE CASTS 3 /uL (0-3.1); PH,URINE 6.5 (5.0-8.0); URINE APPEARANCE CLOUDY; URINE BACTERIA 132 /uL (0-1359); URINE BILIRUBIN NEGATIVE (NEGATIVE); URINE COLOR YELLOW; URINE GLUCOSE (UA) NEGATIVE (NEGATIVE); URINE KETONE TRACE (NEGATIVE); URINE LEUK ESTERASE 1+ (NEGATIVE); URINE NITRITE NEGATIVE (NEGATIVE); URINE PROTEIN 4+ (NEGATIVE); URINE RBC 19052 /uL (0-23.9); URINE WBC 550 /uL (0-25.8)
[2024-07-07] MEDS ORDERED: ACETAMINOPHEN INJECTION 100 ML ONE (22:10)
[2024-07-07] MEDS: ACETAMINOPHEN 1000 MG/100 ML BAG IVPB ONE (22:19)
[2024-07-08] MEDS: CEPHALEXIN MONOHYDRATE 500 MG CAPSULE (UD) PO ONE (00:09)
[2024-07-08] MEDS ORDERED: CEPHALEXIN MONOHYDRATE 500 MG CAPSULE (UD) ONE (00:09)
== END 2024-07-08 00:15 | disposition home or self-care (01) ==
LOC: JER 20:28
PROC: 3E033NZ Introduction of Analgesics, Hypnotics, Sedatives into Peripheral Vein, Percutaneous Approach (ICD-10-PCS; principal; 2024-07-07)
DX: R30.0 Dysuria (principal); R39.15 Urgency of urination; R50.9 Fever, unspecified; R10.2 Pelvic and perineal pain
CPT/HCPCS: 36415; 81003; 84703; 86780; 87081; 87086; 87491; 87591; 87661; 99284-25; J0131